=== PATIENT | female | born 1930 | race African-American/Black ===

== ENCOUNTER 2017-04-23 08:13 | Inpatient (IN) | payer MEDICARE ==
--- NOTE | 2017-04-23 08:31 | PDOC ---
*Physical Exam - Vital Signs Last Vital Signs Temp Pulse Resp BP Pulse Ox 97.8 F 65 17 164/77 98 04/23/17 08:15 04/23/17 08:15 04/23/17 08:15 04/23/17 08:15 04/23/17 08:15 - Physical Exam Comments: 04/23/17 08:31 Pt seen by the Advanced Practice Provider under my direct supervision Pt interviewed and examined Ancillary studies reviewed I agree with plan as outlined by the Advanced Practice Provider ED Treatment Course - LABORATORY CBC & Chemistry Diagram: 04/24/17 07:20 04/24/17 07:20 *DC/Admit/Observation/Transfer Diagnosis at time of Disposition: Diverticulitis - Discharge Dispostion Condition at time of disposition: Fair
--- NOTE | 2017-04-23 09:51 | PDOC ---
History of Present Illness - General Chief Complaint: Pain Stated Complaint: ABD/LEFT FLANK PAIN Time Seen by Provider: 04/23/17 08:24 History Source: Patient - History of Present Illness Timing/Duration: reports: constant Quality: reports: mild Past History - Past Medical History Allergies/Adverse Reactions: Allergies Allergy/AdvReac Type Severity Reaction Status Date / Time No Known Allergies Allergy Verified 04/23/17 08:18 Home Medications: Ambulatory Orders Aspirin [ASA -] 81 mg PO DAILY #0 tab.chew 02/22/15 Polyethylene Glycol 3350 [Miralax 119 gm Btl -] 17 gm PO BID #0 bottle 02/22/15 Docusate Sodium [Colace] 100 mg PO BID PRN 04/09/15 Metformin HCl [Glucophage] 1,000 mg PO BID 04/09/15 Omeprazole [Prilosec] 20 mg PO Q2D 04/09/15 Prednisone [Deltasone -] 1 mg PO DAILY 04/09/15 Atenolol [Tenormin -] 25 mg PO DAILY 04/23/17 Hydralazine HCl [Apresoline -] 10 mg PO DAILY 04/23/17 Diabetes: Yes HTN: Yes Liver Disease: Yes Suicide Attempt (Hx): No - Surgical History Cholecystectomy: Yes - Psycho/Social/Smoking Cessation Hx Anxiety: No Suicidal Ideation: No Smoking Status: No Smoking History: Never smoked Number of Cigarettes Smoked Daily: 0 Hx Alcohol Use: No Drug/Substance Use Hx: No Substance Use Type: None Hx Substance Use Treatment: No Review of Systems - Review of Systems Constitutional: No: Chills, Fever Respiratory: No: Shortness of Breath Cardiac (ROS): No: Chest Pain ABD/GI: No: Nausea, Vomiting : No: Dysuria *Physical Exam - Vital Signs Last Vital Signs Temp Pulse Resp BP Pulse Ox 97.8 F 65 17 164/77 98 04/23/17 08:15 04/23/17 08:15 04/23/17 08:15 04/23/17 08:15 04/23/17 08:15 - Physical Exam General Appearance: Yes: Appropriately Dressed. No: Apparent Distress HEENT: positive: Normal Voice Neck: positive: Supple Respiratory/Chest: positive: Lungs Clear, Normal Breath Sounds. negative: Respiratory Distress Cardiovascular: positive: Regular Rate, S1, S2 Gastrointestinal/Abdominal: positive: Tender (mild ttp to deep palpation to L lower abd, adjacent to LLQ, no CVAT) ED Treatment Course - LABORATORY CBC & Chemistry Diagram: 04/23/17 09:41 04/23/17 09:41 - RADIOLOGY Radiology Studies Ordered: Category Date Time Status ABDOMEN & PELVIS CT WITH CONTR [CT] Stat CT Scan 04/23/17 09:33 Ordered Medical Decision Making - Medical Decision Making 04/23/17 10:38 87 yo F, HTN, DM, TIA, s/p buddy, BIB son for abd pain. Pt reports L sided abd pain x 3 days that only hurts with palpation. No n/v/f/c, change in BM or dysuria. No h/o simialr pain see exam R/o diverticulitis -labs -CT 04/23/17 12:28 CT read as acute diverticulitis to mid and distal sigmoid with microperforation , no abscess. Labs unremarkable. Patient remains stable and well appearing at this time w/ no abd distention or other peritoneal signs on repeat abd exam. Abx in progress. Spoke to surgery, wants pt NPO. Will go to hospitalist service *DC/Admit/Observation/Transfer Diagnosis at time of Disposition: Diverticulitis Qualifiers: Diverticulitis site: large intestine Diverticulitis bleeding: without bleeding Diverticulitis complication: with perforation Qualified Code(s): K57.20 - Diverticulitis of large intestine with perforation and abscess without bleeding - Discharge Dispostion Condition at time of disposition: Fair Admit: Yes - Referrals Referrals: Ignacio Coronel [Primary Care Provider] -
[2017-04-23 10:05] LABS: BASOPHIL 0.7 % (0-2.0); MCH 29.6 pg (25.7-33.7); MCHC 32.5 g/dl (32.0-36.0); MEAN CELL VOLUME 91.1 fl (80-96); MEAN PLT VOLUME 9.7 fl (7.5-11.1); NEUTROPHILS 78.5 % (42.8-82.8); PLATELET COUNT 164 K/MM3 (134-434); RDW 14.5 % (11.6-15.6); WHITE BLOOD COUNT 9.6 K/mm3 (4.0-10.0)
[2017-04-23 10:36] LABS: ALBUMIN 3.3 g/dl (3.4-5.0); ANION GAP 11 (8-16); CO2 28 mmol/L (21-32); CREATININE 0.9 mg/dL (0.55-1.02); GLUCOSE,RANDOM 223 mg/dL (74-106); SGOT/AST 10 U/L (15-37); SGPT/ALT 15 U/L (12-78)
[2017-04-23 10:38] LABS: BILIRUBIN,TOTAL 0.5 mg/dL (0.2-1.0); TOT PROT 6.4 g/dl (6.4-8.2)
[2017-04-23 10:39] LABS: ALK PHOS 67 U/L (45-117)
[2017-04-23] MEDS ORDERED: METRONIDAZOLE 500 MG PREMIXED 100 ML IVPB ONE ×2 (12:06→12:23)
[2017-04-23] MEDS ORDERED: CIPROFLOXACIN 400 MG/D5W 200 ML IVPB ONE (12:06)
[2017-04-23 12:24] LABS: URINE APPEARANCE CLEAR; URINE BILIRUBIN NEGATIVE (NEGATIVE); URINE BLOOD NEGATIVE (NEGATIVE); URINE COLOR STRAW; URINE GLUCOSE (UA) NEGATIVE (NEGATIVE); URINE KETONE NEGATIVE (NEGATIVE); URINE LEUK ESTERASE NEGATIVE (NEGATIVE); URINE NITRITE NEGATIVE (NEGATIVE); URINE PROTEIN NEGATIVE (NEGATIVE); URINE UROBILINOGEN NEGATIVE E.U./dl (0.2-1.0)
[2017-04-23] MEDS ORDERED: SODIUM CHLORIDE 1,000 ML IV STA (12:28)
[2017-04-23] MEDS ORDERED: SODIUM CHLORIDE 500 ML IV STA (12:35)
[2017-04-23] MEDS ORDERED: ATENOLOL 25 MG TABLET (FP) PO ONE (12:59)
[2017-04-23] MEDS ORDERED: hydrALAZINE HCL 10 MG TABLET PO ONE (12:59)
[2017-04-23] MEDS ORDERED: ATENOLOL 25 MG TABLET (FP) ONE (13:02)
--- NOTE | 2017-04-23 13:53 | PDOC ---
*Physical Exam - Vital Signs Last Vital Signs Temp Pulse Resp BP Pulse Ox 99 F 62 16 177/84 98 04/23/17 13:15 04/23/17 13:15 04/23/17 13:15 04/23/17 13:15 04/23/17 13:15 ED Treatment Course - LABORATORY CBC & Chemistry Diagram: 04/23/17 09:41 04/23/17 09:41 - ADDITIONAL ORDERS Additional order review: Laboratory Results 04/23/17 04/23/17 12:16 09:41 Sodium 144 Potassium 4.2 Chloride 105 Carbon Dioxide 28 Anion Gap 11 BUN 13 Creatinine 0.9 Creat Clearance w eGFR 59.23 Random Glucose 223 H Calcium 9.0 Total Bilirubin 0.5 D AST 10 L D ALT 15 D Alkaline Phosphatase 67 D Total Protein 6.4 Albumin 3.3 L D Urine Color Straw Urine Appearance Clear Urine pH 5.0 Urine Protein Negative Urine Glucose (UA) Negative Urine Ketones Negative Urine Blood Negative Urine Nitrite Negative Urine Bilirubin Negative Urine Urobilinogen Negative Ur Leukocyte Esterase Negative 04/23/17 09:41 RBC 3.65 MCV 91.1 MCHC 32.5 RDW 14.5 MPV 9.7 D Neutrophils % 78.5 Lymphocytes % 12.1 D Monocytes % 6.7 Eosinophils % 2.0 D Basophils % 0.7 D - RADIOLOGY Radiology Studies Ordered: Category Date Time Status ABDOMEN & PELVIS CT WITH CONTR [CT] Stat CT Scan 04/23/17 09:33 Completed - Medications Given in the ED: ED Medications Discontinued Medications Generic Name Dose Route Start Last Admin Trade Name Freq PRN Reason Stop Dose Admin Atenolol 25 mg 04/23/17 12:59 04/23/17 13:15 Tenormin - PO 04/23/17 13:00 25 mg ONCE ONE Administration Ciprofloxacin/Dextrose 200 mls @ 200 mls/hr 04/23/17 12:06 04/23/17 13:23 Cipro 400 Mg Premix Ivpb (Restricted To Id) IVPB 04/23/17 13:05 200 mls/hr ONCE ONE Administration Metronidazole 100 mls @ 100 mls/hr 04/23/17 12:06 04/23/17 12:27 Flagyl 500mg Premixed Ivpb - IVPB 04/23/17 13:05 100 mls/hr ONCE ONE Administration Sodium Chloride 1,000 mls @ 1,000 mls/hr 04/23/17 12:28 04/23/17 12:54 Normal Saline - IV 04/23/17 13:27 Not Given ASDIR STA Sodium Chloride 500 mls @ 1,000 mls/hr 04/23/17 12:35 04/23/17 13:15 Normal Saline - IV 04/23/17 12:57 1,000 mls/hr ASDIR STA Administration *DC/Admit/Observation/Transfer Diagnosis at time of Disposition: Diverticulitis Qualifiers: Diverticulitis site: large intestine Diverticulitis bleeding: without bleeding Diverticulitis complication: with perforation Qualified Code(s): K57.20 - Diverticulitis of large intestine with perforation and abscess without bleeding - Discharge Dispostion Condition at time of disposition: Fair Admit: Yes
[2017-04-23] MEDS ORDERED: morphine CARPU-JECT 4 MG/1 ML DISP.SYRIN IVPUSH ONE (14:59)
[2017-04-23] MEDS ORDERED: morphine CARPU-JECT 2 MG/1 ML DISP.SYRIN ONE (15:48)
--- NOTE | 2017-04-23 16:17 | CONSULT ---
Consult Consult Specialty:: Surgery Reason for Consultation:: Abdominal pain , acute diverticulitis with microperforation. - History of Present Illness Chief Complaint: Abdominal pain for 2 days - History Source History Provided By: Patient - Past Medical History Cardio/Vascular: Yes: HTN, Hyperlipdemia Endocrine: Yes: Diabetes Mellitus - Past Surgical History Past Surgical History: Yes: Cholecystectomy, , Hysterectomy - Alcohol/Substance Use Hx Alcohol Use: No - Smoking History Smoking history: Never smoked Aproximately how many cigarettes per day: 0 Home Medications - Allergies Allergies/Adverse Reactions: Allergies Allergy/AdvReac Type Severity Reaction Status Date / Time No Known Allergies Allergy Verified 04/23/17 08:18 - Home Medications Home Medications: Ambulatory Orders Aspirin [ASA -] 81 mg PO DAILY #0 tab.chew 02/22/15 Polyethylene Glycol 3350 [Miralax 119 gm Btl -] 17 gm PO BID #0 bottle 02/22/15 Docusate Sodium [Colace] 100 mg PO BID PRN 04/09/15 Metformin HCl [Glucophage] 1,000 mg PO BID 04/09/15 Omeprazole [Prilosec] 20 mg PO Q2D 04/09/15 Prednisone [Deltasone -] 1 mg PO DAILY 04/09/15 Atenolol [Tenormin -] 25 mg PO DAILY 04/23/17 Hydralazine HCl [Apresoline -] 10 mg PO DAILY 04/23/17 Family Disease History - Family Disease History Family Disease History: CA: Mother (lung) Physical Exam Vital Signs: Vital Signs Temperature 98.8 F 04/23/17 15:38 Pulse Rate 63 04/23/17 15:38 Respiratory Rate 16 04/23/17 15:38 Blood Pressure 177/90 04/23/17 15:38 O2 Sat by Pulse Oximetry (%) 98 04/23/17 15:38 Gastrointestinal: Yes: Tenderness (Tender in left lower quadrant) Imaging - Results Cat Scan: Report Reviewed, Image Reviewed Problem List - Problems (1) Acute diverticulitis Code(s): K57.92 - DVTRCLI OF INTEST, PART UNSP, W/O PERF OR ABSCESS W/O BLEED (2) Perforation bowel Code(s): K63.1 - PERFORATION OF INTESTINE (NONTRAUMATIC) (3) Diabetes Code(s): E11.9 - TYPE 2 DIABETES MELLITUS WITHOUT COMPLICATIONS (4) Hypertension Code(s): I10 - ESSENTIAL (PRIMARY) HYPERTENSION (5) Intractable back pain Code(s): M54.9 - DORSALGIA, UNSPECIFIED Assessment/Plan Acute diverticulitis with perforation , no abscess. Continue antibiotics, Follow up abdominal X-ray. Surgery of not improved.
[2017-04-23 17:11] VITALS: BMI 29.1
[2017-04-23] MEDS ORDERED: KETOROLAC TROMETHAMINE 15 MG/ML VIAL IVPUSH PRN (22:38)
[2017-04-23] MEDS: LEVOFLOXACIN 500 MG IVPB 100 ML IVPB SCH (23:04)
[2017-04-23] MEDS: METRONIDAZOLE 500 MG PREMIXED 100 ML IVPB SCH (23:04)
[2017-04-23] MEDS: SODIUM CHLORIDE 0.45% 1,000 ML IV SCH (23:05)
[2017-04-24] MEDS: METRONIDAZOLE 500 MG PREMIXED 100 ML IVPB SCH ×3 (02:36→17:38)
[2017-04-24] MEDS: INSULIN SLIDING SCALE (NOVOLOG) 1 VIAL SQ SCH ×4 (06:32→22:41)
[2017-04-24 08:28] LABS: BASOPHIL 0.8 % (0-2.0); MCH 29.8 pg (25.7-33.7); MCHC 33.1 g/dl (32.0-36.0); MEAN CELL VOLUME 89.9 fl (80-96); MEAN PLT VOLUME 8.9 fl (7.5-11.1); NEUTROPHILS 67.8 % (42.8-82.8); PLATELET COUNT 160 K/MM3 (134-434); RDW 14.6 % (11.6-15.6); WHITE BLOOD COUNT 6.5 K/mm3 (4.0-10.0)
[2017-04-24 09:02] LABS: ALBUMIN 2.9 g/dl (3.4-5.0); ANION GAP 8 (8-16); CALCIUM 8.6 mg/dL (8.5-10.1); CO2 27 mmol/L (21-32); GLUCOSE,RANDOM 163 mg/dL (74-106)
[2017-04-24 09:06] LABS: ALK PHOS 59 U/L (45-117); BILIRUBIN,TOTAL 0.8 mg/dL (0.2-1.0); CREATININE 0.8 mg/dL (0.55-1.02); SGOT/AST 10 U/L (15-37); SGPT/ALT 13 U/L (12-78); TOT PROT 5.7 g/dl (6.4-8.2)
[2017-04-24] MEDS: HEPARIN NA (PORCINE) 5,000 UNITS/ML 1ML VIAL SQ SCH ×2 (10:58→22:35)
--- NOTE | 2017-04-24 12:07 | HP ---
Admitting History and Physical - Admission History of Present Illness: Pt is a 87 y/o female w/ PMH significant for HTN, diabetes and TIA. Pt presented to the ER w/ a 3 day h/o abdominal pain wc was mostly localized to the LLQ. Pt denied any fever/chills and no nausea/vomiting. In the ER pt had ct scan abd/pelvis wc showed acute diverticulitis w/ microperforation but no abscess. - Past Medical History [employer]: Yes: TIA Cardiovascular: Yes: HTN, Hyperlipdemia ...: No Endocrine: Yes: Diabetes Mellitus - Past Surgical History Past Surgical History: Yes: Cholecystectomy, , Hysterectomy - Smoking History Smoking history: Never smoked Aproximately how many cigarettes per day: 0 - Alcohol/Substance Use Hx Alcohol Use: No Home Medications - Allergies Allergies/Adverse Reactions: Allergies Allergy/AdvReac Type Severity Reaction Status Date / Time No Known Allergies Allergy Verified 04/23/17 08:18 - Home Medications Home Medications: Ambulatory Orders Aspirin [ASA -] 81 mg PO DAILY #0 tab.chew 02/22/15 Polyethylene Glycol 3350 [Miralax 119 gm Btl -] 17 gm PO BID #0 bottle 02/22/15 Docusate Sodium [Colace] 100 mg PO BID PRN 04/09/15 Metformin HCl [Glucophage] 1,000 mg PO BID 04/09/15 Omeprazole [Prilosec] 20 mg PO Q2D 04/09/15 Prednisone [Deltasone -] 1 mg PO DAILY 04/09/15 Atenolol [Tenormin -] 25 mg PO DAILY 04/23/17 Hydralazine HCl [Apresoline -] 10 mg PO DAILY 04/23/17 Family Disease History - Family Disease History Family History: Unremarkable Family Disease History: CA: Mother (lung) Review of Systems - Review of Systems Constitutional: reports: Loss of Appetite, Weakness Eyes: reports: No Symptoms HENT: reports: No Symptoms Neck: reports: No Symptoms Cardiovascular: reports: No Symptoms Respiratory: reports: No Symptoms Gastrointestinal: reports: Abdominal Pain Physical Examination Vital Signs: Vital Signs Temperature 98.4 F 04/24/17 06:00 Pulse Rate 60 04/24/17 06:00 Respiratory Rate 18 04/24/17 09:00 Blood Pressure 155/60 04/24/17 06:00 O2 Sat by Pulse Oximetry (%) 94 L 04/24/17 09:00 Constitutional: Yes: No Distress Eyes: Yes: WNL HENT: Yes: WNL Neck: Yes: WNL, Supple Cardiovascular: Yes: WNL, Regular Rate and Rhythm Respiratory: Yes: WNL, Regular, CTA Bilaterally Gastrointestinal: Yes: Normal Bowel Sounds, Other (minimal LLQ abdominal pain) Musculoskeletal: Yes: WNL Extremities: Yes: WNL Edema: No Neurological: Yes: WNL, Alert, Oriented ...Motor Strength: WNL Labs: CBC, BMP 04/24/17 07:20 04/24/17 07:20 Problem List - Problems (1) Acute diverticulitis Assessment/Plan: Acute diverticulitis w/ microperforation Cont IV antibxs WBC is normal Cont IVF/NPO As per surgery Code(s): K57.92 - DVTRCLI OF INTEST, PART UNSP, W/O PERF OR ABSCESS W/O BLEED (2) Diabetes Assessment/Plan: Cont sliding scale w/ novolog Code(s): E11.9 - TYPE 2 DIABETES MELLITUS WITHOUT COMPLICATIONS (3) Hypertension Assessment/Plan: Will hold antihypertensives due to fact pt is NPO Monitor BP Code(s): I10 - ESSENTIAL (PRIMARY) HYPERTENSION
--- NOTE | 2017-04-24 17:25 | EKG ---
Test Reason : Blood Pressure : / mmHG Vent. Rate : 061 BPM Atrial Rate : 061 BPM P-R Int : 174 ms QRS Dur : 090 ms QT Int : 426 ms P-R-T Axes : 060 -05 146 degrees QTc Int : 428 ms NORMAL SINUS RHYTHM POSSIBLE ANTERIOR INFARCT , AGE UNDETERMINED T WAVE ABNORMALITY, CONSIDER LATERAL ISCHEMIA ABNORMAL ECG Confirmed by MD ANGELIA, SHARI ([id number]) on 04/24/2017 5:24:46 PM Referred By: Confirmed By:SHARI GALAN MD
[2017-04-24] MEDS ORDERED: PT OWN MED DRAWER 7, Y5N ONE (18:44)
--- NOTE | 2017-04-24 18:56 | PN ---
Progress Note, Physician - Current Medication List Current Medications: Active Medications Heparin Sodium (Porcine) (Heparin -) 5,000 unit SQ BID [facility] Last Admin: 04/24/17 10:58 Dose: 5,000 unit Metronidazole (Flagyl 500mg Premixed Ivpb -) 100 mls @ 100 mls/hr IVPB Q8H-IV [facility] Last Admin: 04/24/17 17:38 Dose: 100 mls/hr Levofloxacin (Levaquin 500 Mg Premixed Ivpb -) 100 mls @ 100 mls/hr IVPB DAILY@ 2200 [facility] Last Admin: 04/23/17 23:04 Dose: 100 mls/hr Sodium Chloride (1/2 Normal Saline) 1,000 mls @ 75 mls/hr IV ASDIR [facility] Last Admin: 04/23/17 23:05 Dose: 75 mls/hr Insulin Aspart (Novolog Vial Sliding Scale -) 1 vial SQ ACHS [facility] PRN Reason: Protocol Last Admin: 04/24/17 17:38 Dose: Not Given Ketorolac Tromethamine (Toradol Injection -) 15 mg IVPUSH Q6H PRN PRN Reason: PAIN Stop: 04/28/17 22:37 - Objective Vital Signs: Vital Signs Temperature 98.6 F 04/24/17 15:45 Pulse Rate 66 04/24/17 15:45 Respiratory Rate 18 04/24/17 15:45 Blood Pressure 142/66 04/24/17 15:45 O2 Sat by Pulse Oximetry (%) 94 L 04/24/17 09:00 Labs: CBC, BMP 04/24/17 07:20 04/24/17 07:20 Problem List - Problems (1) Acute diverticulitis Code(s): K57.92 - DVTRCLI OF INTEST, PART UNSP, W/O PERF OR ABSCESS W/O BLEED (2) Perforation bowel Code(s): K63.1 - PERFORATION OF INTESTINE (NONTRAUMATIC) (3) Diabetes Code(s): E11.9 - TYPE 2 DIABETES MELLITUS WITHOUT COMPLICATIONS (4) Hypertension Code(s): I10 - ESSENTIAL (PRIMARY) HYPERTENSION (5) Intractable back pain Code(s): M54.9 - DORSALGIA, UNSPECIFIED Assessment/Plan Surgery:' Patient is afebrile. Abdomen is soft, minimally tender. No guarding. Abdominal X-ray is not done WBC is normal. Continue antibiotics. Keep NPO.
[2017-04-24] MEDS: SODIUM CHLORIDE 0.45% 1,000 ML IV SCH ×2 (22:16→22:34)
[2017-04-24] MEDS: LEVOFLOXACIN 500 MG IVPB 100 ML IVPB SCH (22:35)
[2017-04-25] MEDS: METRONIDAZOLE 500 MG PREMIXED 100 ML IVPB SCH ×2 (01:49→09:24)
[2017-04-25] MEDS: INSULIN SLIDING SCALE (NOVOLOG) 1 VIAL SQ SCH ×4 (06:17→22:33)
[2017-04-25] MEDS: HEPARIN NA (PORCINE) 5,000 UNITS/ML 1ML VIAL SQ SCH ×2 (09:24→22:33)
--- NOTE | 2017-04-25 11:22 | PN ---
Progress Note, Physician - Current Medication List Current Medications: Active Medications Heparin Sodium (Porcine) (Heparin -) 5,000 unit SQ BID [facility] Last Admin: 04/25/17 09:24 Dose: 5,000 unit Metronidazole (Flagyl 500mg Premixed Ivpb -) 100 mls @ 100 mls/hr IVPB Q8H-IV [facility] Last Admin: 04/25/17 09:24 Dose: 100 mls/hr Levofloxacin (Levaquin 500 Mg Premixed Ivpb -) 100 mls @ 100 mls/hr IVPB DAILY@ 2200 [facility] Last Admin: 04/24/17 22:35 Dose: 100 mls/hr Sodium Chloride (1/2 Normal Saline) 1,000 mls @ 75 mls/hr IV ASDIR [facility] Last Admin: 04/24/17 22:34 Dose: 75 mls/hr Insulin Aspart (Novolog Vial Sliding Scale -) 1 vial SQ ACHS [facility] PRN Reason: Protocol Last Admin: 04/25/17 06:17 Dose: Not Given Ketorolac Tromethamine (Toradol Injection -) 15 mg IVPUSH Q6H PRN PRN Reason: PAIN Stop: 04/28/17 22:37 - Objective Vital Signs: Vital Signs Temperature 98.3 F 04/25/17 06:00 Pulse Rate 60 04/25/17 09:29 Respiratory Rate 18 04/25/17 09:29 Blood Pressure 142/84 04/25/17 09:29 O2 Sat by Pulse Oximetry (%) 96 04/24/17 20:36 Labs: CBC, BMP 04/24/17 07:20 04/24/17 07:20 Problem List - Problems (1) Acute diverticulitis Code(s): K57.92 - DVTRCLI OF INTEST, PART UNSP, W/O PERF OR ABSCESS W/O BLEED (2) Perforation bowel Code(s): K63.1 - PERFORATION OF INTESTINE (NONTRAUMATIC) (3) Diabetes Code(s): E11.9 - TYPE 2 DIABETES MELLITUS WITHOUT COMPLICATIONS (4) Hypertension Code(s): I10 - ESSENTIAL (PRIMARY) HYPERTENSION (5) Intractable back pain Code(s): M54.9 - DORSALGIA, UNSPECIFIED Assessment/Plan Surgery: Patient is afebrile. WBC is normal. No abdominal pain. Mild abdominal tenderness. Xray of the abdomen shows no free air in the abdomen. Continue antibiotics. Repeat abdominal CT scan in 2-3 days, if no abscess or perforation noted, will resume oral feeding.
[2017-04-25] MEDS: SODIUM CHLORIDE 0.45% 1,000 ML IV SCH (12:56)
--- NOTE | 2017-04-25 17:28 | CONSULT ---
Consult Consult Specialty:: infectious diseases Reason for Consultation:: diverticulitis - History of Present Illness Chief Complaint: abd pain History of Present Illness: 87 yo F, HTN, DM, TIA, s/p buddy, BIB son for abd pain. Pt reports L sided abd pain x 3 days patient states that the pain occurs with palpation patient was given abx on admission currently patient feels better but still has mild abd pain otherwise she says she has no issues - History Source History Provided By: Patient Limitations to Obtaining History: No Limitations - Past Medical History Cardio/Vascular: Yes: HTN, Hyperlipdemia ...: No Endocrine: Yes: Diabetes Mellitus - Past Surgical History Past Surgical History: Yes: Cholecystectomy, , Hysterectomy - Alcohol/Substance Use Hx Alcohol Use: No - Smoking History Smoking history: Never smoked Aproximately how many cigarettes per day: 0 Home Medications - Allergies Allergies/Adverse Reactions: Allergies Allergy/AdvReac Type Severity Reaction Status Date / Time No Known Allergies Allergy Verified 04/23/17 08:18 - Home Medications Home Medications: Ambulatory Orders Aspirin [ASA -] 81 mg PO DAILY #0 tab.chew 02/22/15 Polyethylene Glycol 3350 [Miralax 119 gm Btl -] 17 gm PO BID #0 bottle 02/22/15 Docusate Sodium [Colace] 100 mg PO BID PRN 04/09/15 Metformin HCl [Glucophage] 1,000 mg PO BID 04/09/15 Omeprazole [Prilosec] 20 mg PO Q2D 04/09/15 Prednisone [Deltasone -] 1 mg PO DAILY 04/09/15 Atenolol [Tenormin -] 25 mg PO DAILY 04/23/17 Hydralazine HCl [Apresoline -] 10 mg PO DAILY 04/23/17 Family Disease History - Family Disease History Family Disease History: CA: Mother (lung) Review of Systems - Review of Systems Constitutional: reports: No Symptoms Eyes: reports: No Symptoms HENT: reports: No Symptoms Neck: reports: No Symptoms Cardiovascular: reports: No Symptoms Respiratory: reports: No Symptoms Gastrointestinal: reports: Abdominal Pain (llq) Genitourinary: reports: No Symptoms Neurological: reports: No Symptoms Endocrine: reports: No Symptoms Hematology/Lymphatic: reports: No Symptoms Psychiatric: reports: No Symptoms Physical Exam Vital Signs: Vital Signs Temperature 98.0 F 04/25/17 16:15 Pulse Rate 66 04/25/17 16:15 Respiratory Rate 18 04/25/17 16:15 Blood Pressure 159/80 04/25/17 16:15 O2 Sat by Pulse Oximetry (%) 97 04/25/17 09:00 Constitutional: Yes: Well Nourished, Calm, Mild Distress Eyes: Yes: Conjunctiva Clear Cardiovascular: Yes: Regular Rate and Rhythm Respiratory: Yes: Regular, CTA Bilaterally Gastrointestinal: Yes: Soft, Tenderness (llq) Musculoskeletal: Yes: WNL Extremities: Yes: WNL Neurological: Yes: Alert, Oriented Psychiatric: Yes: Alert, Oriented Labs: CBC, BMP 04/24/17 07:20 04/24/17 07:20 Imaging - Results X-ray: Report Reviewed, Image Reviewed Cat Scan: Report Reviewed, Image Reviewed Assessment/Plan Problem List - Problems (1) Acute diverticulitis Code(s): K57.92 - DVTRCLI OF INTEST, PART UNSP, W/O PERF OR ABSCESS W/O BLEED (2) Perforation bowel Code(s): K63.1 - PERFORATION OF INTESTINE (NONTRAUMATIC) (3) Diabetes Code(s): E11.9 - TYPE 2 DIABETES MELLITUS WITHOUT COMPLICATIONS (4) Hypertension Code(s): I10 - ESSENTIAL (PRIMARY) HYPERTENSION (5) Intractable back pain Code(s): M54.9 - DORSALGIA, UNSPECIFIED patients ct scan shows micro perf plan as per surgery will start on abx hydration rest as per primary
[2017-04-25] MEDS: PIPERACILLIN/TAZOB 3.375 GM 50 ML IVPB SCH (18:14)
--- NOTE | 2017-04-25 19:46 | PN ---
Progress Note, Physician History of Present Illness: No new complaints - Current Medication List Current Medications: Active Medications Heparin Sodium (Porcine) (Heparin -) 5,000 unit SQ BID [facility] Last Admin: 04/25/17 09:24 Dose: 5,000 unit Levofloxacin (Levaquin 500 Mg Premixed Ivpb -) 100 mls @ 100 mls/hr IVPB DAILY@ 2200 [facility] Last Admin: 04/24/17 22:35 Dose: 100 mls/hr Sodium Chloride (1/2 Normal Saline) 1,000 mls @ 75 mls/hr IV ASDIR [facility] Last Admin: 04/25/17 12:56 Dose: 75 mls/hr Piperacillin Sod/Tazobactam Sod (Zosyn 3.375gm Ivpb (Pre-Docked)) 50 mls @ 100 mls/hr IVPB Q8H-IV [facility] PRN Reason: Protocol Last Admin: 04/25/17 18:14 Dose: 100 mls/hr Insulin Aspart (Novolog Vial Sliding Scale -) 1 vial SQ ACHS [facility] PRN Reason: Protocol Last Admin: 04/25/17 18:16 Dose: Not Given Ketorolac Tromethamine (Toradol Injection -) 15 mg IVPUSH Q6H PRN PRN Reason: PAIN Stop: 04/28/17 22:37 - Objective Vital Signs: Vital Signs Temperature 98.8 F 04/25/17 18:12 Pulse Rate 71 04/25/17 18:12 Respiratory Rate 19 04/25/17 18:12 Blood Pressure 155/84 04/25/17 18:12 O2 Sat by Pulse Oximetry (%) 97 04/25/17 09:00 Constitutional: Yes: No Distress HENT: Yes: WNL Neck: Yes: WNL, Supple Cardiovascular: Yes: WNL, Regular Rate and Rhythm Respiratory: Yes: WNL, Regular, CTA Bilaterally Gastrointestinal: Yes: Normal Bowel Sounds, Soft Labs: CBC, BMP 04/24/17 07:20 04/24/17 07:20 Problem List - Problems (1) Acute diverticulitis Assessment/Plan: Acute diverticulitis w/ microperforation Cont IV antibxs WBC is normal Cont IVF/NPO As per surgery ID consult Code(s): K57.92 - DVTRCLI OF INTEST, PART UNSP, W/O PERF OR ABSCESS W/O BLEED (2) Diabetes Assessment/Plan: Cont sliding scale w/ novolog Code(s): E11.9 - TYPE 2 DIABETES MELLITUS WITHOUT COMPLICATIONS (3) Hypertension Assessment/Plan: Will hold antihypertensives due to fact pt is NPO Monitor BP Code(s): I10 - ESSENTIAL (PRIMARY) HYPERTENSION
[2017-04-25] MEDS: LEVOFLOXACIN 500 MG IVPB 100 ML IVPB SCH (22:28)
[2017-04-26] MEDS: PIPERACILLIN/TAZOB 3.375 GM 50 ML IVPB SCH ×3 (01:57→16:59)
[2017-04-26] MEDS: SODIUM CHLORIDE 0.45% 1,000 ML IV SCH ×2 (02:02→16:59)
[2017-04-26] MEDS: INSULIN SLIDING SCALE (NOVOLOG) 1 VIAL SQ SCH ×4 (06:37→23:41)
[2017-04-26] MEDS: HEPARIN NA (PORCINE) 5,000 UNITS/ML 1ML VIAL SQ SCH ×2 (09:48→21:21)
--- NOTE | 2017-04-26 12:53 | PN ---
Progress Note, Physician - Current Medication List Current Medications: Active Medications Heparin Sodium (Porcine) (Heparin -) 5,[address] [facility] Last Admin: 04/26/17 09:48 Dose: 5,000 unit Levofloxacin (Levaquin 500 Mg Premixed Ivpb -) 100 mls @ 100 mls/hr IVPB DAILY@ 2200 [facility] Last Admin: 04/25/17 22:28 Dose: 100 mls/hr Sodium Chloride (1/2 Normal Saline) 1,000 mls @ 75 mls/hr IV ASDIR [facility] Last Admin: 04/26/17 02:02 Dose: 75 mls/hr Piperacillin Sod/Tazobactam Sod (Zosyn 3.375gm Ivpb (Pre-Docked)) 50 mls @ 100 mls/hr IVPB Q8H-IV [facility] PRN Reason: Protocol Last Admin: 04/26/17 09:48 Dose: 100 mls/hr Insulin Aspart (Novolog Vial Sliding Scale -) 1 vial SQ ACHS [facility] PRN Reason: Protocol Last Admin: 04/26/17 11:21 Dose: Not Given Ketorolac Tromethamine (Toradol Injection -) 15 mg IVPUSH Q6H PRN PRN Reason: PAIN Stop: 04/28/17 22:37 - Objective Vital Signs: Vital Signs Temperature 98.2 F 04/26/17 06:00 Pulse Rate 57 L 04/26/17 06:00 Respiratory Rate 18 04/26/17 06:00 Blood Pressure 143/58 04/26/17 06:00 O2 Sat by Pulse Oximetry (%) 98 04/25/17 22:00 Labs: CBC, BMP 04/24/17 07:20 04/24/17 07:20 Problem List - Problems (1) Acute diverticulitis Code(s): K57.92 - DVTRCLI OF INTEST, PART UNSP, W/O PERF OR ABSCESS W/O BLEED (2) Perforation bowel Code(s): K63.1 - PERFORATION OF INTESTINE (NONTRAUMATIC) (3) Diabetes Code(s): E11.9 - TYPE 2 DIABETES MELLITUS WITHOUT COMPLICATIONS (4) Hypertension Code(s): I10 - ESSENTIAL (PRIMARY) HYPERTENSION (5) Intractable back pain Code(s): M54.9 - DORSALGIA, UNSPECIFIED Assessment/Plan Surgery: Patient is comfortable, no abdominal pain. WBC is normal, Chemistry is normal. follow up abdominal CT scan tomorrow, if normal will resume oral feeding.
[2017-04-26 12:59] LABS: BASOPHIL 0.7 % (0-2.0); EOSINOPHIL 0.8 % (0-4.5); MCH 29.9 pg (25.7-33.7); MCHC 33.2 g/dl (32.0-36.0); MEAN CELL VOLUME 89.9 fl (80-96); MEAN PLT VOLUME 8.2 fl (7.5-11.1); NEUTROPHILS 66.4 % (42.8-82.8); PLATELET COUNT 210 K/MM3 (134-434); RDW 14.6 % (11.6-15.6); WHITE BLOOD COUNT 5.2 K/mm3 (4.0-10.0)
[2017-04-26 13:25] LABS: ALBUMIN 3.2 g/dl (3.4-5.0); ANION GAP 12 (8-16); CALCIUM 8.9 mg/dL (8.5-10.1); CO2 25 mmol/L (21-32); CREATININE 0.9 mg/dL (0.55-1.02); GLUCOSE,RANDOM 109 mg/dL (74-106); SGPT/ALT 15 U/L (12-78)
[2017-04-26 13:30] LABS: ALK PHOS 64 U/L (45-117); BILIRUBIN,TOTAL 0.6 mg/dL (0.2-1.0); SGOT/AST 21 U/L (15-37); TOT PROT 6.1 g/dl (6.4-8.2)
--- NOTE | 2017-04-26 16:50 | PN ---
Progress Note, Physician History of Present Illness: patient doing well today no abd pain according to the patient - Current Medication List Current Medications: Active Medications Heparin Sodium (Porcine) (Heparin -) 5,000 unit SQ BID [facility] Last Admin: 04/26/17 09:48 Dose: 5,000 unit Levofloxacin (Levaquin 500 Mg Premixed Ivpb -) 100 mls @ 100 mls/hr IVPB DAILY@ 2200 [facility] Last Admin: 04/25/17 22:28 Dose: 100 mls/hr Sodium Chloride (1/2 Normal Saline) 1,000 mls @ 75 mls/hr IV ASDIR [facility] Last Admin: 04/26/17 02:02 Dose: 75 mls/hr Piperacillin Sod/Tazobactam Sod (Zosyn 3.375gm Ivpb (Pre-Docked)) 50 mls @ 100 mls/hr IVPB Q8H-IV [facility]ICE PRN Reason: Protocol Last Admin: 04/26/17 09:48 Dose: 100 mls/hr Insulin Aspart (Novolog Vial Sliding Scale -) 1 vial SQ ACHS [facility] PRN Reason: Protocol Last Admin: 04/26/17 11:21 Dose: Not Given Ketorolac Tromethamine (Toradol Injection -) 15 mg IVPUSH Q6H PRN PRN Reason: PAIN Stop: 04/28/17 22:37 - Objective Vital Signs: Vital Signs Temperature 97.9 F 04/26/17 15:54 Pulse Rate 63 04/26/17 15:54 Respiratory Rate 18 04/26/17 15:54 Blood Pressure 160/81 04/26/17 15:54 O2 Sat by Pulse Oximetry (%) 96 04/26/17 09:00 Constitutional: Yes: No Distress, Calm Cardiovascular: Yes: Regular Rate and Rhythm Respiratory: Yes: Regular, CTA Bilaterally Gastrointestinal: Yes: Soft, Hypoactive Bowel Sounds, Other Musculoskeletal: Yes: WNL Extremities: Yes: WNL Neurological: Yes: Alert, Oriented Psychiatric: Yes: Alert, Oriented Labs: CBC, BMP 04/26/17 12:40 04/26/17 12:40 Assessment/Plan Problem List - Problems (1) Acute diverticulitis Code(s): K57.92 - DVTRCLI OF INTEST, PART UNSP, W/O PERF OR ABSCESS W/O BLEED (2) Perforation bowel Code(s): K63.1 - PERFORATION OF INTESTINE (NONTRAUMATIC) (3) Diabetes Code(s): E11.9 - TYPE 2 DIABETES MELLITUS WITHOUT COMPLICATIONS (4) Hypertension Code(s): I10 - ESSENTIAL (PRIMARY) HYPERTENSION (5) Intractable back pain Code(s): M54.9 - DORSALGIA, UNSPECIFIED patients ct scan shows micro perf plan repeat ct scan tomorrow continue abx rest as per primary
--- NOTE | 2017-04-26 21:02 | PN ---
Progress Note, Physician History of Present Illness: No new complaints - Current Medication List Current Medications: Active Medications Heparin Sodium (Porcine) (Heparin -) 5,000 unit SQ BID [facility] Last Admin: 04/26/17 09:48 Dose: 5,000 unit Levofloxacin (Levaquin 500 Mg Premixed Ivpb -) 100 mls @ 100 mls/hr IVPB DAILY@ 2200 [facility] Last Admin: 04/25/17 22:28 Dose: 100 mls/hr Sodium Chloride (1/2 Normal Saline) 1,000 mls @ 75 mls/hr IV ASDIR [facility] Last Admin: 04/26/17 16:59 Dose: 75 mls/hr Piperacillin Sod/Tazobactam Sod (Zosyn 3.375gm Ivpb (Pre-Docked)) 50 mls @ 100 mls/hr IVPB Q8H-IV [facility] PRN Reason: Protocol Last Admin: 04/26/17 16:59 Dose: 100 mls/hr Insulin Aspart (Novolog Vial Sliding Scale -) 1 vial SQ ACHS [facility] PRN Reason: Protocol Last Admin: 04/26/17 16:58 Dose: Not Given Ketorolac Tromethamine (Toradol Injection -) 15 mg IVPUSH Q6H PRN PRN Reason: PAIN Stop: 04/28/17 22:37 - Objective Vital Signs: Vital Signs Temperature 98.8 F 04/26/17 20:01 Pulse Rate 59 L 04/26/17 20:01 Respiratory Rate 14 04/26/17 20:01 Blood Pressure 148/66 04/26/17 20:01 O2 Sat by Pulse Oximetry (%) 96 04/26/17 09:00 Constitutional: Yes: No Distress Eyes: Yes: WNL HENT: Yes: WNL Neck: Yes: WNL, Supple Cardiovascular: Yes: WNL, Regular Rate and Rhythm Respiratory: Yes: WNL, Regular, CTA Bilaterally Gastrointestinal: Yes: WNL, Soft Labs: CBC, BMP 04/26/17 12:40 04/26/17 12:40 Problem List - Problems (1) Acute diverticulitis Assessment/Plan: Acute diverticulitis w/ microperforation Cont IV zosyn WBC is normal XRAY did not show any free air Cont IVF/NPO As per surgery Repeat ct scan abd/pelvis before advancing diet Code(s): K57.92 - DVTRCLI OF INTEST, PART UNSP, W/O PERF OR ABSCESS W/O BLEED (2) Diabetes Assessment/Plan: Cont sliding scale w/ novolog Code(s): E11.9 - TYPE 2 DIABETES MELLITUS WITHOUT COMPLICATIONS
[2017-04-26] MEDS: LEVOFLOXACIN 500 MG IVPB 100 ML IVPB SCH (21:22)
[2017-04-27] MEDS: SODIUM CHLORIDE 0.45% 1,000 ML IV SCH ×2 (03:04→05:57)
[2017-04-27] MEDS: PIPERACILLIN/TAZOB 3.375 GM 50 ML IVPB SCH ×3 (03:04→17:27)
[2017-04-27] MEDS: INSULIN SLIDING SCALE (NOVOLOG) 1 VIAL SQ SCH ×4 (06:01→22:23)
[2017-04-27] MEDS: HEPARIN NA (PORCINE) 5,000 UNITS/ML 1ML VIAL SQ SCH ×2 (09:42→22:14)
[2017-04-27] MEDS: amLODIPine BESYLATE 5 MG TABLET (FP) PO SCH (14:54)
--- NOTE | 2017-04-27 14:54 | PN ---
Progress Note, Physician History of Present Illness: patient stable no new issues feels a lot better - Current Medication List Current Medications: Active Medications Amlodipine Besylate (Norvasc -) 5 mg PO DAILY [facility] Heparin Sodium (Porcine) (Heparin -) 5,000 unit SQ BID [facility] Last Admin: 04/27/17 09:42 Dose: 5,000 unit Levofloxacin (Levaquin 500 Mg Premixed Ivpb -) 100 mls @ 100 mls/hr IVPB DAILY@ 2200 [facility] Last Admin: 04/26/17 21:22 Dose: 100 mls/hr Sodium Chloride (1/2 Normal Saline) 1,000 mls @ 75 mls/hr IV ASDIR [facility] Last Admin: 04/27/17 05:57 Dose: 75 mls/hr Piperacillin Sod/Tazobactam Sod (Zosyn 3.375gm Ivpb (Pre-Docked)) 50 mls @ 100 mls/hr IVPB Q8H-IV [facility] PRN Reason: Protocol Last Admin: 04/27/17 09:42 Dose: 100 mls/hr Insulin Aspart (Novolog Vial Sliding Scale -) 1 vial SQ ACHS [facility] PRN Reason: Protocol Last Admin: 04/27/17 11:13 Dose: Not Given Ketorolac Tromethamine (Toradol Injection -) 15 mg IVPUSH Q6H PRN PRN Reason: PAIN Stop: 04/28/17 22:37 - Objective Vital Signs: Vital Signs Temperature 98.5 F 04/27/17 06:00 Pulse Rate 74 04/27/17 06:00 Respiratory Rate 16 04/27/17 06:00 Blood Pressure 134/77 04/27/17 06:00 O2 Sat by Pulse Oximetry (%) 100 04/27/17 09:00 Constitutional: Yes: No Distress, Calm Cardiovascular: Yes: Regular Rate and Rhythm Respiratory: Yes: Regular, CTA Bilaterally Gastrointestinal: Yes: Soft Musculoskeletal: Yes: WNL Extremities: Yes: WNL Neurological: Yes: Alert, Oriented Psychiatric: Yes: Alert, Oriented Labs: CBC, BMP 04/26/17 12:40 04/26/17 12:40 Assessment/Plan Problem List - Problems (1) Acute diverticulitis Code(s): K57.92 - DVTRCLI OF INTEST, PART UNSP, W/O PERF OR ABSCESS W/O BLEED (2) Perforation bowel Code(s): K63.1 - PERFORATION OF INTESTINE (NONTRAUMATIC) (3) Diabetes Code(s): E11.9 - TYPE 2 DIABETES MELLITUS WITHOUT COMPLICATIONS (4) Hypertension Code(s): I10 - ESSENTIAL (PRIMARY) HYPERTENSION (5) Intractable back pain Code(s): M54.9 - DORSALGIA, UNSPECIFIED patients ct scan shows micro perf plan await ct scan report rest continue as per primary continue abx
--- NOTE | 2017-04-27 17:15 | PN ---
Progress Note, Physician - Current Medication List Current Medications: Active Medications Amlodipine Besylate (Norvasc -) 5 mg PO DAILY [facility] Last Admin: 04/27/17 14:54 Dose: 5 mg Heparin Sodium (Porcine) (Heparin -) 5,000 unit SQ BID [facility] Last Admin: 04/27/17 09:42 Dose: 5,000 unit Levofloxacin (Levaquin 500 Mg Premixed Ivpb -) 100 mls @ 100 mls/hr IVPB DAILY@ 2200 [facility] Last Admin: 04/26/17 21:22 Dose: 100 mls/hr Sodium Chloride (1/2 Normal Saline) 1,000 mls @ 75 mls/hr IV ASDIR [facility] Last Admin: 04/27/17 05:57 Dose: 75 mls/hr Piperacillin Sod/Tazobactam Sod (Zosyn 3.375gm Ivpb (Pre-Docked)) 50 mls @ 100 mls/hr IVPB Q8H-IV [facility] PRN Reason: Protocol Last Admin: 04/27/17 09:42 Dose: 100 mls/hr Insulin Aspart (Novolog Vial Sliding Scale -) 1 vial SQ ACHS [facility] PRN Reason: Protocol Last Admin: 04/27/17 16:17 Dose: Not Given Ketorolac Tromethamine (Toradol Injection -) 15 mg IVPUSH Q6H PRN PRN Reason: PAIN Stop: 04/28/17 22:37 - Objective Vital Signs: Vital Signs Temperature 97.5 F L 04/27/17 15:36 Pulse Rate 63 04/27/17 15:36 Respiratory Rate 20 04/27/17 15:36 Blood Pressure 200/89 04/27/17 15:36 O2 Sat by Pulse Oximetry (%) 100 04/27/17 09:00 Labs: CBC, BMP 04/26/17 12:40 04/26/17 12:40 Problem List - Problems (1) Acute diverticulitis Code(s): K57.92 - DVTRCLI OF INTEST, PART UNSP, W/O PERF OR ABSCESS W/O BLEED (2) Perforation bowel Code(s): K63.1 - PERFORATION OF INTESTINE (NONTRAUMATIC) (3) Diabetes Code(s): E11.9 - TYPE 2 DIABETES MELLITUS WITHOUT COMPLICATIONS (4) Hypertension Code(s): I10 - ESSENTIAL (PRIMARY) HYPERTENSION (5) Intractable back pain Code(s): M54.9 - DORSALGIA, UNSPECIFIED Assessment/Plan Patient is afebrile, Abdomen is soft , not tender. CT scan shows improving sigmoid diverticulitis, no free air. No abscess. resume clear liquids. Improving: sigmoid diverticulitis, Continue antibiotics.
--- NOTE | 2017-04-27 19:36 | PN ---
Progress Note, Physician History of Present Illness: No new complaints BP elevated - Current Medication List Current Medications: Active Medications Amlodipine Besylate (Norvasc -) 5 mg PO DAILY [facility] Last Admin: 04/27/17 14:54 Dose: 5 mg Heparin Sodium (Porcine) (Heparin -) 5,000 unit SQ BID [facility] Last Admin: 04/27/17 09:42 Dose: 5,000 unit Levofloxacin (Levaquin 500 Mg Premixed Ivpb -) 100 mls @ 100 mls/hr IVPB DAILY@ 2200 [facility] Last Admin: 04/26/17 21:22 Dose: 100 mls/hr Sodium Chloride (1/2 Normal Saline) 1,000 mls @ 75 mls/hr IV ASDIR [facility] Last Admin: 04/27/17 05:57 Dose: 75 mls/hr Piperacillin Sod/Tazobactam Sod (Zosyn 3.375gm Ivpb (Pre-Docked)) 50 mls @ 100 mls/hr IVPB Q8H-IV [facility] PRN Reason: Protocol Last Admin: 04/27/17 17:27 Dose: 100 mls/hr Insulin Aspart (Novolog Vial Sliding Scale -) 1 vial SQ ACHS [facility] PRN Reason: Protocol Last Admin: 04/27/17 16:17 Dose: Not Given Ketorolac Tromethamine (Toradol Injection -) 15 mg IVPUSH Q6H PRN PRN Reason: PAIN Stop: 04/28/17 22:37 - Objective Vital Signs: Vital Signs Temperature 98.8 F 04/27/17 19:00 Pulse Rate 70 04/27/17 19:00 Respiratory Rate 20 04/27/17 19:00 Blood Pressure 156/79 04/27/17 19:00 O2 Sat by Pulse Oximetry (%) 100 04/27/17 09:00 Constitutional: Yes: No Distress HENT: Yes: WNL Neck: Yes: WNL, Supple Cardiovascular: Yes: WNL, Regular Rate and Rhythm Respiratory: Yes: WNL, Regular, CTA Bilaterally Gastrointestinal: Yes: WNL, Normal Bowel Sounds, Soft Labs: CBC, BMP 04/26/17 12:40 04/26/17 12:40 Problem List - Problems (1) Acute diverticulitis Assessment/Plan: Acute diverticulitis w/ microperforation Cont IV antibxs WBC is normal Repeat ct scan showed improvement of diverticulitis As per surgery advance diet to clear liquids Code(s): K57.92 - DVTRCLI OF INTEST, PART UNSP, W/O PERF OR ABSCESS W/O BLEED (2) Diabetes Assessment/Plan: Cont sliding scale w/ novolog Code(s): E11.9 - TYPE 2 DIABETES MELLITUS WITHOUT COMPLICATIONS (3) Hypertension Assessment/Plan: Restart norvasc Monitor BP Code(s): I10 - ESSENTIAL (PRIMARY) HYPERTENSION
[2017-04-27] MEDS: LEVOFLOXACIN 500 MG IVPB 100 ML IVPB SCH (22:14)
[2017-04-28] MEDS: SODIUM CHLORIDE 0.45% 1,000 ML IV SCH ×3 (01:56→22:45)
[2017-04-28] MEDS: PIPERACILLIN/TAZOB 3.375 GM 50 ML IVPB SCH ×3 (01:56→17:26)
[2017-04-28] MEDS: INSULIN SLIDING SCALE (NOVOLOG) 1 VIAL SQ SCH ×4 (06:05→21:46)
[2017-04-28] MEDS: amLODIPine BESYLATE 5 MG TABLET (FP) PO SCH (09:37)
[2017-04-28] MEDS: HEPARIN NA (PORCINE) 5,000 UNITS/ML 1ML VIAL SQ SCH ×2 (09:37→21:44)
--- NOTE | 2017-04-28 12:07 | PN ---
Progress Note, Physician History of Present Illness: doing well no issues tolerating diet repast ct scan noted - Current Medication List Current Medications: Active Medications Amlodipine Besylate (Norvasc -) 5 mg PO DAILY [facility] Last Admin: 04/28/17 09:37 Dose: 5 mg Heparin Sodium (Porcine) (Heparin -) 5,000 unit SQ BID [facility] Last Admin: 04/28/17 09:37 Dose: 5,000 unit Levofloxacin (Levaquin 500 Mg Premixed Ivpb -) 100 mls @ 100 mls/hr IVPB DAILY@ 2200 [facility] Last Admin: 04/27/17 22:14 Dose: 100 mls/hr Sodium Chloride (1/2 Normal Saline) 1,000 mls @ 75 mls/hr IV ASDIR [facility] Last Admin: 04/28/17 01:56 Dose: 75 mls/hr Piperacillin Sod/Tazobactam Sod (Zosyn 3.375gm Ivpb (Pre-Docked)) 50 mls @ 100 mls/hr IVPB Q8H-IV [facility] PRN Reason: Protocol Last Admin: 04/28/17 09:37 Dose: 100 mls/hr Insulin Aspart (Novolog Vial Sliding Scale -) 1 vial SQ ACHS [facility] PRN Reason: Protocol Last Admin: 04/28/17 11:54 Dose: 4 units Ketorolac Tromethamine (Toradol Injection -) 15 mg IVPUSH Q6H PRN PRN Reason: PAIN Stop: 04/28/17 22:37 - Objective Vital Signs: Vital Signs Temperature 97.9 F 04/28/17 09:00 Pulse Rate 72 04/28/17 09:00 Respiratory Rate 18 04/28/17 09:00 Blood Pressure 157/80 04/28/17 09:00 O2 Sat by Pulse Oximetry (%) 97 04/28/17 10:00 Constitutional: Yes: No Distress, Calm Cardiovascular: Yes: Regular Rate and Rhythm Respiratory: Yes: Regular, CTA Bilaterally Gastrointestinal: Yes: Normal Bowel Sounds, Soft Musculoskeletal: Yes: WNL Extremities: Yes: WNL Neurological: Yes: Alert, Oriented Psychiatric: Yes: Alert Labs: CBC, BMP 04/26/17 12:40 04/26/17 12:40 Assessment/Plan Problem List - Problems (1) Acute diverticulitis Code(s): K57.92 - DVTRCLI OF INTEST, PART UNSP, W/O PERF OR ABSCESS W/O BLEED (2) Perforation bowel Code(s): K63.1 - PERFORATION OF INTESTINE (NONTRAUMATIC) (3) Diabetes Code(s): E11.9 - TYPE 2 DIABETES MELLITUS WITHOUT COMPLICATIONS (4) Hypertension Code(s): I10 - ESSENTIAL (PRIMARY) HYPERTENSION (5) Intractable back pain Code(s): M54.9 - DORSALGIA, UNSPECIFIED patients ct scan shows micro perf plan ct scan result noted can stop abx once patient is eating diet
--- NOTE | 2017-04-28 12:24 | PN ---
Progress Note, Physician - Current Medication List Current Medications: Active Medications Amlodipine Besylate (Norvasc -) 5 mg PO DAILY [facility] Last Admin: 04/28/17 09:37 Dose: 5 mg Heparin Sodium (Porcine) (Heparin -) 5,000 unit SQ BID [facility] Last Admin: 04/28/17 09:37 Dose: 5,000 unit Levofloxacin (Levaquin 500 Mg Premixed Ivpb -) 100 mls @ 100 mls/hr IVPB DAILY@ 2200 [facility] Last Admin: 04/27/17 22:14 Dose: 100 mls/hr Sodium Chloride (1/2 Normal Saline) 1,000 mls @ 75 mls/hr IV ASDIR [facility] Last Admin: 04/28/17 01:56 Dose: 75 mls/hr Piperacillin Sod/Tazobactam Sod (Zosyn 3.375gm Ivpb (Pre-Docked)) 50 mls @ 100 mls/hr IVPB Q8H-IV [facility] PRN Reason: Protocol Last Admin: 04/28/17 09:37 Dose: 100 mls/hr Insulin Aspart (Novolog Vial Sliding Scale -) 1 vial SQ ACHS [facility] PRN Reason: Protocol Last Admin: 04/28/17 11:54 Dose: 4 units Ketorolac Tromethamine (Toradol Injection -) 15 mg IVPUSH Q6H PRN PRN Reason: PAIN Stop: 04/28/17 22:37 Latanoprost (Xalatan 0.005% Eye Drops -) 1 drop OU HS [facility] Timolol Maleate (Timoptic 0.5%) 1 drop OU BID [facility] - Objective Vital Signs: Vital Signs Temperature 97.9 F 04/28/17 09:00 Pulse Rate 72 04/28/17 09:00 Respiratory Rate 18 04/28/17 09:00 Blood Pressure 157/80 04/28/17 09:00 O2 Sat by Pulse Oximetry (%) 97 04/28/17 10:00 Labs: CBC, BMP 04/26/17 12:40 04/26/17 12:40 Problem List - Problems (1) Acute diverticulitis Code(s): K57.92 - DVTRCLI OF INTEST, PART UNSP, W/O PERF OR ABSCESS W/O BLEED (2) Perforation bowel Code(s): K63.1 - PERFORATION OF INTESTINE (NONTRAUMATIC) (3) Diabetes Code(s): E11.9 - TYPE 2 DIABETES MELLITUS WITHOUT COMPLICATIONS (4) Hypertension Code(s): I10 - ESSENTIAL (PRIMARY) HYPERTENSION (5) Intractable back pain Code(s): M54.9 - DORSALGIA, UNSPECIFIED Assessment/Plan Surgery: Patient has had bowel movement, No abdominal pain, has tolerated liquids. Progress diet, discharge planning with antibiotics, when regular diet is tolerated.
[2017-04-28] MEDS ORDERED: INSULIN (NOVOLOG) ASPART 100 UNITS/ML 10ML VIAL ONE (16:58)
[2017-04-28] MEDS ORDERED: PT OWN MED DRAWER 7, Y5N ONE (21:09)
[2017-04-28] MEDS: TIMOLOL 0.5% OPHTHALMIC SOL 5 ML BOTTLE OU SCH (21:44)
[2017-04-28] MEDS: LEVOFLOXACIN 500 MG IVPB 100 ML IVPB SCH (21:46)
[2017-04-28] MEDS ORDERED: LATANOPROST 0.005% OPHTH SOLN 2.5ML BOTTLE OU SCH (22:00)
--- NOTE | 2017-04-28 23:52 | PN ---
Progress Note, Physician - Current Medication List Current Medications: Active Medications Amlodipine Besylate (Norvasc -) 5 mg PO DAILY [facility] Last Admin: 04/28/17 09:37 Dose: 5 mg Heparin Sodium (Porcine) (Heparin -) 5,000 unit SQ BID [facility] Last Admin: 04/28/17 21:44 Dose: 5,000 unit Levofloxacin (Levaquin 500 Mg Premixed Ivpb -) 100 mls @ 100 mls/hr IVPB DAILY@ 2200 [facility] Last Admin: 04/28/17 21:46 Dose: 100 mls/hr Sodium Chloride (1/2 Normal Saline) 1,000 mls @ 75 mls/hr IV ASDIR [facility] Last Admin: 04/28/17 19:35 Dose: 75 mls/hr Piperacillin Sod/Tazobactam Sod (Zosyn 3.375gm Ivpb (Pre-Docked)) 50 mls @ 100 mls/hr IVPB Q8H-IV [facility] PRN Reason: Protocol Last Admin: 04/28/17 17:26 Dose: 100 mls/hr Insulin Aspart (Novolog Vial Sliding Scale -) 1 vial SQ ACHS [facility] PRN Reason: Protocol Last Admin: 04/28/17 21:46 Dose: Not Given Latanoprost (Xalatan 0.005% Eye Drops -) 1 drop OU HS [facility] Last Admin: 04/28/17 21:45 Dose: 1 units Timolol Maleate (Timoptic 0.5%) 1 drop OU BID [facility] Last Admin: 04/28/17 21:44 Dose: 1 units - Objective Vital Signs: Vital Signs Temperature 98 F 04/28/17 18:30 Pulse Rate 67 04/28/17 18:30 Respiratory Rate 18 04/28/17 18:30 Blood Pressure 151/77 04/28/17 18:30 O2 Sat by Pulse Oximetry (%) 97 04/28/17 10:00 Labs: CBC, BMP 04/26/17 12:40 04/26/17 12:40 Problem List - Problems (1) Acute diverticulitis Code(s): K57.92 - DVTRCLI OF INTEST, PART UNSP, W/O PERF OR ABSCESS W/O BLEED (2) Diabetes Code(s): E11.9 - TYPE 2 DIABETES MELLITUS WITHOUT COMPLICATIONS (3) Hypertension Code(s): I10 - ESSENTIAL (PRIMARY) HYPERTENSION
[2017-04-29] MEDS: PIPERACILLIN/TAZOB 3.375 GM 50 ML IVPB SCH ×2 (02:05→10:22)
[2017-04-29] MEDS ORDERED: INSULIN (NOVOLOG) ASPART 100 UNITS/ML 10ML VIAL ONE (06:38)
[2017-04-29] MEDS: INSULIN SLIDING SCALE (NOVOLOG) 1 VIAL SQ SCH ×2 (06:39→12:00)
[2017-04-29 09:26] VITALS: BP 150/75; PULSE 75; TEMP 98
[2017-04-29] MEDS ORDERED: PT OWN MED DRAWER 7, Y5N ONE (10:18)
[2017-04-29] MEDS: amLODIPine BESYLATE 5 MG TABLET (FP) PO SCH (10:22)
[2017-04-29] MEDS: HEPARIN NA (PORCINE) 5,000 UNITS/ML 1ML VIAL SQ SCH (10:22)
[2017-04-29] MEDS: TIMOLOL 0.5% OPHTHALMIC SOL 5 ML BOTTLE OU SCH (10:22)
== END 2017-04-29 14:53 | disposition home or self-care (01) | DRG 392 ==
LOC: JER 08:13 → JERBED 12:34 → J5S 16:19
PROVIDERS: ADMIT Internal Medicine; ATTEND Internal Medicine
DX: K57.20 Diverticulitis of large intestine with perforation and abscess without bleeding (principal); E11.9 Type 2 diabetes mellitus without complications; I10 Essential (primary) hypertension; M54.9 Dorsalgia, unspecified
CPT/HCPCS: 36415; 74020-TC; 74177-TC; 80053; 81003; 85025; 93005; 93010; 99284-25; J1644; Q9967

== ENCOUNTER 2017-05-02 18:22 | Inpatient (IN) | payer MEDICARE ==
[2017-05-02 19:22] VITALS: BMI 28.3
--- NOTE | 2017-05-02 19:47 | PDOC ---
History of Present Illness - General History Source: Patient Exam Limitations: No Limitations - History of Present Illness Initial Comments: 05/02/17 20:08 The patient is a 87 year old female, accompanied by family member with a significant past medical history of diabetes mellitus, hypertension, diverticulitis, and TIA, who presents to the emergency department s/p syncopal episode earlier this evening. As per patients , the patient was sitting at the kitchen table and was fully alert. After he left and returned he noted the patient was slumped over on the table and difficult to arouse. reports the patient passed out for 15 minutes. Patient only recalls that she felt sleepy. She denies any head trauma or falling on the floor. Family member reports calling EMS, and when EMS arrived on scene the patient was given a glucose tablet, and patient perked up. Family member reports a similar episode 6 months ago and 1 year ago, however, this was the longest her syncopal episode has been. Per records patient was recently discharged on 04/29/17 for diverticulitis, with no surgical interventions. Patient denies any nausea, vomiting, diarrhea, or constipation. She denies any dysuria, hematuria, frequency, or urgency. She denies any chest pain, shortness of breath, diaphoresis, or palpitations. She denies any changes in vision, fever, chills, cough, headache, or dizziness. She denies any recent travel or sick contacts. Allergies: None reported Past Surgical History: Cholecystectomy Social History: Non smoker. No ETOH or drug use. PCP: Dr. Coronel <Stephon Leos - Last Filed: 05/02/17 22:51> <Filippo Leblanc - Last Filed: 05/02/17 23:00> - General Chief Complaint: Blood Sugar Problem Stated Complaint: DIABETIC EMERGENCY Time Seen by Provider: 05/02/17 18:54 Past History <Stephon Leos - Last Filed: 05/02/17 22:51> - Past Medical History Anemia: No Asthma: No Cancer: No Cardiac Disorders: No CVA: No COPD: No CHF: No Dementia: No Diabetes: Yes GI Disorders: No Disorders: No HTN: Yes Hypercholesterolemia: No Liver Disease: Yes Suicide Attempt (Hx): No Seizures: No Thyroid Disease: No - Surgical History Cholecystectomy: Yes - Psycho/Social/Smoking Cessation Hx Anxiety: No Suicidal Ideation: No Smoking Status: No Smoking History: Never smoked Number of Cigarettes Smoked Daily: 0 Information on smoking cessation initiated: No Hx Alcohol Use: No Drug/Substance Use Hx: No Substance Use Type: None Hx Substance Use Treatment: No <Fiilppo Leblanc - Last Filed: 05/02/17 23:00> - Past Medical History Allergies/Adverse Reactions: Allergies Allergy/AdvReac Type Severity Reaction Status Date / Time No Known Allergies Allergy Verified 05/02/17 18:40 Home Medications: Ambulatory Orders Aspirin [ASA -] 81 mg PO DAILY #0 tab.chew 02/22/15 Polyethylene Glycol 3350 [Miralax 119 gm Btl -] 17 gm PO BID #0 bottle 02/22/15 Docusate Sodium [Colace] 100 mg PO BID PRN 04/09/15 Metformin HCl [Glucophage] 1,000 mg PO BID 04/09/15 Omeprazole [Prilosec] 20 mg PO Q2D 04/09/15 Prednisone [Deltasone -] 1 mg PO DAILY 04/09/15 Atenolol [Tenormin -] 25 mg PO DAILY 04/23/17 Hydralazine HCl [Apresoline -] 10 mg PO DAILY 04/23/17 Latanoprost 0.005% Eye Drops [Xalatan 0.005% Eye Drops -] 1 drop OU HS 04/28/17 Timolol 0.5% [Timoptic 0.5%] 1 drop OU BID 04/28/17 Levofloxacin [Levaquin] 500 mg PO DAILY #7 tablet 04/29/17 Metronidazole [Flagyl -] 500 mg PO TID #21 tablet 04/29/17 Review of Systems - Review of Systems Able to Perform ROS?: Yes Comments:: 05/02/17 20:09 CONSTITUTIONAL: Yes: +sleepy. No fever, no chills, no fatigue EYES: No visual changes ENT: No ear pain, no sore throat CARDIOVASCULAR: No chest pain, no palpitations RESPIRATORY: No cough, no SOB GI: No abdominal pain, no nausea, no vomiting, no constipation, no diarrhea GENITOURINARY: No dysuria, no frequency, no hematuria MUSKULOSKELETAL: No back pain, no joint pain, no myalgias SKIN: No rash NEURO: Yes: +syncope. No headache <Leos,Giomilsy - Last Filed: 05/02/17 22:51> *Physical Exam - Vital Signs Last Vital Signs Temp Pulse Resp BP Pulse Ox 98.1 F 60 20 180/61 100 05/02/17 18:31 05/02/17 18:31 05/02/17 18:31 05/02/17 18:31 05/02/17 19:18 - Physical Exam Comments: 05/02/17 20:09 CONSTITUTIONAL: Well-appearing; well-nourished; in no apparent distress HEAD: Normocephalic; atraumatic EYES: PERRL; EOM intact ENMT: External appears normal; normal oropharynx NECK: Supple; non-tender; no cervical lymphadenopathy CARD: Normal S1, S2; no murmurs, rubs, or gallops RESP: Normal chest excursion with respiration; breath sounds clear and equal bilaterally; no wheezes, rhonchi, or rales ABD: +Mild left lower quadrant tenderness. Soft, non-distended; no palpable organomegaly, no palpable hernias EXT: 1+ pitting edema in the lower extremities bilaterally. Normal ROM in all four extremities; non-tender to palpation; distal pulses intact SKIN: Warm, dry, no rash NEURO: No focal neurological deficiencies. <Stephon Leos - Last Filed: 05/02/17 22:51> - Vital Signs Last Vital Signs Temp Pulse Resp BP Pulse Ox 98.1 F 60 20 180/61 100 05/02/17 18:31 05/02/17 18:31 05/02/17 18:31 05/02/17 18:31 05/02/17 19:18 <Filippo Leblanc - Last Filed: 05/02/17 23:00> ED Treatment Course - LABORATORY CBC & Chemistry Diagram: 05/02/17 20:19 05/02/17 20:19 - RADIOLOGY Radiograph Interpretation: 05/02/17 20:07 Vent. Rate: 60 bpm IMPRESSION: Normal sinus rhythm. Nonspecific T wave abnormality. <Stephon Leos - Last Filed: 05/02/17 22:51> - LABORATORY CBC & Chemistry Diagram: 05/02/17 20:19 05/02/17 20:19 <Filippo Leblanc - Last Filed: 05/02/17 23:00> Medical Decision Making - Medical Decision Making 05/02/17 22:29 First call placed to Dr. Lemus at 22:30. Awaiting call back. <Stephon Leos - Last Filed: 05/02/17 22:51> - Medical Decision Making 05/02/17 22:57 Patient is an 87-year-old female with history of hypertension and diabetes who is currently being treated for an, located diverticulitis presents to the ER after a witnessed syncopal episode lasting approximately 15 minutes, without preceding symptoms, without associated seizure-like activity or prolonged postictal period. In the ER, patient is awake and alert, nonfocal neurologically , mildly hypertensive; EKG shows no evidence of acute ischemia, flat T waves in noted in the inferior lead which appear unchanged from previous. CT of head shows evidence of chronic ischemic white matter disease but no acute intracranial pathology is noted. CBC is unchanged. CMP reveals moderate hypomagnesemia. Patient's currently receiving 2 g of magnesium sulfate. Chest x- ray reveals cardiomegaly without evidence of pulmonary edema only admit he is tied mediastinum. I do not suspect ACS or PE at this time. I discussed the case with Dr. Lemus of cardiology covering for Dr. King. Patient will be placed on telemetry for arrhythmia monitoring. <Filippo Leblanc - Last Filed: 05/02/17 23:00> *DC/Admit/Observation/Transfer - Attestations Scribe Attestion: 05/02/17 20:08 Documentation prepared by Stephon Leos, acting as medical billing service for Filippo Leblanc MD. <Stephon Leos - Last Filed: 05/02/17 22:51> - Discharge Dispostion Admit: Yes - Attestations Physician Attestion: 05/02/17 22:57 The documentation was prepared by the scribe under my direct supervision. I have reviewed the documentation which correctly represents the findings, medical decision-making and critical action taken by me. <Filippo Leblanc - Last Filed: 05/02/17 23:00> Diagnosis at time of Disposition: Syncope Qualifiers: Syncope type: unspecified Qualified Code(s): R55 - Syncope and collapse - Discharge Dispostion Condition at time of disposition: Fair - Referrals Referrals: Ignacio Coronel [Non Staff, Medical] -
[2017-05-02 20:27] LABS: BASOPHIL 0.6 % (0-2.0); EOSINOPHIL 1.9 % (0-4.5); MCH 29.3 pg (25.7-33.7); MCHC 32.4 g/dl (32.0-36.0); MEAN CELL VOLUME 90.7 fl (80-96); MEAN PLT VOLUME 9.2 fl (7.5-11.1); NEUTROPHILS 61.7 % (42.8-82.8); PLATELET COUNT 216 K/MM3 (134-434); RDW 14.9 % (11.6-15.6); WHITE BLOOD COUNT 6.1 K/mm3 (4.0-10.0)
[2017-05-02 20:39] LABS: INR 1.03 (0.82-1.09); PROTHROMBIN TIME (PATIENT) 11.3 SEC (9.98-11.88)
[2017-05-02 20:49] LABS: ALBUMIN 3.2 g/dl (3.4-5.0); ANION GAP 7 (8-16); BILIRUBIN,TOTAL 0.3 mg/dL (0.2-1.0); CALCIUM 9.9 mg/dL (8.5-10.1); CO2 31 mmol/L (21-32); CREATININE 1.2 mg/dL (0.55-1.02); GLUCOSE,RANDOM 133 mg/dL (74-106); MAGNESIUM 1.6 mg/dL (1.8-2.4); SGOT/AST 16 U/L (15-37); SGPT/ALT 19 U/L (12-78)
[2017-05-02 20:51] LABS: ALK PHOS 58 U/L (45-117); TOT PROT 6.1 g/dl (6.4-8.2)
[2017-05-02] MEDS ORDERED: MAGNESIUM SULF 50% (8.12 MEQ/2 ML-1 GM VIAL) IVPB ONE (21:59)
[2017-05-02] MEDS ORDERED: SODIUM CHLORIDE 500 ML IV STA (22:00)
[2017-05-02] MEDS ORDERED: MAGNESIUM SULF 50% (8.12 MEQ/2 ML-1 GM VIAL) ONE (22:03)
[2017-05-02 23:19] LABS: TROPONIN I < 0.02 ng/ml (0.00-0.05)
--- NOTE | 2017-05-03 | HP ---
CHIEF COMPLAINT: " i passed out" PCP: Dr. Coronel HISTORY OF PRESENT ILLNESS: This is an 87 yo F with PMH of DM, HTN, diverticulitis, and TIA, who presents s/ p witnessed syncopal episode earlier this evening. As per , the patient was sitting on a chair for 30 min, fully alert, when he returned to room he saw her slujmped over on chair and was unable to wake her up for 15 min until ems came and gave her 2 sublingual glucose pills, at which time she gradually returned to baseline mental status; BG was not measured but on arrival to ed its 160. There was no fall or trauma. Patient remembers feeling sleepy hot and sweaty before she syncopized and denies n/v, chest pain, sob, palpitations, cough, h/a, weakness, numbness. She reports 2 prior similar incidents one 2 mo ago and one 1 yr ago. She does not use insulin. Patient was recently discharged on 04/29/17 after treatment for diverticulitis, w/o surgical intervention. Patient denies diarrhea, constipation, dysuria, hematuria, frequency, urgency, f /c. Case discussed with Dr Lemus in ED ER course was notable for: (1)labs,ekg ( no acs, nonspecific lateral t inversion, no change from pior) (2)head ct w/o contrast, cxr cardiomegaly, increased pulm markings but may be duet o difference in image quality (3) 500 cc NS, mag Recent Travel: denies PAST MEDICAL HISTORY: as above PAST SURGICAL HISTORY: Cholecystectomy Social History: Smoking: denies Alcohol:denies Drugs: denies Family History: noncontributory Allergies No Known Allergies Allergy (Verified 05/02/17 18:40) HOME MEDICATIONS: Home Medications Medication Instructions Recorded Aspirin [ASA -] 81 mg PO DAILY #0 tab.chew 02/22/15 Polyethylene Glycol 3350 [Miralax 17 gm PO BID #0 bottle 02/22/15 119 gm Btl -] Docusate Sodium [Colace] 100 mg PO BID PRN 04/09/15 Metformin HCl [Glucophage] 1,000 mg PO BID 04/09/15 Omeprazole [Prilosec] 20 mg PO Q2D 04/09/15 Prednisone [Deltasone -] 1 mg PO DAILY 04/09/15 Atenolol [Tenormin -] 25 mg PO DAILY 04/23/17 Hydralazine HCl [Apresoline -] 10 mg PO DAILY 04/23/17 Latanoprost 0.005% Eye Drops 1 drop OU HS 04/28/17 [Xalatan 0.005% Eye Drops -] Timolol 0.5% [Timoptic 0.5%] 1 drop OU BID 04/28/17 Levofloxacin [Levaquin] 500 mg PO DAILY #7 tablet 04/29/17 Metronidazole [Flagyl -] 500 mg PO TID #21 tablet 04/29/17 REVIEW OF SYSTEMS CONSTITUTIONAL: Absent: fever, chills, weight change HEENT: Absent: rhinorrhea, nasal congestion, throat pain, difficulty swallowing CARDIOVASCULAR: Absent: chest pain, syncope, palpitations, irregular heart rate, lightheadedness , peripheral edema RESPIRATORY: Absent: cough, shortness of breath, hemoptysis GASTROINTESTINAL: Absent: abdominal pain, abdominal distension, nausea, vomiting, diarrhea, constipation, melena, hematochezia GENITOURINARY: Absent: dysuria, frequency, urgency, flank pain MUSCULOSKELETAL: Absent: back pain, neck pain SKIN: Absent: rash, itching, pallor HEMATOLOGIC/IMMUNOLOGIC: Absent: easy bleeding, easy bruising ENDOCRINE: Absent: unexplained weight gain, unexplained weight loss NEUROLOGIC: Absent: headache, focal weakness or paresthesias, dizziness, bladder or bowel incontinence PSYCHIATRIC: Absent: anxiety, depression PHYSICAL EXAMINATION Vital Signs - 24 hr 05/02/17 05/02/17 05/02/17 18:31 19:18 23:40 Temperature 98.1 F 98 F Pulse Rate 60 Pulse Rate [ 64 Left] Respiratory 20 18 Rate Blood Pressure 180/61 Blood Pressure 170/64 [Left Arm] O2 Sat by Pulse 100 100 100 Oximetry (%) GENERAL: Awake, alert, and fully oriented, in no acute distress. HEAD: Normal with no signs of trauma. EYES: Pupils equal, round and reactive to light, extraocular movements intact, sclera anicteric, conjunctiva clear. No lid lag. EARS, NOSE, THROAT: Moist mucous membranes. NECK: supple without JVD, no hepatojugular reflex LUNGS: Breath sounds equal, clear to auscultation bilaterally. HEART: Regular rate and rhythm, normal S1 and S2 grade 3 systolic ej murmur best heard in aortic area ABDOMEN: Soft, slightly tender llq, luq, not distended, normoactive bowel sounds , no guarding, no rebound, no masses. No hepatomegaly or splenomegaly. MUSCULOSKELETAL: No CVA tenderness. UPPER EXTREMITIES: 2+ pulses, warm, well-perfused. No cyanosis. No clubbing. No peripheral edema. LOWER EXTREMITIES: warm, well-perfused. No calf tenderness. No peripheral edema. NEUROLOGICAL: Cranial nerves II-XII intact. Normal speech. Normal gait., strenght 4+/5 in all extremities, sensation intact PSYCHIATRIC: Cooperative. Good eye contact. Appropriate mood and affect. SKIN: Warm, dry Laboratory Tests 04/26/17 05/02/17 05/02/17 12:40 20:10 20:19 Sodium 144 Potassium 4.2 Chloride 106 Carbon Dioxide 31 D Anion Gap 7 L BUN 10 16 D Creatinine 0.9 1.2 H D Random Glucose 133 H D Magnesium 1.6 L Troponin I < 0.02 Laboratory Results - last 24 hr 05/02/17 05/02/17 05/02/17 20:10 20:19 20:19 WBC 6.1 RBC 3.58 L Hgb 10.5 L Hct 32.4 MCV 90.7 MCH 29.3 MCHC 32.4 RDW 14.9 Plt Count 216 MPV 9.2 D Neutrophils % 61.7 Lymphocytes % 24.7 Monocytes % 11.1 H Eosinophils % 1.9 D Basophils % 0.6 INR 1.03 Sodium Potassium Chloride Carbon Dioxide Anion Gap BUN Creatinine Creat Clearance w eGFR Random Glucose Calcium Magnesium Total Bilirubin AST ALT Alkaline Phosphatase Creatine Kinase 110 Troponin I < 0.02 Total Protein Albumin 05/02/17 20:19 WBC RBC Hgb Hct MCV MCH MCHC RDW Plt Count MPV Neutrophils % Lymphocytes % Monocytes % Eosinophils % Basophils % INR Sodium 144 Potassium 4.2 Chloride 106 Carbon Dioxide 31 D Anion Gap 7 L BUN 16 D Creatinine 1.2 H D Creat Clearance w eGFR 42.50 Random Glucose 133 H D Calcium 9.9 Magnesium 1.6 L Total Bilirubin 0.3 D AST 16 D ALT 19 D Alkaline Phosphatase 58 Creatine Kinase Troponin I Total Protein 6.1 L Albumin 3.2 L ASSESSMENT/PLAN: This is an 87 yo F with PMH of DM, HTN, diverticulitis, and TIA, who presents s/ p witnessed syncopal episode earlier this evening. witnessed Syncopal episode in setting of prior TIA -ekg unremarkable for acs -cxr cardiomegaly -CT head negative for acute pathology; no focal neuro deficits -most likley orthostatic, r/o arrythmia vs associated with possibe AV stenisis ( systolic ej murmur in R upper sternal boarder). low suspicion for hypoglycemia on metformin -trop negative x1, will repeat -s/p NS 500cc -labs show YARI and hypomagnesemia -tele monitoring -cardio consult -orthostatic vital signs -TTE YARI -bun/creat 16/1.2, creat baseline 0.9 -may be due to abx or colitis -trend creat DM -hold metformin, start gentle sliding scale ACHS, -BGM ACHS HTN -resume hydralazine, atenolol in the AM if no neuro deficits are seen recent colitis -continue flagyl, levaqin FEN NS @50 replete mag diabetic na restricted diet ppi, scd Dispo: obs tele Problem List - Problem (1) Syncope Code(s): R55 - SYNCOPE AND COLLAPSE Qualifiers: Syncope type: unspecified Qualified Code(s): R55 - Syncope and collapse (2) Diabetes Code(s): E11.9 - TYPE 2 DIABETES MELLITUS WITHOUT COMPLICATIONS (3) Hypertension Code(s): I10 - ESSENTIAL (PRIMARY) HYPERTENSION Visit type - Emergency Visit Emergency Visit: Yes ED Registration Date: 05/03/17 Care time: The patient presented to the Emergency Department on the above date and was hospitalized for further evaluation of their emergent condition. - New Patient This patient is new to me today: Yes Date on this admission: 05/03/17 - Critical Care Critical Care patient: No
[2017-05-03] MEDS ORDERED: SODIUM CHLORIDE 1,000 ML IV SCH (01:00)
[2017-05-03 02:59] LABS: URINE APPEARANCE CLEAR; URINE BILIRUBIN NEGATIVE (NEGATIVE); URINE BLOOD NEGATIVE (NEGATIVE); URINE COLOR STRAW; URINE GLUCOSE (UA) NEGATIVE (NEGATIVE); URINE KETONE NEGATIVE (NEGATIVE); URINE LEUK ESTERASE NEGATIVE (NEGATIVE); URINE NITRITE NEGATIVE (NEGATIVE); URINE PROTEIN NEGATIVE (NEGATIVE); URINE UROBILINOGEN NEGATIVE E.U./dl (0.2-1.0)
[2017-05-03 03:44] LABS: TROPONIN I < 0.02 ng/ml (0.00-0.05)
--- NOTE | 2017-05-03 05:16 | PN ---
Teaching Attending Note Name of Resident: Fadia Salcedo ATTENDING PHYSICIAN STATEMENT I saw and evaluated the patient. I reviewed chart, available date, and imaging I reviewed the resident's note and discussed the case with the resident. I agree with the resident's findings and plan as documented. SUBJECTIVE: 87 yo F with PMH of DM, HTN, diverticulitis, and TIA s/p witnessed syncopal episode with associated sensation of feeling "hot and sweaty" 05/02 in the late afternoon which lasted uncertain period of time, not associated with seizing. There was no chest pain or palpitations. EMS called, gave 2 glucose tabs, patient slowly regained consciousness. No glucose reading taken at home, however normal in the ER. Patient only takes metformin for her diabetes. Recently discharged on 04/29/17 after treatment for diverticulitis. Patient denied any focal dizziness , weakness, or new problems with walking. ROS- negative except for above OBJECTIVE: Last Vital Signs Temp Pulse Resp BP Pulse Ox 98.4 F 63 18 180/86 100 05/03/17 05:19 05/03/17 05:19 05/03/17 05:19 05/03/17 05:05/03/17 00:59 General- pleasant, NAD, no shortness of breath HEENT - atraumatic Neck supple CV- s1+s2+ RRR Chest - CTA b/l Abdomen RUQ scar, NT , no masses Ext no swelling or clubbing Neuro- no focal weakness Laboratory Results - last 24 hr 05/02/17 05/02/17 05/02/17 18:31 20:10 20:19 WBC 6.1 RBC 3.58 L Hgb 10.5 L Hct 32.4 MCV 90.7 MCH 29.3 MCHC 32.4 RDW 14.9 Plt Count 216 MPV 9.2 D Neutrophils % 61.7 Lymphocytes % 24.7 Monocytes % 11.1 H Eosinophils % 1.9 D Basophils % 0.6 INR Sodium Potassium Chloride Carbon Dioxide Anion Gap BUN Creatinine Creat Clearance w eGFR POC Glucometer [id number] Random Glucose Calcium Magnesium Total Bilirubin AST ALT Alkaline Phosphatase Creatine Kinase 110 Troponin I < 0.02 Total Protein Albumin Urine Color Urine Appearance Urine pH Urine Protein Urine Glucose (UA) Urine Ketones Urine Blood Urine Nitrite Urine Bilirubin Urine Urobilinogen Ur Leukocyte Esterase 05/02/17 05/02/17 05/03/17 20:19 20:19 02:15 WBC RBC Hgb Hct MCV MCH MCHC RDW Plt Count MPV Neutrophils % Lymphocytes % Monocytes % Eosinophils % Basophils % INR 1.03 Sodium 144 Potassium 4.2 Chloride 106 Carbon Dioxide 31 D Anion Gap 7 L BUN 16 D Creatinine 1.2 H D Creat Clearance w eGFR 42.50 POC Glucometer Random Glucose 133 H D Calcium 9.9 Magnesium 1.6 L Total Bilirubin 0.3 D AST 16 D ALT 19 D Alkaline Phosphatase 58 Creatine Kinase 94 Troponin I < 0.02 Total Protein 6.1 L Albumin 3.2 L Urine Color Urine Appearance Urine pH Urine Protein Urine Glucose (UA) Urine Ketones Urine Blood Urine Nitrite Urine Bilirubin Urine Urobilinogen Ur Leukocyte Esterase 05/03/17 05/03/17 02:25 06:23 WBC RBC Hgb Hct MCV MCH MCHC RDW Plt Count MPV Neutrophils % Lymphocytes % Monocytes % Eosinophils % Basophils % INR Sodium Potassium Chloride Carbon Dioxide Anion Gap BUN Creatinine Creat Clearance w eGFR POC Glucometer 150 Random Glucose Calcium Magnesium Total Bilirubin AST ALT Alkaline Phosphatase Creatine Kinase Troponin I Total Protein Albumin Urine Color Straw Urine Appearance Clear Urine pH 6.0 Urine Protein Negative Urine Glucose (UA) Negative Urine Ketones Negative Urine Blood Negative Urine Nitrite Negative Urine Bilirubin Negative Urine Urobilinogen Negative Ur Leukocyte Esterase Negative EKG- normal sinus rhythm, normal rate, left axis deviation, no acute ST-T changes, old t wave inversions in lateral leads CXR- cardiomegally Head CT- no acute bleed or infarct ASSESSMENT AND PLAN: #Witnessed syncope episode likely vasovagal vs orthostatic hypotension given history of feeling lightheaded and warm. No EKG changes, and lack of palpitations goes against cardiac cause. Unlikely from hypoglycemia as patient only takes metformin which does not cause hypoglycemia. FS wnl in ER. No trauma to head and head CT neg for acute findings. Troponin neg. Should r/o aortic stenosis -admit to observation/tele -repeat EKG -transthoracic echo -check for orthostatic hypotension -fall precautions -q4 H fingerstick monitoring #YARI -stage 1 -UA -urine lytes -renal U/S -avoid nephrotoxic medications -gentle IV fluid hydration #hypomagnesemia -replace magnesium #Diverticulitis -resolving -continue levofloxacin and metronidazole -continue home medications for chronic medical problems #DVT ppx - low risk -SCDs Diet- low Na, diabetic diet
[2017-05-03] MEDS ORDERED: LEVOFLOXACIN 500 MG TABLET (FP) PO ONE (06:00)
[2017-05-03] MEDS: INSULIN SLIDING SCALE (NOVOLOG) 1 VIAL SQ SCH ×4 (06:25→22:24)
[2017-05-03] MEDS: metroNIDAZOLE 500 MG TABLET PO SCH ×3 (06:41→22:04)
[2017-05-03] MEDS ORDERED: hydrALAZINE HCL 10 MG TABLET PO SCH ×2 (06:45→10:00)
[2017-05-03] MEDS ORDERED: ATENOLOL 25 MG TABLET (FP) PO SCH ×2 (06:45→10:00)
[2017-05-03] MEDS: ATENOLOL 25 MG TABLET (FP) PO SCH (06:49)
--- NOTE | 2017-05-03 07:58 | CON.CARD ---
Consult Consult Specialty:: Cardiology for Rinku/Jerry Referred by:: ER Reason for Consultation:: Syncope - History of Present Illness Chief Complaint: Syncope History of Present Illness: 87 year old woman with a history of HTN, DMII, TIA, recently tx for diverticulitis admitted with a possible syncopal episode. As per report and as per pt she was in the kitchen doing dishes and other activities then felt very tired. she sat down and put her head down on the table to rest and the next thing she knew she woke up with her family there. As per report from family she was very difficult to arouse and it took approximately 15minutes to wake her up. EMS arrived and gave her glucose tablet after which she was alert. On arrival to the ER she was awake and alert. She denies any symptoms prior to the event other than feeling tired and remembers putting her head down on the table to rest. Denies any palpitations, lightheadedness, dizziness, sob, or chest pain prior to the event. She does admit to occasional mild substernal chest discomfort that lasts a minute, the last episode was approximately 1 week ago. She has had other similar episodes to this approx 6 months ago and approx 1 year ago. She was recently discharged 04/29 after being treated for diverticulitis. She was seen and examined this am in [facility]. Denies any current complaints or any symptoms since coming in to the hospital. 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 Cardio/Vascular: Yes: HTN, Hyperlipdemia Endocrine: Yes: Diabetes Mellitus - Past Surgical History Past Surgical History: Yes: Cholecystectomy, , Hysterectomy - Alcohol/Substance Use Hx Alcohol Use: No - Smoking History Smoking history: Never smoked Have you smoked in the past 12 months: No Aproximately how many cigarettes per day: 0 - Social History Usual Living Arrangement: With Child ADL: Independent History of Recent Travel: No Home Medications - Allergies Allergies/Adverse Reactions: Allergies Allergy/AdvReac Type Severity Reaction Status Date / Time No Known Allergies Allergy Verified 05/02/17 18:40 - Home Medications Home Medications: Ambulatory Orders Aspirin [ASA -] 81 mg PO DAILY #0 tab.chew 02/22/15 Polyethylene Glycol 3350 [Miralax 119 gm Btl -] 17 gm PO BID #0 bottle 02/22/15 Docusate Sodium [Colace] 100 mg PO BID PRN 04/09/15 Metformin HCl [Glucophage] 1,000 mg PO BID 04/09/15 Omeprazole [Prilosec] 20 mg PO Q2D 04/09/15 Prednisone [Deltasone -] 1 mg PO DAILY 04/09/15 Atenolol [Tenormin -] 25 mg PO DAILY 04/23/17 Hydralazine HCl [Apresoline -] 10 mg PO DAILY 04/23/17 Latanoprost 0.005% Eye Drops [Xalatan 0.005% Eye Drops -] 1 drop OU HS 04/28/17 Timolol 0.5% [Timoptic 0.5%] 1 drop OU BID 04/28/17 Levofloxacin [Levaquin] 500 mg PO DAILY #7 tablet 04/29/17 Metronidazole [Flagyl -] 500 mg PO TID #21 tablet 04/29/17 Family Disease History - Family Disease History Family Disease History: CA: Mother (lung) Review of Systems - Review of Systems Constitutional: denies: No Symptoms, Chills, Diaphoresis, Fever, Lethargy, Loss of Appetite, Malaise, Night Sweats, Unintentional Wgt. Loss, Weakness, Other Eyes: denies: No Symptoms, Blind Spots, Blurred Vision, Double Vision, Eye Pain , Floaters, Photophobia, Recent Change in Vision, Other HENT: denies: No Symptoms, Difficult Swallowing, Ear Discharge, Ear Pain, Epistaxis, Gingival Bleeding, Hearing Loss, Mouth Swelling, Nasal Congestion, Ocular Prosthesis, Throat Pain, Toothache, Ringing in Ears, Other Neck: denies: No Symptoms, Decreased ROM, Lumps, Pain on Movement, Stiffness, Swollen Glands, Tenderness, Other Cardiovascular: denies: No Symptoms, Chest Pain, Edema, Palpitations, Shortness of Breath, Other Respiratory: denies: No Symptoms, Cough, Exercise Intolerance, Hemoptysis, Orthopnea, PND, Snoring, SOB, SOB on Exertion, Wheezing, Other Gastrointestinal: denies: No Symptoms, Abdominal Pain, Bloating, Constipation, Diarrhea, Dysphagia, Indigestion, Melena, Nausea, Rectal Bleeding, Vomiting, Vomiting Blood, Other Genitourinary: denies: No Symptoms, Burning, Discharge, Dysuria, Flank Pain, Frequency, Hematuria, Incontinence, Lesions, Menses, Pain, Testicular Mass, Testicular Pain, Testicular Swelling, Urgency, Vaginal Bleeding, Other Breasts: denies: No Symptoms Reported, See HPI, Breast Implants, Discharge from Nipple, Lumps, Pain, Skin Changes, Other Musculoskeletal: denies: No Symptoms, Back Pain, Crepitus, Decreased ROM, Extremity Pain, Joint Pain, Joint Swelling, Muscle Pain, Muscle Cramps, Muscle Weakness, Other Integumentary: denies: No Symptoms, Blister, Bruising, Change in Color, Eczema, Erythema, Incision, Lesions, Lump, Pallor, Pruritis, Rash, Wound, Other Neurological: reports: Syncope. denies: No Symptoms, Change in LOC, Change in Speech, Confusion, Dizziness, Headache, Incoordination, Numbness, Parasthesia, Pre-Existing Deficit, Seizure, Tremors, Unsteady Gait, Weakness, Other Endocrine: denies: No Symptoms, Excessive Sweating, Flushing, Increased Hunger, Increased Thirst, Intolerance to Cold, Intolerance to Heat, Unexplained Weight Gain, Unexplained Weight Loss, Other Hematology/Lymphatic: denies: No Symptoms, Easily Bruised, Excessive Bleeding, Swollen Glands, Other Psychiatric: denies: No Symptoms, Altered Sleep Pattern, Anxiety, Depression, Hallucinations, Panic, Paranoia, Suicidal, Other - Risk Factors Known Risk Factors: Yes: Age, Diabetes Mellitus, Hypercholesterolemia, Hypertension Vital Signs: Vital Signs Temperature 98.4 F 05/03/17 05:19 Pulse Rate 63 05/03/17 05:19 Respiratory Rate 18 05/03/17 05:19 Blood Pressure 180/86 05/03/17 05:19 O2 Sat by Pulse Oximetry (%) 100 05/03/17 00:59 Constitutional: Yes: Well Nourished, No Distress, Calm Eyes: Yes: WNL, Conjunctiva Clear, EOM Intact, PERRL HENT: Yes: WNL, Atraumatic, Normocephalic Neck: Yes: WNL, Supple, Trachea Midline Respiratory: Yes: WNL, Regular, CTA Bilaterally. No: Rales, Rhonchi, SOB, Wheezes Gastrointestinal: Yes: WNL, Normal Bowel Sounds, Soft. No: Distention, Tenderness Renal/: Yes: WNL Cardiovascular: Yes: Regular Rate and Rhythm. No: Bradycardia, Tachycardia, Pulse Irregular, Gallop, Rub, Varicosities JVD: No Carotid Bruit: No PMI: Non-Displaced Heart Sounds: Yes: S1, S2. No: Split S2, S3, S4, Clicks, Gallop, Rub, Bruit Murmur: Yes: Systolic Murmur, Grade 2 Musculoskeletal: Yes: WNL Extremities: Yes: WNL Edema: No Peripheral Pulses WNL: Yes Peripheral Pulses: 2+ Left Doralis Pedis, 2+ Right Dorsalis Pedis Integumentary: Yes: WNL Neurological: Yes: Alert, Oriented Psychiatric: Yes: Alert, Oriented - Other Data Labs, Other Data: INR, PTT INR 1.03 (0.82-1.09) 05/02/17 20:19 Troponin, BNP 05/03/17 02:15 Troponin I < 0.02 Troponin, BNP 05/03/17 02:15 Troponin I < 0.02 ekg-nsr 61bpm, T inversions V4, V5, V6, III, Poor R progression, nonspecific ST abnl Echo: Pending, Report Reviewed Imaging - Results Chest X-ray: Report Reviewed, Image Reviewed EKG: Report Reviewed, Image Reviewed Other: Report Reviewed, Image Reviewed (tele-nsr, no events recorded) Assessment/Plan 87 year old woman with a history of HTN, DMII, TIA, recently tx for diverticulitis admitted with a possible syncopal episode. Syncope-unclear etiology, pt describes the episode as feeling tired and putting her head down to sleep -does not appear cardiac in origin -very mild murmur on exam does not suggest significant , and echo from 2014 showed a normal AV, echo ordered to evaluate for this and other structural heart disease -if VT/VF was responsible for this event, it should have been apparent on EMS arrival, and pt would not likely have recovered so quickly -unlikely ACS as there were no preceding symptoms, ekg does not appear ischemic , cardiac enzymes wnl -no arrhythmias recorded on telemetry -check carotid doppler to evaluate for stenosis -consider Neuro evaluation and possible MRI brain given h/o TIA and CT head findings -check orthostatic BP if not done already (not recorded in EMR) Chest pain-reports occasional mild episodes, last 1 week ago -unlikely ACS -f/up echo -consider ischemic work up after syncope work up, either inpatient or outpatient -cardiac enzymes wnl -no ischemia on ekg, no sig change from past ekgs HTN-variable, uncontrolled at times -check orthostatic BP -cont home medical regimen and re-evaluate
[2017-05-03] MEDS ORDERED: PT OWN MED DRAWER 7, Y5N ONE ×3 (08:54→21:59)
[2017-05-03] MEDS: POLYETHYLENE GLYCOL 3350 119 GM BTL PO SCH ×2 (09:23→22:04)
[2017-05-03] MEDS: PANTOPRAZOLE 20 MG TABLET (FP) PO SCH (09:27)
[2017-05-03] MEDS: ASPIRIN 81 MG CHEWABLE TABLETS PO SCH (09:29)
[2017-05-03] MEDS ORDERED: predniSONE 20 MG TABLET (UD) PO SCH (10:00)
[2017-05-03] MEDS: TIMOLOL 0.5% OPHTHALMIC SOL 5 ML BOTTLE OU SCH ×2 (10:34→22:04)
[2017-05-03] MEDS: predniSONE 1 MG TABLET (FP) PO SCH (11:58)
--- NOTE | 2017-05-03 12:47 | PN ---
Physical Exam: SUBJECTIVE: Patient seen and examined. She has no complaints. OBJECTIVE: Vital Signs Period Temp Pulse Resp BP Sys/Chowdhury Pulse Ox Last 24 Hr 97.5 F-98.4 F 56-64 18-18 144-180/74-86 100 GENERAL: The patient is awake, alert, and fully oriented, in no acute distress. LUNGS: Breath sounds equal, clear to auscultation bilaterally, no wheezes, no crackles, no accessory muscle use. HEART: Regular rate and rhythm, S1, S2, 2/6 systolic murmur. ABDOMEN: Soft, nontender, nondistended, normoactive bowel sounds, no guarding, no rebound, no hepatosplenomegaly, no masses. EXTREMITIES: 2+ pulses, warm, well-perfused, no edema. NEUROLOGICAL: Cranial nerves II through XII grossly intact. Normal speech. Strength 4+/5 in all extremities. Gait not observed. Laboratory Results - last 24 hr 05/03/17 05/03/17 05/03/17 02:15 02:25 03:00 PTT (Actin FS) Cancelled POC Glucometer Creatine Kinase 94 Troponin I < 0.02 Urine Color Straw Urine Appearance Clear Urine pH 6.0 Ur Specific [place] 1.020 Urine Protein Negative Urine Glucose (UA) Negative Urine Ketones Negative Urine Blood Negative Urine Nitrite Negative Urine Bilirubin Negative Urine Urobilinogen Negative Ur Leukocyte Esterase Negative 05/03/17 05/03/17 06:23 11:44 PTT (Actin FS) POC Glucometer 150 215 Creatine Kinase Troponin I Urine Color Urine Appearance Urine pH Ur Specific [place] Urine Protein Urine Glucose (UA) Urine Ketones Urine Blood Urine Nitrite Urine Bilirubin Urine Urobilinogen Ur Leukocyte Esterase Active Medications Generic Name Dose Route Start Last Admin Trade Name Freq PRN Reason Stop Dose Admin Aspirin 81 mg 05/03/17 10:00 05/03/17 09:29 Asa - PO 81 mg DAILY JANICE Administration Atenolol 25 mg 05/03/17 06:45 05/03/17 06:49 Tenormin - PO 25 mg DAILY JANICE Administration Hydralazine HCl 10 mg 05/03/17 06:45 05/03/17 06:49 Apresoline - PO 10 mg DAILY JANICE Administration Sodium Chloride 1,000 mls @ 50 mls/hr 05/03/17 01:00 05/03/17 06:41 Normal Saline - IV 05/04/17 00:59 50 mls/hr ASDIR JANICE Administration Insulin Aspart 1 vial 05/03/17 07:00 05/03/17 11:58 Novolog Vial Sliding Scale - SQ 2 units ACHS JANICE Administration Protocol Latanoprost 1 drop 05/03/17 22:00 Xalatan 0.005% Eye Drops - OU HS JANICE Levofloxacin 500 mg 05/04/17 06:00 Levaquin - PO DAILY@0600 JANICE Metronidazole 500 mg 05/03/17 06:00 05/03/17 06:41 Flagyl - PO 500 mg TID JANICE Administration Pantoprazole Sodium 20 mg 05/03/17 10:00 05/03/17 09:27 Protonix - PO 20 mg DAILY JANICE Administration Polyethylene Glycol 17 gm 05/03/17 10:00 05/03/17 09:23 Miralax (For Daily Use) - PO Not Given BID JANICE Prednisone 1 mg 05/03/17 10:00 05/03/17 11:58 Deltasone - PO 1 mg DAILY JANICE Administration Timolol Maleate 1 drop 05/03/17 10:00 05/03/17 10:34 Timoptic 0.5% OU 1 drop BID JANICE Administration ASSESSMENT/PLAN: This is an 87-year-old woman with a history of type 2 DM, HTN, diverticulitis, TIA, who presented to the ER after passing out. 1. Syncope - Likely secondary to dehydration with possible orthostatic hypotension - No arrhythmias on telemetry - Troponin negative x 2 - Head CT shows small area of hypoattenuation with suggestion of loss of white matter differentiation in the posterior aspect of the right parietal lobe ; severe chronic microvascular ischemic changes - MRI of brain - Echocardiogram - Carotid dopplers 2. Acute kidney injury secondary to dehydration - Continue IV fluid - Monitor creatinine 3. Type 2 DM - Metformin held - Continue Novolog sliding scale 4. HTN - Continue Atenolol, Hydralazine 5. Recent colitis - Complete course of Levaquin, Flagyl 6. History of TIA - Continue aspirin Visit type - Emergency Visit Emergency Visit: Yes ED Registration Date: 05/03/17 Care time: The patient presented to the Emergency Department on the above date and was hospitalized for further evaluation of their emergent condition. - New Patient This patient is new to me today: Yes Date on this admission: 05/03/17 - Critical Care Critical Care patient: No - Discharge Referral Referred to [facility] No
[2017-05-03] MEDS: hydrALAZINE HCL 10 MG TABLET PO SCH ×2 (17:43→22:04)
[2017-05-03] MEDS: LATANOPROST 0.005% OPHTH SOLN 2.5ML BOTTLE OU SCH (22:05)
[2017-05-04] MEDS ORDERED: PT OWN MED DRAWER 7, Y5N ONE ×3 (05:48→20:54)
[2017-05-04] MEDS: LEVOFLOXACIN 500 MG TABLET (FP) PO SCH (05:50)
[2017-05-04] MEDS: hydrALAZINE HCL 10 MG TABLET PO SCH ×3 (05:50→21:00)
[2017-05-04] MEDS: metroNIDAZOLE 500 MG TABLET PO SCH ×3 (05:50→21:01)
[2017-05-04] MEDS ORDERED: LEVOFLOXACIN 250 MG TABLET (FP) PO SCH (06:00)
[2017-05-04] MEDS: INSULIN SLIDING SCALE (NOVOLOG) 1 VIAL SQ SCH ×4 (06:06→22:16)
[2017-05-04 07:42] LABS: MCH 29.8 pg (25.7-33.7); MEAN CELL VOLUME 90.6 fl (80-96); WHITE BLOOD COUNT 6.4 K/mm3 (4.0-10.0)
[2017-05-04 07:43] LABS: MCHC 32.9 g/dl (32.0-36.0); MEAN PLT VOLUME 8.8 fl (7.5-11.1); PLATELET COUNT 203 K/MM3 (134-434); RDW 14.6 % (11.6-15.6)
[2017-05-04 08:12] LABS: ANION GAP 9 (8-16); CALCIUM 8.7 mg/dL (8.5-10.1); CO2 30 mmol/L (21-32); CREATININE 0.8 mg/dL (0.55-1.02); GLUCOSE,RANDOM 190 mg/dL (74-106); MAGNESIUM 1.7 mg/dL (1.8-2.4); PHOSPHOROUS 2.7 mg/dL (2.5-4.9)
[2017-05-04] MEDS: PANTOPRAZOLE 20 MG TABLET (FP) PO SCH (08:59)
[2017-05-04] MEDS: ASPIRIN 81 MG CHEWABLE TABLETS PO SCH (09:00)
[2017-05-04] MEDS: ATENOLOL 25 MG TABLET (FP) PO SCH (09:00)
[2017-05-04] MEDS: TIMOLOL 0.5% OPHTHALMIC SOL 5 ML BOTTLE OU SCH ×2 (09:01→21:00)
[2017-05-04] MEDS: predniSONE 1 MG TABLET (FP) PO SCH (09:01)
[2017-05-04] MEDS: POLYETHYLENE GLYCOL 3350 119 GM BTL PO SCH ×2 (09:07→21:04)
--- NOTE | 2017-05-04 11:13 | PN ---
Physical Exam: SUBJECTIVE: Patient seen and examined No acute events overnight. No complaints this morning. Patient eating comfortably in bed OBJECTIVE: Vital Signs Period Temp Pulse Resp BP Sys/Chowdhury Pulse Ox Last 24 Hr 97.5 F-98.8 F 56-69 14-18 144-185/76-102 96-100 GENERAL: The patient is awake, alert, and fully oriented, in no acute distress. HEAD: Normal with no signs of trauma. EYES: extraocular movements intact, sclera anicteric, conjunctiva clear. ENT: oropharynx clear without exudates, moist mucous membranes. NECK: Trachea midline, full range of motion LUNGS: Breath sounds equal, clear to auscultation bilaterally, no wheezes, no crackles, no accessory muscle use. HEART: Regular rate and rhythm, S1, S2 ABDOMEN: Soft, nontender, nondistended, normoactive bowel sounds, no guarding, no rebound, no hepatosplenomegaly, no masses. EXTREMITIES: 2+ pulses, warm, well-perfused, no edema. NEUROLOGICAL: Normal speech, gait not observed. PSYCH: Normal mood, normal affect. SKIN: Warm, dry, normal turgor, no rashes or lesions noted Laboratory Results - last 24 hr 05/03/17 05/03/17 05/03/17 11:44 17:21 22:12 WBC RBC Hgb Hct MCV MCH MCHC RDW Plt Count MPV Sodium Potassium Chloride Carbon Dioxide Anion Gap BUN Creatinine POC Glucometer 215 181 166 Random Glucose Calcium Phosphorus Magnesium 05/04/17 05/04/17 05/04/17 05:26 05:35 05:35 WBC 6.4 RBC 3.57 L Hgb 10.6 L Hct 32.3 L MCV 90.6 MCH 29.8 MCHC 32.9 RDW 14.6 Plt Count 203 MPV 8.8 Sodium 143 Potassium 3.9 Chloride 104 Carbon Dioxide 30 Anion Gap 9 BUN 14 Creatinine 0.8 D POC Glucometer 183 Random Glucose 190 H D Calcium 8.7 Phosphorus 2.7 Magnesium 1.7 L Active Medications Generic Name Dose Route Start Last Admin Trade Name Freq PRN Reason Stop Dose Admin Aspirin 81 mg 05/03/17 10:00 05/04/17 09:00 Asa - PO 81 mg DAILY JANICE Administration Atenolol 25 mg 05/03/17 06:45 05/04/17 09:00 Tenormin - PO 25 mg DAILY JANICE Administration Hydralazine HCl 10 mg 05/03/17 17:16 05/04/17 05:50 Apresoline - PO 10 mg TID JANICE Administration Insulin Aspart 1 vial 05/03/17 07:00 05/04/17 06:06 Novolog Vial Sliding Scale - SQ Not Given ACHS [facility] Protocol Latanoprost 1 drop 05/03/17 22:00 05/03/17 22:05 Xalatan 0.005% Eye Drops - OU 1 drop HS JANICE Administration Levofloxacin 500 mg 05/04/17 06:00 05/04/17 05:50 Levaquin - PO 500 mg DAILY@0600 JANICE Administration Metronidazole 500 mg 05/03/17 06:00 05/04/17 05:50 Flagyl - PO 500 mg TID JANICE Administration Pantoprazole Sodium 20 mg 05/03/17 10:00 05/04/17 08:59 Protonix - PO 20 mg DAILY JANICE Administration Polyethylene Glycol 17 gm 05/03/17 10:00 05/04/17 09:07 Miralax (For Daily Use) - PO Not Given BID JANICE Prednisone 1 mg 05/03/17 10:00 05/04/17 09:01 Deltasone - PO 1 mg DAILY JANICE Administration Timolol Maleate 1 drop 05/03/17 10:00 05/04/17 09:01 Timoptic 0.5% OU 1 drop BID JANICE Administration ASSESSMENT/PLAN: 87-year-old woman with a history of type 2 DM, HTN, diverticulitis, TIA, who presented to the ER after a syncopal episode. 1. Syncope-- possibly dehydration vs orthostatic hypotension -Unlikely cardiac-- no arrhythmias noted, cardiac workup negative -Carotid dopplers- mild atherosclerotic disease with no evidence of significant stenosis -MRI and Echocardiogram pending -Head CT showed small area of hypoattenuation with suggestion of loss of white matter differentiation in the posterior aspect of the right parietal lobe and severe chronic microvascular ischemic changes 2. YARI secondary to dehydration - Creatinine 0.8 today - IVF stopped yesterday 3. DM - Continue Novolog sliding scale 4. HTN - Continue Atenolol 25 mg PO daily, Hydralazine 10 mg PO TID 5. Recent colitis - Continue Levaquin 500 mg PO daily and Flagyl 500 mg PO TID 6. History of TIA - Continue aspirin 81 mg Visit type - Emergency Visit Emergency Visit: No - New Patient This patient is new to me today: Yes Date on this admission: 05/04/17 - Critical Care Critical Care patient: No
--- NOTE | 2017-05-04 11:22 | PN ---
Progress Note, Physician History of Present Illness: 87 year old woman with a history of HTN, DMII, TIA, recently tx for diverticulitis admitted with a possible syncopal episode. As per report and as per pt she was in the kitchen doing dishes and other activities then felt very tired. she sat down and put her head down on the table to rest and the next thing she knew she woke up with her family there. As per report from family she was very difficult to arouse and it took approximately 15minutes to wake her up. EMS arrived and gave her glucose tablet after which she was alert. On arrival to the ER she was awake and alert. She denies any symptoms prior to the event other than feeling tired and remembers putting her head down on the table to rest. Denies any palpitations, lightheadedness, dizziness, sob, or chest pain prior to the event. She does admit to occasional mild substernal chest discomfort that lasts a minute, the last episode was approximately 1 week ago. She has had other similar episodes to this approx 6 months ago and approx 1 year ago. She was recently discharged 04/29 after being treated for diverticulitis. She was seen and examined this am in [facility]. Denies any current complaints or any symptoms since coming in to the hospital. - Current Medication List Current Medications: Active Medications Aspirin (Asa -) 81 mg PO DAILY [facility] Last Admin: 05/04/17 09:00 Dose: 81 mg Atenolol (Tenormin -) 25 mg PO DAILY [facility] Last Admin: 05/04/17 09:00 Dose: 25 mg Hydralazine HCl (Apresoline -) 10 mg PO TID [facility] Last Admin: 05/04/17 05:50 Dose: 10 mg Insulin Aspart (Novolog Vial Sliding Scale -) 1 vial SQ [facility], [facility] PRN Reason: Protocol Last Admin: 05/04/17 06:06 Dose: Not Given Latanoprost (Xalatan 0.005% Eye Drops -) 1 drop OU HS [facility] Last Admin: 05/03/17 22:05 Dose: 1 drop Levofloxacin (Levaquin -) 500 mg PO DAILY@0600 [facility] Last Admin: 05/04/17 05:50 Dose: 500 mg Metronidazole (Flagyl -) 500 mg PO TID [facility] Last Admin: 05/04/17 05:50 Dose: 500 mg Pantoprazole Sodium (Protonix -) 20 mg PO DAILY [facility] Last Admin: 05/04/17 08:59 Dose: 20 mg Polyethylene Glycol (Miralax (For Daily Use) -) 17 gm PO BID [facility] Last Admin: 05/04/17 09:07 Dose: Not Given Prednisone (Deltasone -) 1 mg PO DAILY [facility] Last Admin: 05/04/17 09:01 Dose: 1 mg Timolol Maleate (Timoptic 0.5%) 1 drop OU BID [facility] Last Admin: 05/04/17 09:01 Dose: 1 drop - Objective Vital Signs: Vital Signs Temperature 98.2 F 05/04/17 08:00 Pulse Rate 62 05/04/17 08:00 Respiratory Rate 14 05/04/17 08:00 Blood Pressure 144/76 05/04/17 08:00 O2 Sat by Pulse Oximetry (%) 96 05/04/17 10:01 Eyes: Yes: WNL, Conjunctiva Clear, EOM Intact HENT: Yes: WNL, Atraumatic, Normocephalic Neck: Yes: WNL, Supple, Trachea Midline Cardiovascular: Yes: WNL, Regular Rate and Rhythm Respiratory: Yes: WNL, Regular, CTA Bilaterally Gastrointestinal: Yes: WNL, Normal Bowel Sounds Genitourinary: Yes: WNL Musculoskeletal: Yes: WNL Extremities: Yes: WNL Edema: No Integumentary: Yes: WNL Neurological: Yes: WNL, Alert, Oriented ...Motor Strength: WNL Psychiatric: Yes: WNL Labs: CBC, BMP 05/04/17 05:35 05/04/17 05:35 INR, PTT INR 1.03 (0.82-1.09) 05/02/17 20:19 Assessment/Plan 87 year old woman with a history of HTN, DMII, TIA, recently tx for diverticulitis admitted with a possible syncopal episode. Syncope-unclear etiology, pt describes the episode as feeling tired and putting her head down to sleep -does not appear cardiac in origin -very mild murmur on exam does not suggest significant , and echo from 2014 showed a normal AV, echo ordered to evaluate for this and other structural heart disease -unlikely ACS as there were no preceding symptoms, ekg does not appear ischemic , cardiac enzymes wnl -no arrhythmias recorded on telemetry -check carotid doppler to evaluate for stenosis -consider Neuro evaluation and possible MRI brain given h/o TIA and CT head findings -check orthostatic BP if not done already (not recorded in EMR) Chest pain-reports occasional mild episodes, last 1 week ago -unlikely ACS -f/up echo -consider ischemic work up after syncope work up, either inpatient or outpatient -cardiac enzymes wnl -no ischemia on ekg, no sig change from past ekgs HTN-variable, uncontrolled at times -check orthostatic BP -cont home medical regimen and re-evaluate
[2017-05-04] MEDS ORDERED: MAGNESIUM OXIDE 400 MG TABLET (FP) PO ONE (12:04)
[2017-05-04] MEDS ORDERED: METOPROLOL SUCCINATE 50 MG TAB.SR.24H (FP) ONE (15:02)
--- NOTE | 2017-05-04 16:29 | PN ---
Teaching Attending Note Name of Resident: Montana Erazo ATTENDING PHYSICIAN STATEMENT I saw and evaluated the patient. I reviewed the resident's note and discussed the case with the resident. I agree with the resident's findings and plan as documented. SUBJECTIVE: Patient complains of difficulty swallowing and weakness in her right leg when walking. She attributes this to an injury sustained in a fall several weeks ago. OBJECTIVE: Vital Signs Period Temp Pulse Resp BP Sys/Chowdhury Pulse Ox Last 24 Hr 98 F-98.8 F 56-69 14-18 130-185/66-102 96-100 GENERAL: The patient is awake, alert, and fully oriented, in no acute distress. LUNGS: Breath sounds equal, clear to auscultation bilaterally, no wheezes, no crackles, no accessory muscle use. HEART: Regular rate and rhythm, S1, S2, 2/6 systolic murmur. ABDOMEN: Soft, nontender, nondistended, normoactive bowel sounds, no guarding, no rebound, no hepatosplenomegaly, no masses. EXTREMITIES: 2+ pulses, warm, well-perfused, no edema. NEUROLOGICAL: Cranial nerves II through XII grossly intact. Normal speech. Strength 4+/5 in all extremities. Gait not observed. ASSESSMENT AND PLAN: 1. Syncope - Likely secondary to dehydration with possible orthostatic hypotension - No arrhythmias on telemetry - Troponin negative x 2 - Carotid doppler shows no hemodynamically significant stenosis - Echocardiogram shows normal LV, normal RV, trace MR, mild TR, trace MT, impaired LV relaxation 2. Acute right frontal ischemic CVA - MRI of brain shows acute infarct in cortex of right precentral gyrus of right frontal lobe - Neurology, physical therapy, swallow evaluations - Continue aspirin and start Lipitor 2. Acute kidney injury secondary to dehydration - Improved 3. Type 2 DM - Metformin held - Continue Novolog sliding scale 4. HTN - Continue Atenolol, Hydralazine 5. Recent colitis - Complete course of Levaquin, Flagyl 6. History of TIA - Continue aspirin
--- NOTE | 2017-05-04 17:42 | CON.NEURO ---
Consult - History of Present Illness History of Present Illness: episode of passing out and a nonhemorrhagic ischemic stroke on mri of brain 87 year old female history of DM, HTN TIA . She presented to hospital for slumped over the table and unconscious . There was no seizures activity. no prior history of seizure. Patient is back to her baseline. She had carotid ultrasound it was normal. as per patient she takes aspirin and statin at home. Patient has echo done and report is pending. She denies any headache, dysphagia dysarthria or diplopia. She is sitting at chair , eating dinner and very comfortable. - Past Medical History FULL TIME: Yes: TIA Cardio/Vascular: Yes: HTN, Hyperlipdemia Endocrine: Yes: Diabetes Mellitus - Past Surgical History Past Surgical History: Yes: Cholecystectomy, , Hysterectomy - Alcohol/Substance Use Hx Alcohol Use: No - Smoking History Smoking history: Never smoked Have you smoked in the past 12 months: No Aproximately how many cigarettes per day: 0 - Social History Usual Living Arrangement: With Child ADL: Independent History of Recent Travel: No Home Medications - Allergies Allergies/Adverse Reactions: Allergies Allergy/AdvReac Type Severity Reaction Status Date / Time No Known Allergies Allergy Verified 05/02/17 18:40 - Home Medications Home Medications: Ambulatory Orders Aspirin [ASA -] 81 mg PO DAILY #0 tab.chew 02/22/15 Polyethylene Glycol 3350 [Miralax 119 gm Btl -] 17 gm PO BID #0 bottle 02/22/15 Docusate Sodium [Colace] 100 mg PO BID PRN 04/09/15 Metformin HCl [Glucophage] 1,000 mg PO BID 04/09/15 Omeprazole [Prilosec] 20 mg PO Q2D 04/09/15 Prednisone [Deltasone -] 1 mg PO DAILY 04/09/15 Atenolol [Tenormin -] 25 mg PO DAILY 04/23/17 Hydralazine HCl [Apresoline -] 10 mg PO DAILY 04/23/17 Latanoprost 0.005% Eye Drops [Xalatan 0.005% Eye Drops -] 1 drop OU HS 04/28/17 Timolol 0.5% [Timoptic 0.5%] 1 drop OU BID 04/28/17 Levofloxacin [Levaquin] 500 mg PO DAILY #7 tablet 04/29/17 Metronidazole [Flagyl -] 500 mg PO TID #21 tablet 04/29/17 Family Disease History - Family Disease History Family Disease History: CA: Mother (lung) Physical Exam-Neuro Vital Signs: Vital Signs Temperature 98.1 F 05/04/17 14:18 Pulse Rate 57 L 05/04/17 14:18 Respiratory Rate 16 05/04/17 14:18 Blood Pressure 130/66 05/04/17 14:18 O2 Sat by Pulse Oximetry (%) 96 05/04/17 10:01 Labs: INR, PTT INR 1.03 (0.82-1.09) 05/02/17 20:19 NIH Stroke Scale - Total Score NIH Stroke Scale Score: 0 Imaging - Results Cat Scan: Image Reviewed Ultrasound: Image Reviewed MRI: Image Reviewed Assessment/Plan cc episode of passing out and a nonhemorrhagic ischemic stroke on mri of brain 87 year old female history of DM, HTN TIA . She presented to hospital for slumped over the table and unconscious . There was no seizures activity. no prior history of seizure. Patient is back to her baseline. She had carotid ultrasound it was normal. as per patient she takes aspirin and statin at home. Patient has echo done and report is pending. She denies any headache, dysphagia dysarthria or diplopia. She is sitting at chair , eating dinner and very comfortable. Past Medical History - DM HTN Hyperlipidemia, diverticulitis, tia Medication - reviewed in chart Surgery in past - cholecystectomy , c section and hysterectomy Medication at home Aspirin [ASA -] 81 mg PO DAILY #0 tab.chew 02/22/15 Polyethylene Glycol 3350 [Miralax 119 gm Btl -] 17 gm PO BID #0 bottle 02/22/15 Docusate Sodium [Colace] 100 mg PO BID PRN 04/09/15 Metformin HCl [Glucophage] 1,000 mg PO BID 04/09/15 Omeprazole [Prilosec] 20 mg PO Q2D 04/09/15 Prednisone [Deltasone -] 1 mg PO DAILY 04/09/15 Atenolol [Tenormin -] 25 mg PO DAILY 04/23/17 Hydralazine HCl [Apresoline -] 10 mg PO DAILY 04/23/17 Latanoprost 0.005% Eye Drops [Xalatan 0.005% Eye Drops -] 1 drop OU HS 07/04/17 Timolol 0.5% [Timoptic 0.5%] 1 drop OU BID 04/28/17 Levofloxacin [Levaquin] 500 mg PO DAILY #7 tablet 04/29/17 Metronidazole [Flagyl -] 500 mg PO TID #21 tablet 04/29/17 Neurological Examination Alert oriented x 2, follow command Moving all extremities sensation is normal MRI of brain reviewed Assessment - small lacuar asymptomatic ischemic lesion, Unlikely to be cause of syncope Plan-- suggest to to continue aspirin and lipitor can be started at 40 mg once a day - given her age and mri lesion is asymptomatic , I think aspirin would be reasonable as plavix would have more side effect - continue life style modifications - may follow up outpatient with me thanking you so much Isaiah Rice MD
[2017-05-04] MEDS: LATANOPROST 0.005% OPHTH SOLN 2.5ML BOTTLE OU SCH (21:00)
[2017-05-05] MEDS: LEVOFLOXACIN 500 MG TABLET (FP) PO SCH (05:26)
[2017-05-05] MEDS: hydrALAZINE HCL 10 MG TABLET PO SCH ×3 (05:27→22:21)
[2017-05-05] MEDS ORDERED: metroNIDAZOLE 250 MG TABLET PO SCH (06:00)
[2017-05-05] MEDS: INSULIN SLIDING SCALE (NOVOLOG) 1 VIAL SQ SCH ×4 (06:41→22:24)
[2017-05-05 07:54] LABS: BASOPHIL 0.7 % (0-2.0); EOSINOPHIL 1.7 % (0-4.5); MCH 29.5 pg (25.7-33.7); MCHC 32.7 g/dl (32.0-36.0); MEAN CELL VOLUME 90.1 fl (80-96); NEUTROPHILS 56.9 % (42.8-82.8); PLATELET COUNT 207 K/MM3 (134-434); RDW 14.9 % (11.6-15.6); WHITE BLOOD COUNT 5.3 K/mm3 (4.0-10.0)
[2017-05-05 08:03] LABS: MAGNESIUM 1.8 mg/dL (1.8-2.4)
[2017-05-05 08:05] LABS: PHOSPHOROUS 2.9 mg/dL (2.5-4.9)
[2017-05-05] MEDS ORDERED: PT OWN MED DRAWER 7, Y5N ONE ×2 (08:18→22:09)
[2017-05-05] MEDS: ASPIRIN 81 MG CHEWABLE TABLETS PO SCH (10:12)
[2017-05-05] MEDS: PANTOPRAZOLE 20 MG TABLET (FP) PO SCH (10:12)
[2017-05-05] MEDS: ATENOLOL 25 MG TABLET (FP) PO SCH (10:12)
[2017-05-05] MEDS: predniSONE 1 MG TABLET (FP) PO SCH (10:13)
[2017-05-05] MEDS: TIMOLOL 0.5% OPHTHALMIC SOL 5 ML BOTTLE OU SCH ×2 (10:14→22:24)
[2017-05-05] MEDS: POLYETHYLENE GLYCOL 3350 119 GM BTL PO SCH ×2 (10:25→22:28)
--- NOTE | 2017-05-05 11:52 | PN ---
Progress Note, Physician Chief Complaint: Pt OOB in chair, eating lunch; no chest pain or dyspnea; was able to walk to bathroom. History of Present Illness: The patient is an 87 year old black female, accompanied by family member with a significant past medical history of diabetes mellitus, hypertension, diverticulitis, and TIA, who presents to the emergency department s/p syncopal episode earlier this evening. As per patients , the patient was sitting at the kitchen table and was fully alert. After he left and returned he noted the patient was slumped over on the table and difficult to arouse. reports the patient passed out for 15 minutes. Patient only recalls that she felt sleepy. She denies any head trauma or falling on the floor. Family member reports calling EMS, and when EMS arrived on scene the patient was given a glucose tablet, and patient perked up. Family member reports a similar episode 6 months ago and 1 year ago, however, this was the longest her syncopal episode has been. Per records patient was recently discharged on 04/29/17 for diverticulitis, with no surgical interventions. Patient denies any nausea, vomiting, diarrhea, or constipation. She denies any dysuria, hematuria, frequency, or urgency. She denies any chest pain, shortness of breath, diaphoresis, or palpitations. She denies any changes in vision, fever, chills, cough, headache, or dizziness. She denies any recent travel or sick contacts. Allergies: None reported Past Surgical History: Cholecystectomy Social History: Non smoker. No ETOH or drug use. PCP: Dr. Coronel - Current Medication List Current Medications: Active Medications Aspirin (Asa -) 81 mg PO DAILY [facility] Last Admin: 05/05/17 10:12 Dose: 81 mg Atenolol (Tenormin -) 25 mg PO DAILY [facility] Last Admin: 05/05/17 10:12 Dose: 25 mg Hydralazine HCl (Apresoline -) 10 mg PO TID [facility] Last Admin: 05/05/17 05:27 Dose: 10 mg Insulin Aspart (Novolog Vial Sliding Scale -) 1 vial SQ ACHS [facility] PRN Reason: Protocol Last Admin: 05/05/17 11:45 Dose: Not Given Latanoprost (Xalatan 0.005% Eye Drops -) 1 drop OU HS [facility] Last Admin: 05/04/17 21:00 Dose: 1 drop Levofloxacin (Levaquin -) 500 mg PO DAILY@0600 [facility] Last Admin: 05/05/17 05:26 Dose: 500 mg Metronidazole (Flagyl -) 500 mg PO TID [facility] Pantoprazole Sodium (Protonix -) 20 mg PO DAILY [facility] Last Admin: 05/05/17 10:12 Dose: 20 mg Polyethylene Glycol (Miralax (For Daily Use) -) 17 gm PO BID [facility] Last Admin: 05/05/17 10:25 Dose: 17 gm Prednisone (Deltasone -) 1 mg PO DAILY [facility] Last Admin: 05/05/17 10:13 Dose: 1 mg Timolol Maleate (Timoptic 0.5%) 1 drop OU BID [facility] Last Admin: 05/05/17 10:14 Dose: 1 drop - Objective Vital Signs: Vital Signs Temperature 98.0 F 05/05/17 09:00 Pulse Rate 59 L 05/05/17 09:00 Respiratory Rate 18 05/05/17 09:00 Blood Pressure 149/76 05/05/17 09:00 O2 Sat by Pulse Oximetry (%) 96 05/04/17 22:25 Constitutional: Yes: Calm Eyes: Yes: WNL HENT: Yes: WNL Neck: Yes: WNL Cardiovascular: Yes: Regular Rate and Rhythm Respiratory: Yes: WNL Gastrointestinal: Yes: Soft ...Rectal Exam: Yes: Deferred Genitourinary: No: Anuria Breast(s): Yes: WNL Musculoskeletal: Yes: Muscle Weakness Edema: No Peripheral Pulses WNL: Yes Neurological: Yes: Weakness Psychiatric: Yes: Alert, Oriented Labs: CBC, BMP 05/05/17 05:35 INR, PTT INR 1.03 (0.82-1.09) 05/02/17 20:19 Abnormal Lab Results 05/05/17 05:35 Hgb 10.6 L - ....Imaging Ultrasound: Report Reviewed (ECHO: normal LVEF; LVH; abnormal diastolic compliance) Problem List - Problems (1) Syncope Code(s): R55 - SYNCOPE AND COLLAPSE Qualifiers: Syncope type: unspecified Qualified Code(s): R55 - Syncope and collapse (2) Arthralgia Code(s): M25.50 - PAIN IN UNSPECIFIED JOINT (3) Diabetes Code(s): E11.9 - TYPE 2 DIABETES MELLITUS WITHOUT COMPLICATIONS (4) Diverticulitis Code(s): K57.92 - DVTRCLI OF INTEST, PART UNSP, W/O PERF OR ABSCESS W/O BLEED Qualifiers: Diverticulitis site: large intestine Diverticulitis bleeding: without bleeding Diverticulitis complication: with perforation Qualified Code (s): K57.20 - Diverticulitis of large intestine with perforation and abscess without bleeding (5) Frozen shoulder Code(s): M75.00 - ADHESIVE CAPSULITIS OF UNSPECIFIED SHOULDER (6) Hypertension Assessment/Plan: On atenolol and hydralazine. Recommend adding ACEI or ARB (HTN; DM). Code(s): I10 - ESSENTIAL (PRIMARY) HYPERTENSION Qualifiers: Hypertension type: essential hypertension Qualified Code(s): I10 - Essential (primary) hypertension (7) Inability to ambulate due to hip Code(s): R26.2 - DIFFICULTY IN WALKING, NOT ELSEWHERE CLASSIFIED (8) CVA (cerebral vascular accident) Assessment/Plan: On ASA per neurologist. On atenolol and hydralazine; f/u BP and HR. aggressive control of cholesterol. Physical rehabilitation. Code(s): I63.9 - CEREBRAL INFARCTION, UNSPECIFIED (9) Hyperlipidemia Assessment/Plan: f/u lipid panel; start statin, even if lipid values are "normal" (HTN; DM; CVA). Code(s): E78.5 - HYPERLIPIDEMIA, UNSPECIFIED (10) Hypomagnesemia Assessment/Plan: f/u electrolytes; replete as necessary. Code(s): E83.42 - HYPOMAGNESEMIA
--- NOTE | 2017-05-05 11:54 | CONSULT ---
Admitting History and Physical - Primary Care Physician PCP: Sascha Leary - Admission History of Present Illness: 87 year old female with PMH of DM, HTN TIA, admitted after found slumped over the table and unconscious . Patient is reported to be back to her baseline Selected Entries 05/03/17 05/03/17 05/03/17 00:59 05:19 09:29 Temperature 98 F 98.4 F 97.5 F L 05/03/17 05/03/17 05/03/17 13:51 17:00 21:00 Temperature 97.5 F L 98.8 F 98 F 05/04/17 05/04/17 05/04/17 03:11 08:00 14:18 Temperature 98.4 F 98.2 F 98.1 F 05/04/17 05/04/17 05/05/17 18:00 22:00 02:00 Temperature 98.1 F 98.5 F 97.8 F 05/05/17 05/05/17 06:00 09:00 Temperature 98.4 F 98.0 F Laboratory Tests 05/04/17 05/05/17 05:35 05:35 WBC 6.4 5.3 Pt is verbal, appropriate. History Source: Patient, Medical Record Limitations to Obtaining History: No Limitations - Past Medical History [employer]: Yes: TIA Cardiovascular: Yes: HTN, Hyperlipdemia Endocrine: Yes: Diabetes Mellitus - Past Surgical History Past Surgical History: Yes: Cholecystectomy, , Hysterectomy - Smoking History Smoking history: Never smoked Have you smoked in the past 12 months: No Aproximately how many cigarettes per day: 0 - Alcohol/Substance Use Hx Alcohol Use: No - Social History ADL: Independent History of Recent Travel: No History - Admission Reason For Visit: SYNCOPE - Diagnostics X-ray: Report Reviewed MRI: Report Reviewed (5.0 mm x 2.2 mm acute nonhemorrhagic infarct in the cortex of the right precentral gyrus of the right frontal lobe with restrictive changes seen on diffusion-weighted images.") - General Mental Status: Alert and Oriented, Awake and Alert, Able to Follow Commands Attention: Intact Ability to Follow Directions: Excellent Head/Neck Control: WFL - Hearing Hearing: Normal Hearing Aide: No With Patient: No Speech Evaluation - Communication Primary Language: MALAY Communication: Yes: Within Normal Limits Oral Expression Ability: Yes: No Impairment - Speech Production Able to Make Needs Known: Yes: WNL Intelligibility: Yes: WNL - Speech Characteristics Voice Loudness: Normal Voice Pitch: Yes: Normal Voice Phonatory-based Quality: Yes: Normal Speech Pattern: Normal Speech Clarity: < 100% Nasal Resonance: Normal Articulation: Yes: Precise Rate of Speech: Intact - Language/Auditory Comprehension Follows: Yes: 2 Stage Simple Commands - Language/Verbal Expression Able to Respond to Simple Queries: Yes: WNL Able to Communicate Wants and Needs: Yes: WNL Functional Communication Status: Yes: WNL - 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 Nursing provided toothpaste for mouth/tongue care. Monitor), Symmetric Lingual Speed of Movement: Normal Lingual Movement Strgth Against Opposition: Normal Lingual Movement Characteristics: Normal Velopharyngeal Movement: Normal Laryngeal Elevation: WFL Laryngeal Movement: Able to Palpate Rate of Intake: WFL Bolus Size: WFL Labial Seal: WFL Chewing: WFL Oral Prep Time: WFL A-P Transit: WFL Pocketing: None Timing of Swallow: WFL Coughing/Throat Clear: No Change in Voice: No Recommendations - Speech Evaluation, Impression/Plan Impression: Speech/Language/Cognition intact.Pt reports coughing boccasionally while eating. She denies need of Heimlich or congestion/PNA. She reports symptoms of hearburn most nights, and takes Tums. She has not been seen by GI in the past.She drinks OJ, soda, coffe etc. Dinner at 6, bedtime is 9. r/o GERD. Recommendations: GI Consult (out pt), Other (consider medical mgmt for heartburn Educated pt on reducing caffeine,carbonation, citrus, upright for 2-3 hours after meals, and to avoid PO intake within 3 hours of bedtime.GI consult if heartburn persists.Written directions provided and placed in paper chart.) - Recommendations Diet Consistency: Regular Medication Administration: Whole with water Liquids: Thin Liquids
[2017-05-05 13:01] LABS: THYROID STIMULATING HORMONE 1.9 uIU/ml (0.358-3.74)
[2017-05-05] MEDS: metroNIDAZOLE 500 MG TABLET PO SCH ×2 (14:14→22:23)
--- NOTE | 2017-05-05 14:24 | PN ---
Teaching Attending Note Name of Resident: Deya Miramontes ATTENDING PHYSICIAN STATEMENT I saw and evaluated the patient. I reviewed the resident's note and discussed the case with the resident. I agree with the resident's findings and plan as documented. SUBJECTIVE: denies syncope dizziness or chest pain Vital Signs Temperature 98.0 F 05/05/17 09:00 Pulse Rate 59 L 05/05/17 09:00 Respiratory Rate 18 05/05/17 09:00 Blood Pressure 149/76 05/05/17 09:00 O2 Sat by Pulse Oximetry (%) 97 05/05/17 09:00 GENERAL: The patient is awake, alert, and fully oriented, in no acute distress. LUNGS: Breath sounds equal, clear to auscultation bilaterally, no wheezes, no crackles, no accessory muscle use. HEART: Regular rate and rhythm, S1, S2, 2/6 systolic murmur. ABDOMEN: Soft, nontender, nondistended, normoactive bowel sounds, no guarding, no rebound, no hepatosplenomegaly, no masses. EXTREMITIES: 2+ pulses, warm, well-perfused, no edema. NEUROLOGICAL: Cranial nerves II through XII grossly intact. Normal speech. Strength 4+/5 in all extremities. Gait not observed. Laboratory 05/02/17 05/02/17 05/02/17 18:31 20:10 20:19 WBC 6.1 K/mm3 K/mm3 (4.0-10.0) RBC 3.58 M/mm3 L M/mm3 (3.60-5.2) Hgb 10.5 GM/dL L GM/dL (10.7-15.3) Hct 32.4 % % (32.4-45.2) MCV 90.7 fl fl (80-96) MCH 29.3 pg pg (25.7-33.7) MCHC 32.4 g/dl g/dl (32.0-36.0) RDW 14.9 % % (11.6-15.6) Plt Count 216 K/MM3 K/MM3 (134-434) MPV 9.2 fl D fl (7.5-11.1) Neutrophils % 61.7 % % (42.8-82.8) Lymphocytes % 24.7 % % (8-40) Monocytes % 11.1 % H % (3.8-10.2) Eosinophils % 1.9 % D % (0-4.5) Basophils % 0.6 % % (0-2.0) INR PTT (Actin FS) Sodium Potassium Chloride Carbon Dioxide Anion Gap BUN Creatinine Creat Clearance w eGFR POC Glucometer [phone] UNITS UNITS (()) Random Glucose Calcium Phosphorus Magnesium Total Bilirubin AST ALT Alkaline Phosphatase Creatine Kinase 110 IU/L IU/L (26-192) Troponin I < 0.02 ng/ml ng/ml (0.00-0.05) Total Protein Albumin Triglycerides Cholesterol Total LDL Cholesterol HDL Cholesterol TSH Urine Color Urine Appearance Urine pH Ur Specific Ash Urine Protein Urine Glucose (UA) Urine Ketones Urine Blood Urine Nitrite Urine Bilirubin Urine Urobilinogen Ur Leukocyte Esterase 05/02/17 05/02/17 05/03/17 20:19 20:19 02:15 WBC RBC Hgb Hct MCV MCH MCHC RDW Plt Count MPV Neutrophils % Lymphocytes % Monocytes % Eosinophils % Basophils % INR 1.03 (0.82-1.09) PTT (Actin FS) Sodium 144 mmol/L mmol/L (136-145) Potassium 4.2 mmol/L mmol/L (3.5-5.1) Chloride 106 mmol/L mmol/L (98-107) Carbon Dioxide 31 mmol/L D mmol/L (21-32) Anion Gap 7 L (8-16) BUN 16 mg/dL D mg/dL (7-18) Creatinine 1.2 mg/dL H D mg/dL (0.55-1.02) Creat Clearance w eGFR 42.50 (>60) POC Glucometer Random Glucose 133 mg/dL H D mg/dL (74-106) Calcium 9.9 mg/dL mg/dL (8.5-10.1) Phosphorus Magnesium 1.6 mg/dL L mg/dL (1.8-2.4) Total Bilirubin 0.3 mg/dL D mg/dL (0.2-1.0) AST 16 U/L D U/L (15-37) ALT 19 U/L D U/L (12-78) Alkaline Phosphatase 58 U/L U/L (45-117) Creatine Kinase 94 IU/L IU/L (26-192) Troponin I < 0.02 ng/ml ng/ml (0.00-0.05) Total Protein 6.1 g/dl L g/dl (6.4-8.2) Albumin 3.2 g/dl L g/dl (3.4-5.0) Triglycerides Cholesterol Total LDL Cholesterol HDL Cholesterol TSH Urine Color Urine Appearance Urine pH Ur Specific Ash Urine Protein Urine Glucose (UA) Urine Ketones Urine Blood Urine Nitrite Urine Bilirubin Urine Urobilinogen Ur Leukocyte Esterase 05/03/17 05/03/17 05/03/17 02:25 03:00 06:23 WBC RBC Hgb Hct MCV MCH MCHC RDW Plt Count MPV Neutrophils % Lymphocytes % Monocytes % Eosinophils % Basophils % INR PTT (Actin FS) Cancelled Sodium Potassium Chloride Carbon Dioxide Anion Gap BUN Creatinine Creat Clearance w eGFR POC Glucometer 150 UNITS UNITS (()) Random Glucose Calcium Phosphorus Magnesium Total Bilirubin AST ALT Alkaline Phosphatase Creatine Kinase Troponin I Total Protein Albumin Triglycerides Cholesterol Total LDL Cholesterol HDL Cholesterol TSH Urine Color Straw Urine Appearance Clear Urine pH 6.0 (5.0-8.0) Ur Specific Ash 1.020 (1.005-1.025) Urine Protein Negative (NEGATIVE) Urine Glucose (UA) Negative (NEGATIVE) Urine Ketones Negative (NEGATIVE) Urine Blood Negative (NEGATIVE) Urine Nitrite Negative (NEGATIVE) Urine Bilirubin Negative (NEGATIVE) Urine Urobilinogen Negative E.U./dl E.U./dl (0.2-1.0) Ur Leukocyte Esterase Negative (NEGATIVE) 05/03/17 05/03/17 05/03/17 11:44 17:21 22:12 WBC RBC Hgb Hct MCV MCH MCHC RDW Plt Count MPV Neutrophils % Lymphocytes % Monocytes % Eosinophils % Basophils % INR PTT (Actin FS) Sodium Potassium Chloride Carbon Dioxide Anion Gap BUN Creatinine Creat Clearance w eGFR POC Glucometer 215 UNITS UNITS 181 UNITS UNITS 166 UNITS UNITS (()) (()) (()) Random Glucose Calcium Phosphorus Magnesium Total Bilirubin AST ALT Alkaline Phosphatase Creatine Kinase Troponin I Total Protein Albumin Triglycerides Cholesterol Total LDL Cholesterol HDL Cholesterol TSH Urine Color Urine Appearance Urine pH Ur Specific Ash Urine Protein Urine Glucose (UA) Urine Ketones Urine Blood Urine Nitrite Urine Bilirubin Urine Urobilinogen Ur Leukocyte Esterase 05/04/17 05/04/17 05/04/17 05:26 05:35 05:35 WBC 6.4 K/mm3 K/mm3 (4.0-10.0) RBC 3.57 M/mm3 L M/mm3 (3.60-5.2) Hgb 10.6 GM/dL L GM/dL (10.7-15.3) Hct 32.3 % L % (32.4-45.2) MCV 90.6 fl fl (80-96) MCH 29.8 pg pg (25.7-33.7) MCHC 32.9 g/dl g/dl (32.0-36.0) RDW 14.6 % % (11.6-15.6) Plt Count 203 K/MM3 K/MM3 (134-434) MPV 8.8 fl fl (7.5-11.1) Neutrophils % Lymphocytes % Monocytes % Eosinophils % Basophils % INR PTT (Actin FS) Sodium 143 mmol/L mmol/L (136-145) Potassium 3.9 mmol/L mmol/L (3.5-5.1) Chloride 104 mmol/L mmol/L (98-107) Carbon Dioxide 30 mmol/L mmol/L (21-32) Anion Gap 9 (8-16) BUN 14 mg/dL mg/dL (7-18) Creatinine 0.8 mg/dL D mg/dL (0.55-1.02) Creat Clearance w eGFR POC Glucometer 183 UNITS UNITS (()) Random Glucose 190 mg/dL H D mg/dL (74-106) Calcium 8.7 mg/dL mg/dL (8.5-10.1) Phosphorus 2.7 mg/dL mg/dL (2.5-4.9) Magnesium 1.7 mg/dL L mg/dL (1.8-2.4) Total Bilirubin AST ALT Alkaline Phosphatase Creatine Kinase Troponin I Total Protein Albumin Triglycerides Cholesterol Total LDL Cholesterol HDL Cholesterol TSH Urine Color Urine Appearance Urine pH Ur Specific Ash Urine Protein Urine Glucose (UA) Urine Ketones Urine Blood Urine Nitrite Urine Bilirubin Urine Urobilinogen Ur Leukocyte Esterase 05/04/17 05/04/17 05/04/17 11:35 15:34 22:13 WBC RBC Hgb Hct MCV MCH MCHC RDW Plt Count MPV Neutrophils % Lymphocytes % Monocytes % Eosinophils % Basophils % INR PTT (Actin FS) Sodium Potassium Chloride Carbon Dioxide Anion Gap BUN Creatinine Creat Clearance w eGFR POC Glucometer 251 UNITS UNITS 191 UNITS UNITS 217 UNITS UNITS (()) (()) (()) Random Glucose Calcium Phosphorus Magnesium Total Bilirubin AST ALT Alkaline Phosphatase Creatine Kinase Troponin I Total Protein Albumin Triglycerides Cholesterol Total LDL Cholesterol HDL Cholesterol TSH Urine Color Urine Appearance Urine pH Ur Specific Ash Urine Protein Urine Glucose (UA) Urine Ketones Urine Blood Urine Nitrite Urine Bilirubin Urine Urobilinogen Ur Leukocyte Esterase 05/05/17 05/05/17 05/05/17 05:17 05:35 05:35 WBC 5.3 K/mm3 K/mm3 (4.0-10.0) RBC 3.60 M/mm3 M/mm3 (3.60-5.2) Hgb 10.6 GM/dL L GM/dL (10.7-15.3) Hct 32.5 % % (32.4-45.2) MCV 90.1 fl fl (80-96) MCH 29.5 pg pg (25.7-33.7) MCHC 32.7 g/dl g/dl (32.0-36.0) RDW 14.9 % % (11.6-15.6) Plt Count 207 K/MM3 K/MM3 (134-434) MPV 9.0 fl fl (7.5-11.1) Neutrophils % 56.9 % % (42.8-82.8) Lymphocytes % 31.7 % D % (8-40) Monocytes % 9.0 % % (3.8-10.2) Eosinophils % 1.7 % % (0-4.5) Basophils % 0.7 % % (0-2.0) INR PTT (Actin FS) Sodium Potassium Chloride Carbon Dioxide Anion Gap BUN Creatinine Creat Clearance w eGFR POC Glucometer 139 UNITS UNITS (()) Random Glucose Calcium Phosphorus 2.9 mg/dL mg/dL (2.5-4.9) Magnesium 1.8 mg/dL mg/dL (1.8-2.4) Total Bilirubin AST ALT Alkaline Phosphatase Creatine Kinase Troponin I Total Protein Albumin Triglycerides 149 mg/dL mg/dL (35-160) Cholesterol 153 mg/dL mg/dL (50-200) Total LDL Cholesterol 82 mg/dL mg/dL (5-100) HDL Cholesterol 49 mg/dL mg/dL (40-60) TSH 1.90 uIU/ml uIU/ml (0.358-3.74) Urine Color Urine Appearance Urine pH Ur Specific Ash Urine Protein Urine Glucose (UA) Urine Ketones Urine Blood Urine Nitrite Urine Bilirubin Urine Urobilinogen Ur Leukocyte Esterase 05/05/17 05:35 WBC RBC Hgb Hct MCV MCH MCHC RDW Plt Count MPV Neutrophils % Lymphocytes % Monocytes % Eosinophils % Basophils % INR PTT (Actin FS) Sodium Potassium Chloride Carbon Dioxide Anion Gap BUN Creatinine Creat Clearance w eGFR POC Glucometer Random Glucose Calcium Phosphorus Magnesium Total Bilirubin AST ALT Alkaline Phosphatase Creatine Kinase Troponin I Total Protein Albumin Triglycerides Cancelled Cholesterol Cancelled Total LDL Cholesterol Cancelled HDL Cholesterol Cancelled TSH Cancelled Urine Color Urine Appearance Urine pH Ur Specific Ash Urine Protein Urine Glucose (UA) Urine Ketones Urine Blood Urine Nitrite Urine Bilirubin Urine Urobilinogen Ur Leukocyte Esterase ASSESSMENT AND PLAN: 1. Syncope - Likely secondary to dehydration with possible orthostatic hypotension - No arrhythmias on telemetry - Troponin negative x 2 - Carotid doppler shows no hemodynamically significant stenosis - Echocardiogram shows normal LV, normal RV, trace MR, mild TR, trace MN, impaired LV relaxation 2. Acute right frontal ischemic CVA - MRI of brain shows acute infarct in cortex of right precentral gyrus of right frontal lobe - Neurology, physical therapy, swallow evaluations - Continue aspirin start Lipitor 2. Acute kidney injury secondary to dehydration - Improved 3. Type 2 DM - Metformin held - Continue Novolog sliding scale 4. HTN- uncontrolled - increase hydralazine
--- NOTE | 2017-05-05 16:26 | PN ---
Physical Exam: SUBJECTIVE: Patient seen and examined No acute events overnight. No complaints this morning. Walking with assistance. Patient denies dizziness, headache, weakness, or numbness. OBJECTIVE: Vital Signs Period Temp Pulse Resp BP Sys/Chowdhury Pulse Ox Last 24 Hr 97.8 F-98.5 F 57-62 16-18 132-195/67-89 96-97 GENERAL: The patient is awake, alert, and fully oriented, in no acute distress. HEAD: Normal with no signs of trauma. EYES: extraocular movements intact, sclera anicteric, conjunctiva clear. ENT: oropharynx clear without exudates, moist mucous membranes. NECK: Trachea midline, full range of motion LUNGS: Breath sounds equal, clear to auscultation bilaterally, no wheezes, no crackles, no accessory muscle use. HEART: Regular rate and rhythm, S1, S2 ABDOMEN: Soft, nontender, nondistended, normoactive bowel sounds, no guarding, no rebound, no hepatosplenomegaly, no masses. EXTREMITIES: 2+ pulses, warm, well-perfused, no edema. NEUROLOGICAL: Normal speech, gait not observed. Cranial nerves intact, sensation intact bilaterally, 5/5 strength bilaterally except 4/5 on hip flexion. PSYCH: Normal mood, normal affect. SKIN: Warm, dry, normal turgor, no rashes or lesions noted Laboratory Results - last 24 hr 05/04/17 05/05/17 05/05/17 22:13 05:17 05:35 WBC 5.3 RBC 3.60 Hgb 10.6 L Hct 32.5 MCV 90.1 MCH 29.5 MCHC 32.7 RDW 14.9 Plt Count 207 MPV 9.0 Neutrophils % 56.9 Lymphocytes % 31.7 D Monocytes % 9.0 Eosinophils % 1.7 Basophils % 0.7 POC Glucometer 217 139 Phosphorus Magnesium Triglycerides Cholesterol Total LDL Cholesterol HDL Cholesterol TSH 05/05/17 05/05/17 05/05/17 05:35 05:35 11:32 WBC RBC Hgb Hct MCV MCH MCHC RDW Plt Count MPV Neutrophils % Lymphocytes % Monocytes % Eosinophils % Basophils % POC Glucometer 199 Phosphorus 2.9 Magnesium 1.8 Triglycerides 149 Cancelled Cholesterol 153 Cancelled Total LDL Cholesterol 82 Cancelled HDL Cholesterol 49 Cancelled TSH 1.90 Cancelled 05/05/17 15:38 WBC RBC Hgb Hct MCV MCH MCHC RDW Plt Count MPV Neutrophils % Lymphocytes % Monocytes % Eosinophils % Basophils % POC Glucometer 232 Phosphorus Magnesium Triglycerides Cholesterol Total LDL Cholesterol HDL Cholesterol TSH Active Medications Generic Name Dose Route Start Last Admin Trade Name Sakina PRN Reason Stop Dose Admin Aspirin 81 mg 05/03/17 10:00 05/05/17 10:12 Asa - PO 81 mg DAILY JANICE Administration Atenolol 25 mg 05/03/17 06:45 05/05/17 10:12 Tenormin - PO 25 mg DAILY JANICE Administration Atorvastatin Calcium 40 mg 05/05/17 22:00 Lipitor - PO HS JANICE Hydralazine HCl 20 mg 05/05/17 14:00 05/05/17 14:13 Apresoline - PO 20 mg TID JANICE Administration Insulin Aspart 1 vial 05/03/17 07:00 05/05/17 11:45 Novolog Vial Sliding Scale - SQ Not Given ACHS [facility] Protocol Latanoprost 1 drop 05/03/17 22:00 05/04/17 21:00 Xalatan 0.005% Eye Drops - OU 1 drop HS JANICE Administration Levofloxacin 500 mg 05/04/17 06:00 05/05/17 05:26 Levaquin - PO 500 mg DAILY@0600 JANICE Administration Metronidazole 500 mg 05/05/17 14:00 05/05/17 14:14 Flagyl - PO 500 mg TID JANICE Administration Pantoprazole Sodium 20 mg 05/03/17 10:00 05/05/17 10:12 Protonix - PO 20 mg DAILY JANICE Administration Polyethylene Glycol 17 gm 05/03/17 10:00 05/05/17 10:25 Miralax (For Daily Use) - PO 17 gm BID JANICE Administration Prednisone 1 mg 05/03/17 10:00 05/05/17 10:13 Deltasone - PO 1 mg DAILY JANICE Administration Senna 1 tab 05/05/17 22:00 Senna - PO HS JANICE Timolol Maleate 1 drop 05/03/17 10:00 05/05/17 10:14 Timoptic 0.5% OU 1 drop BID JANICE Administration ASSESSMENT/PLAN: 87-year-old woman with a history of type 2 DM, HTN, diverticulitis, TIA, who presented to the ER after a syncopal episode. 1. Syncope-- possibly dehydration vs orthostatic hypotension -Unlikely cardiac-- no arrhythmias noted, cardiac workup negative -Carotid dopplers- mild atherosclerotic disease with no evidence of significant stenosis 2. Acute nonischemic infarct -MRI shows 5.0 mm x 2.2 mm acute nonhemorrhagic infarct in the cortex of the right precentral gyrus -Neuro evaluated-- "asymptomatic ischemic lesion" Pt will f/u outpatient with Neuro -Currently awaiting PT evaluation for dispo plan -Start Lipitor 40 mg PO hs -Continue taking aspirin 81 mg PO 3. YARI secondary to dehydration - Resolved - IVF stopped 4. DM - Continue Novolog sliding scale 5. HTN - Not controlled - Continue Atenolol 25 mg PO daily, Hydralazine increased to 20 mg PO TID 6. Recent colitis -Patient will complete abx course of Levoquin and flagyl for a total of 14 days (until 05/07/16) 7. History of TIA - Continue aspirin 81 mg Visit type - Emergency Visit Emergency Visit: No - New Patient This patient is new to me today: No - Critical Care Critical Care patient: No
[2017-05-05] MEDS ORDERED: SENNOSIDES 8.6MG TABLET (FP) PO SCH (22:00)
[2017-05-05] MEDS ORDERED: ATORVASTATIN CA 40 MG TABLET (FP) PO SCH (22:00)
[2017-05-05] MEDS: LATANOPROST 0.005% OPHTH SOLN 2.5ML BOTTLE OU SCH (22:23)
[2017-05-06] MEDS: hydrALAZINE HCL 10 MG TABLET PO SCH ×2 (06:48→13:10)
[2017-05-06] MEDS: INSULIN SLIDING SCALE (NOVOLOG) 1 VIAL SQ SCH ×2 (06:48→12:22)
[2017-05-06] MEDS: LEVOFLOXACIN 500 MG TABLET (FP) PO SCH (06:48)
[2017-05-06] MEDS: metroNIDAZOLE 500 MG TABLET PO SCH (06:49)
[2017-05-06 07:33] VITALS: TEMP 98
--- NOTE | 2017-05-06 07:58 | PN ---
Teaching Attending Note Name of Resident: Montana Erazo ATTENDING PHYSICIAN STATEMENT I saw and evaluated the patient. I reviewed the resident's note and discussed the case with the resident. I agree with the resident's findings and plan as documented. SUBJECTIVE:no acute events overnight, ambulating , no dizziness OBJECTIVE: Vital Signs Temperature 98.0 F 05/06/17 07:00 Pulse Rate 60 05/06/17 07:00 Respiratory Rate 20 05/06/17 07:00 Blood Pressure 155/88 05/06/17 07:00 O2 Sat by Pulse Oximetry (%) 96 05/05/17 20:43 GENERAL: The patient is awake, alert, and fully oriented, in no acute distress. LUNGS: Breath sounds equal, clear to auscultation bilaterally, no wheezes, no crackles, no accessory muscle use. HEART: Regular rate and rhythm, S1, S2, 2/6 systolic murmur. ABDOMEN: Soft, nontender, nondistended, normoactive bowel sounds, no guarding, no rebound, no hepatosplenomegaly, no masses. EXTREMITIES: 2+ pulses, warm, well-perfused, no edema. NEUROLOGICAL: Cranial nerves II through XII grossly intact. Normal speech. Strength 4+/5 in all extremities. Gait not observed. CBC, BMP 05/06/17 05:48 05/06/17 05:48 ASSESSMENT AND PLAN: 1. Syncope- no acute events one telemetry , possibly neurogenic and reletaed to #2 2. Acute right frontal ischemic CVA . Carotid doppler shows no hemodynamically significant stenosis. Echocardiogram shows normal LV, normal RV, trace MR, mild TR, trace MO, impaired LV relaxation. MRI of brain shows acute infarct in cortex of right precentral gyrus of right frontal lobe - Continue aspirin start Lipitor - lifestyle and risk factor modifications 2. Acute kidney injury secondary to dehydration - Improved 3. Type 2 DM - Metformin held - Continue Novolog sliding scale 4. HTN- better controlled d/ c home with home PT . Follow up with PCP within 2 weeks to check LFT stroke education
[2017-05-06 08:04] LABS: BASOPHIL 0.9 % (0-2.0); EOSINOPHIL 1.9 % (0-4.5); MCH 29.7 pg (25.7-33.7); MCHC 32.9 g/dl (32.0-36.0); MEAN CELL VOLUME 90.1 fl (80-96); MEAN PLT VOLUME 9.1 fl (7.5-11.1); NEUTROPHILS 58.8 % (42.8-82.8); PLATELET COUNT 206 K/MM3 (134-434); RDW 14.7 % (11.6-15.6); WHITE BLOOD COUNT 5.3 K/mm3 (4.0-10.0)
[2017-05-06 08:07] LABS: SERUM IRON 58 ug/dL (27-139); TOTAL IRON BINDING CAPACITY 222 ug/dL (250-450); UIBC 164 ug/dL (118-369)
[2017-05-06 08:30] LABS: ANION GAP 8 (8-16); CALCIUM 8.7 mg/dL (8.5-10.1); CO2 31 mmol/L (21-32); CREATININE 0.9 mg/dL (0.55-1.02); GLUCOSE,RANDOM 180 mg/dL (74-106); MAGNESIUM 1.9 mg/dL (1.8-2.4)
[2017-05-06] MEDS ORDERED: PT OWN MED DRAWER 7, Y5N ONE (09:13)
[2017-05-06] MEDS: ATENOLOL 25 MG TABLET (FP) PO SCH (09:22)
[2017-05-06] MEDS: PANTOPRAZOLE 20 MG TABLET (FP) PO SCH (09:22)
[2017-05-06] MEDS: ASPIRIN 81 MG CHEWABLE TABLETS PO SCH (09:22)
[2017-05-06] MEDS: TIMOLOL 0.5% OPHTHALMIC SOL 5 ML BOTTLE OU SCH (09:23)
[2017-05-06] MEDS: predniSONE 1 MG TABLET (FP) PO SCH (09:23)
[2017-05-06] MEDS: POLYETHYLENE GLYCOL 3350 119 GM BTL PO SCH (09:27)
--- NOTE | 2017-05-06 10:48 | PN ---
Progress Note, Physician History of Present Illness: 87 year old woman with a history of HTN, DMII, TIA, recently tx for diverticulitis admitted with a possible syncopal episode. As per report and as per pt she was in the kitchen doing dishes and other activities then felt very tired. she sat down and put her head down on the table to rest and the next thing she knew she woke up with her family there. As per report from family she was very difficult to arouse and it took approximately 15minutes to wake her up. EMS arrived and gave her glucose tablet after which she was alert. On arrival to the ER she was awake and alert. She denies any symptoms prior to the event other than feeling tired and remembers putting her head down on the table to rest. Denies any palpitations, lightheadedness, dizziness, sob, or chest pain prior to the event. She does admit to occasional mild substernal chest discomfort that lasts a minute, the last episode was approximately 1 week ago. She has had other similar episodes to this approx 6 months ago and approx 1 year ago. She was recently discharged 04/29 after being treated for diverticulitis. She was seen and examined this am in [facility]. Denies any current complaints or any symptoms since coming in to the hospital. - Current Medication List Current Medications: Active Medications Aspirin (Asa -) 81 mg PO DAILY [facility] Last Admin: 05/06/17 09:22 Dose: 81 mg Atenolol (Tenormin -) 25 mg PO DAILY [facility] Last Admin: 05/06/17 09:22 Dose: 25 mg Atorvastatin Calcium (Lipitor -) 40 mg PO [facility] Last Admin: 05/05/17 22:21 Dose: 40 mg Hydralazine HCl (Apresoline -) 20 mg PO TID [facility] Last Admin: 05/06/17 06:48 Dose: 20 mg Insulin Aspart (Novolog Vial Sliding Scale -) 1 vial SQ ACHS [facility] PRN Reason: Protocol Last Admin: 05/06/17 06:48 Dose: Not Given Latanoprost (Xalatan 0.005% Eye Drops -) 1 drop OU [facility] Last Admin: 05/05/17 22:23 Dose: 1 drop Metronidazole (Flagyl -) 500 mg PO TID [facility] Pantoprazole Sodium (Protonix -) 20 mg PO DAILY [facility] Last Admin: 05/06/17 09:22 Dose: 20 mg Polyethylene Glycol (Miralax (For Daily Use) -) 17 gm PO BID [facility] Last Admin: 05/06/17 09:27 Dose: Not Given Prednisone (Deltasone -) 1 mg PO DAILY [facility] Last Admin: 05/06/17 09:23 Dose: 1 mg Senna (Senna -) 1 tab PO HS [facility] Last Admin: 05/05/17 22:21 Dose: 1 tab Timolol Maleate (Timoptic 0.5%) 1 drop OU BID [facility] Last Admin: 05/06/17 09:23 Dose: 1 drop - Objective Vital Signs: Vital Signs Temperature 98.0 F 05/06/17 07:00 Pulse Rate 60 05/06/17 07:00 Respiratory Rate 20 05/06/17 07:00 Blood Pressure 155/88 05/06/17 07:00 O2 Sat by Pulse Oximetry (%) 96 05/05/17 20:43 Eyes: Yes: WNL, Conjunctiva Clear, EOM Intact HENT: Yes: WNL, Atraumatic, Normocephalic Neck: Yes: WNL, Supple, Trachea Midline Cardiovascular: Yes: WNL, Regular Rate and Rhythm Respiratory: Yes: WNL, Regular, CTA Bilaterally Gastrointestinal: Yes: WNL, Normal Bowel Sounds Genitourinary: Yes: WNL Musculoskeletal: Yes: WNL Extremities: Yes: WNL Edema: No Integumentary: Yes: WNL Neurological: Yes: WNL, Alert, Oriented ...Motor Strength: WNL Psychiatric: Yes: WNL Labs: CBC, BMP 05/06/17 05:48 05/06/17 05:48 INR, PTT INR 1.03 (0.82-1.09) 05/02/17 20:19 Assessment/Plan - Problems (1) Syncope Code(s): R55 - SYNCOPE AND COLLAPSE Qualifiers: Syncope type: unspecified Qualified Code(s): R55 - Syncope and collapse (2) Arthralgia Code(s): M25.50 - PAIN IN UNSPECIFIED JOINT (3) Diabetes Code(s): E11.9 - TYPE 2 DIABETES MELLITUS WITHOUT COMPLICATIONS (4) Diverticulitis Code(s): K57.92 - DVTRCLI OF INTEST, PART UNSP, W/O PERF OR ABSCESS W/O BLEED Qualifiers: Diverticulitis site: large intestine Diverticulitis bleeding: without bleeding Diverticulitis complication: with perforation Qualified Code (s): K57.20 - Diverticulitis of large intestine with perforation and abscess without bleeding (5) Frozen shoulder Code(s): M75.00 - ADHESIVE CAPSULITIS OF UNSPECIFIED SHOULDER (6) Hypertension Assessment/Plan: On atenolol and hydralazine. Recommend adding ACEI or ARB (HTN; DM). Code(s): I10 - ESSENTIAL (PRIMARY) HYPERTENSION Qualifiers: Hypertension type: essential hypertension Qualified Code(s): I10 - Essential (primary) hypertension (7) Inability to ambulate due to hip Code(s): R26.2 - DIFFICULTY IN WALKING, NOT ELSEWHERE CLASSIFIED (8) CVA (cerebral vascular accident) Assessment/Plan: On ASA per neurologist. On atenolol and hydralazine; f/u BP and HR. aggressive control of cholesterol. Physical rehabilitation. Code(s): I63.9 - CEREBRAL INFARCTION, UNSPECIFIED (9) Hyperlipidemia Assessment/Plan: f/u lipid panel; start statin, even if lipid values are "normal" (HTN; DM; CVA). Code(s): E78.5 - HYPERLIPIDEMIA, UNSPECIFIED (10) Hypomagnesemia Assessment/Plan: f/u electrolytes; replete as necessary. Code(s): E83.42 - HYPOMAGNESEMIA
[2017-05-06 10:52] VITALS: BP 146/87; PULSE 70
[2017-05-06] MEDS ORDERED: INSULIN (NOVOLOG) ASPART 100 UNITS/ML 10ML VIAL ONE (12:11)
[2017-05-06] MEDS ORDERED: metroNIDAZOLE 500 MG TABLET PO SCH (14:00)
--- NOTE | 2017-05-06 14:29 | EKG ---
Test Reason : Blood Pressure : / mmHG Vent. Rate : 061 BPM Atrial Rate : 061 BPM P-R Int : 168 ms QRS Dur : 092 ms QT Int : 412 ms P-R-T Axes : 059 -06 009 degrees QTc Int : 414 ms NORMAL SINUS RHYTHM NONSPECIFIC T WAVE ABNORMALITY ABNORMAL ECG WHEN COMPARED WITH ECG OF 23-APR-2017 15:52, NO SIGNIFICANT CHANGE WAS FOUND Confirmed by DHAVAL VELA MD ([id number]) on 05/06/2017 2:29:17 PM Referred By: Confirmed By:DHAVAL VELA MD
--- NOTE | 2017-05-06 16:22 | DS ---
Physical Exam: SUBJECTIVE: Patient seen and examined No acute events overnight. No complaints OBJECTIVE: Vital Signs Period Temp Pulse Resp BP Sys/Chowdhury Pulse Ox Last 24 Hr 97.8 F-98.4 F 57-70 20-20 146-178/72-88 96-96 PHYSICAL EXAM GENERAL: The patient is awake, alert, and fully oriented, in no acute distress. HEAD: Normal with no signs of trauma. EYES: extraocular movements intact, sclera anicteric, conjunctiva clear. ENT: oropharynx clear without exudates, moist mucous membranes. NECK: Trachea midline, full range of motion LUNGS: Breath sounds equal, clear to auscultation bilaterally, no wheezes, no crackles, no accessory muscle use. HEART: Regular rate and rhythm, S1, S2 ABDOMEN: Soft, nontender, nondistended, normoactive bowel sounds, no guarding, no rebound, no hepatosplenomegaly, no masses. EXTREMITIES: 2+ pulses, warm, well-perfused, no edema. NEUROLOGICAL: Normal speech, gait not observed. Cranial nerves intact, sensation intact bilaterally, 5/5 strength bilaterally except 4/5 on hip flexion. PSYCH: Normal mood, normal affect. SKIN: Warm, dry, normal turgor, no rashes or lesions noted LABS Laboratory Results - last 24 hr Vital Signs - 8 hr 05/06/17 05/06/17 08:30 09:00 Temperature 98.0 F Pulse Rate 70 Respiratory 20 Rate Blood Pressure 146/87 O2 Sat by Pulse 96 Oximetry (%) Abnormal Lab Results 05/05/17 05/06/17 05/06/17 05:35 05:48 05:48 Monocytes % 11.3 H Random Glucose 180 H TIBC 222 L Imaging- CXR-Impression: Large heart. Degenerative changes. No acute chest pathology. CT head- Severe chronic microvascular ischemic changes or prominent than 2006. U/s Doppler-Minimal atherosclerotic disease with no evidence of hemodynamically significant stenoses. MRI brain-[facility]. 5.0 mm x 2.2 mm acute nonhemorrhagic infarct is seen in the cortex of the right precentral gyrus of the right frontal lobe with restrictive changes seen on diffusion-weighted images. HOSPITAL COURSE: Date of Admission:05/04/17 Date of Discharge: 05/06/17 87 yo F with PMH of DM, HTN, diverticulitis, and TIA, who presented to the ED s/ p a witnessed syncopal episode and admitted for syncope in the setting of a prior TIA. During hospitalization, patient had an EKG, which was negative for ACS. Troponins were negative x3. CXR was done, which showed cardiomegaly. CT head was negative for any acute pathology. Carotid dopplers were done, which were negative for any stenosis. An echocardiogram showed no significant change from her prior one in 01/2015. Due to her hx of TIA, an MRI was done, which revealed an acute nonhemorrhagic infarct in the precentral gyrus. Neurology evaluated her and didn't believe her syncopal episode was due to this acute infarct. They recommended outpatient followup. Patient's hypertension was uncontrolled during her stay. We increased her hydralazine to 20mg TID. In addition, during this stay she was started on Lipitor 40mg. She is also continuing her course of antibiotics for a recent epidsode of colitis (levoquin and flagyl). She was discharged home with home physical therapy and visiting nurse services. Minutes to complete discharge: 30 Discharge Summary Reason For Visit: SYNCOPE Current Active Problems CVA (cerebral vascular accident) (Acute) Hypomagnesemia (Acute) Syncope (Acute) Hyperlipidemia (Chronic) Hypertension (Chronic) Condition: Stable - Instructions Diet, Activity, Other Instructions: Avoid caffeine, carbonated drinks, citrus, and eating or drinking anything within 3 hours of bedtime. Sit upright for 2-3 hours after meals to help reduce your acid reflux. Consider seeing a Heel Stainer if your heartburn continues. You were admitted to the hospital because you passed out at home. You were found to have a stroke on MRI imaging of your brain. Follow-up with a Neurologist within one week for further evaluation, contact information for Dr. Rice, the neurologist who saw you in the hospital, has been provided to you. Also, follow-up with your primary care doctor in one week. Measure your blood pressure daily and write it down. Show this log to your primary care doctor. The following changes have been made to your home medications: - Start taking Lipitor 40mg by mouth every night. - Hydralazine has been increased to 20mg by mouth three times a day. - To complete your antibiotic course for your colon inflammation. Take 1 more day of Levaquin 500mg one time per day and Flagyl 500mg three times per day ( finish on 05/07). - Continue all other medications that you take at home. If you have chest pain, shortness of breath, or any new symptoms please come back to the hospital. Referrals: Isaiah Rice MD [Staff Physician] - Ignacio Coronel [Non Staff, Medical] - Disposition: HOME - Home Medications Comprehensive Discharge Medication List: Ambulatory Orders Aspirin [ASA -] 81 mg PO DAILY #0 tab.chew 02/22/15 Polyethylene Glycol 3350 [Miralax 119 gm Btl -] 17 gm PO BID #0 bottle 02/22/15 Docusate Sodium [Colace] 100 mg PO BID PRN 04/09/15 Metformin HCl [Glucophage] 1,000 mg PO BID 04/09/15 Omeprazole [Prilosec] 20 mg PO Q2D 04/09/15 Prednisone [Deltasone -] 1 mg PO DAILY 04/09/15 Atenolol [Tenormin -] 25 mg PO DAILY 04/23/17 Latanoprost 0.005% Eye Drops [Xalatan 0.005% Eye Drops -] 1 drop OU HS 04/28/17 Timolol 0.5% [Timoptic 0.5%] 1 drop OU BID 04/28/17 Atorvastatin Ca [Lipitor] 40 mg PO HS #30 tablet 05/06/17 Fenofibrate Nanocrystallized [Fenofibrate] 48 mg PO DAILY 05/06/17 Hydralazine HCl 20 mg PO TID #180 tablet 05/06/17 Levofloxacin [Levaquin -] 500 mg PO DAILY@0600 #1 tablet 05/06/17 Metronidazole [Flagyl -] 500 mg PO TID #4 tablet 05/06/17 This patient is new to me today: No Emergency Visit: No Critical Care patient: No - Discharge Referral Referred to [facility] No
== END 2017-05-06 13:27 | disposition home or self-care (01) | DRG 65 ==
LOC: JER 18:22 → INTOOBSV 23:07 → JERBED 23:07 → UNDOADMOB 23:07 → JERBED 05-03 00:18 → J4W 05-03 01:10 → OBSVTOIN 05-04 13:51
PROVIDERS: ADMIT Internal Medicine; ATTEND Internal Medicine
DX: I63.9 Cerebral infarction, unspecified (principal); N17.9 Acute kidney failure, unspecified; K57.20 Diverticulitis of large intestine with perforation and abscess without bleeding; E11.9 Type 2 diabetes mellitus without complications; Z79.84 Long term (current) use of oral hypoglycemic drugs; E83.42 Hypomagnesemia; I10 Essential (primary) hypertension; R55 Syncope and collapse; E86.0 Dehydration; Z86.73 Personal history of transient ischemic attack (TIA), and cerebral infarction without residual deficits
CPT/HCPCS: 36415; 70450-TC; 70552-TC; 71010-TC; 80048; 80053; 80061; 81003; 82550; 83540; 83550; 83721; 83735; 84100; 84443; 84484; 85025; 85027; 85610; 93005; 93010; 93306-TC; 93880-TC; 97116-GP; 97161-GP; 99285-25; C1887; G0378

== ENCOUNTER 2017-06-02 17:12 | Emergency (ER) | payer MEDICARE, OTHER ==
[2017-06-02 17:47] VITALS: BP 148/77; PULSE 76; TEMP 98.2; BMI 29.9
--- NOTE | 2017-06-02 19:58 | PDOC ---
History of Present Illness - General Chief Complaint: Pain Stated Complaint: ABD PAIN Time Seen by Provider: 06/02/17 17:47 - History of Present Illness Initial Comments: 06/02/17 19:58 CHIEF COMPLAINT: abd pain HISTORY OF PRESENT ILLNESS: 87 yo F with hx of of diabetes mellitus, hypertension, diverticulitis, and TIA presents to ED with lower abdominal pain since yesterday. Patient reports that she was recently seen in this ED and diagnosed with diverticulitis, and this pain is similar. She reports that her last BM was yesterday and was "kind of hard." Daughter is at bedside and she reports that the patient vomited one time today. No recent travel or sick contacts. PAST MEDICAL HISTORY: Denies past medical history FAMILY HISTORY: Denies SOCIAL HISTORY: Denies tobacco, alcohol, illicit drug use. SURGICAL HISTORY: Denies ALLERGIES: No known drug allergies REVIEW OF SYSTEMS General/Constitutional: Denies fever or chills. Denies weakness, weight change. HEENT: Denies change in vision. Denies ear pain or discharge. Denies sore throat. Cardiovascular: Denies chest pain or shortness of breath. Respiratory: Denies cough, wheezing, or hemoptysis. Gastrointestinal: LLQ abd pain. Vomiting x 1 today. Denies diarrhea, rectal bleeding. Genitourinary: Denies dysuria, frequency, or change in urination. Musculoskeletal: Denies joint or muscle swelling or pain. Denies neck or back pain. Skin and breasts: Denies rash or easy bruising. Neurologic: Denies headache, vertigo, loss of consciousness, or loss of sensation. PHYSICAL EXAM General Appearance: Well-appearing, appropriately dressed. No apparent distress. HEENT: EOMI, PERRLA, normal ENT inspection, normal voice, TMs normal, pharynx normal. No conjunctival pallor. No photophobia, scleral icterus. Neck: Supple. Trachea midline. No tenderness, rigidity, carotid bruit, stridor , lymphadenopathy, or thyromegaly. Respiratory/Chest: Lungs CTAB. No shortness of breath, chest tenderness, respiratory distress, accessory muscle use. No crackles, rales, rhonchi, stridor , wheezing, dullness Cardiovascular: RRR. S1, S2. No JVD, murmur, bradycardia, tachycardia. Vascular Pulses: Dorsalis-Pedis (R): 2+, Dorsalis-Pedis (L): 2+ Gastrointestinal/Abdominal: Distended abdomen, tenderness to LLQ on palpation. Normal bowel sounds. No organomegaly, pulsatile mass, guarding, hernia, hepatomegaly, splenomegaly. Lymphatic: No adenopathy, tenderness. Musculoskeletal/Extremities: Normal inspection. FROM of all extremities, normal capillary refill. Pelvis Stable. No CVA tenderness. No tenderness to extremities, pedal edema, swelling, erythema or deformity. Integumentary: Appropriate color, dry, warm. No cyanosis, erythema, jaundice or rash Neurologic: hairspring fabrication supervisor II-XII intact. Fully oriented, alert. Appropriate mood/affect. Motor strength 5/5. No appreciable EOM palsy, facial droop or sensory deficit. 06/02/17 19:59 Past History - Past Medical History Allergies/Adverse Reactions: Allergies Allergy/AdvReac Type Severity Reaction Status Date / Time No Known Allergies Allergy Verified 06/02/17 17:47 Home Medications: Ambulatory Orders Aspirin [ASA -] 81 mg PO DAILY #0 tab.chew 02/22/15 Polyethylene Glycol 3350 [Miralax 119 gm Btl -] 17 gm PO BID #0 bottle 02/22/15 Docusate Sodium [Colace] 100 mg PO BID PRN 04/09/15 Metformin HCl [Glucophage] 1,000 mg PO BID 04/09/15 Omeprazole [Prilosec] 20 mg PO Q2D 04/09/15 Prednisone [Deltasone -] 1 mg PO DAILY 04/09/15 Atenolol [Tenormin -] 25 mg PO DAILY 04/23/17 Latanoprost 0.005% Eye Drops [Xalatan 0.005% Eye Drops -] 1 drop OU HS 04/28/17 Timolol 0.5% [Timoptic 0.5%] 1 drop OU BID 04/28/17 Atorvastatin Ca [Lipitor] 40 mg PO HS #30 tablet 05/06/17 Fenofibrate Nanocrystallized [Fenofibrate] 48 mg PO DAILY 05/06/17 Hydralazine HCl 20 mg PO TID #180 tablet 05/06/17 Levofloxacin [Levaquin -] 500 mg PO DAILY@0600 #1 tablet 05/06/17 Metronidazole [Flagyl -] 500 mg PO TID #4 tablet 05/06/17 Ciprofloxacin [Cipro -] 500 mg PO Q12H #14 tablet 06/02/17 Metronidazole [Flagyl -] 500 mg PO DAILY #21 tablet 06/02/17 Anemia: No Asthma: No Cancer: No Cardiac Disorders: No CVA: (TIA,syncope) COPD: No CHF: No Dementia: No Diabetes: Yes GI Disorders: Yes (diverticulitis) Disorders: No HTN: Yes Hypercholesterolemia: No Liver Disease: Yes Suicide Attempt (Hx): No Seizures: No Thyroid Disease: No - Surgical History Cholecystectomy: Yes - Psycho/Social/Smoking Cessation Hx Anxiety: No Suicidal Ideation: No Smoking Status: No Smoking History: Never smoked Have you smoked in the past 12 months: No Number of Cigarettes Smoked Daily: 0 Information on smoking cessation initiated: No Hx Alcohol Use: No Drug/Substance Use Hx: No Substance Use Type: None Hx Substance Use Treatment: No *Physical Exam - Vital Signs Last Vital Signs Temp Pulse Resp BP Pulse Ox 98.2 F 76 18 148/77 96 06/02/17 17:25 06/02/17 17:25 06/02/17 17:25 06/02/17 17:25 06/02/17 17:25 ED Treatment Course - LABORATORY CBC & Chemistry Diagram: 06/02/17 20:20 06/02/17 20:20 Medical Decision Making - Medical Decision Making 06/02/17 20:03 87 yo F with hx of of diabetes mellitus, hypertension, diverticulitis, and TIA presents to ED with lower abdominal pain since yesterday. -CBC, CMP, PT/INR, card profile, Mg *DC/Admit/Observation/Transfer Diagnosis at time of Disposition: Abdominal pain Qualifiers: Abdominal location: left lower quadrant Qualified Code(s): R10.32 - Left lower quadrant pain - Discharge Dispostion Disposition: HOME Condition at time of disposition: Stable Admit: No - Prescriptions Prescriptions: Ciprofloxacin [Cipro -] 500 mg PO Q12H #14 tablet Metronidazole [Flagyl -] 500 mg PO DAILY #21 tablet - Referrals Referrals: Ignacio Coronel [Primary Care Provider] - Rafita Hernández DO [Staff Physician] - - Patient Instructions Printed Discharge Instructions: DI for Abdominal Pain-Adult Additional Instructions: Please take medications as prescribed. As discussed, you must follow up with Dr. Coronel and the cat operator within the next 3-4 days. You need to get a follow up colonoscopy for further evaluation of your recurrent abdominal pain. If you experience any worsening abdominal pain, persistent vomiting, fever, chills, rectal bleeding, or any new or worsening symptoms, please return to the ER.
--- NOTE | 2017-06-02 20:27 | PDOC ---
*Physical Exam - Vital Signs Last Vital Signs Temp Pulse Resp BP Pulse Ox 98.2 F 76 18 148/77 96 06/02/17 17:25 06/02/17 17:25 06/02/17 17:25 06/02/17 17:25 06/02/17 17:25 ED Treatment Course - LABORATORY CBC & Chemistry Diagram: 06/02/17 20:20 06/02/17 20:20 Medical Decision Making - Medical Decision Making 06/02/17 20:27 agree with care from MANUELA Sinha *DC/Admit/Observation/Transfer Diagnosis at time of Disposition: Abdominal pain - Discharge Dispostion Disposition: HOME Condition at time of disposition: Stable - Prescriptions Prescriptions: Ciprofloxacin [Cipro -] 500 mg PO Q12H #14 tablet Metronidazole [Flagyl -] 500 mg PO DAILY #21 tablet - Referrals Referrals: Rafita Hernández DO [Staff Physician] - Ignacio Coronel [Primary Care Provider] - - Patient Instructions Printed Discharge Instructions: DI for Abdominal Pain-Adult Additional Instructions: Please take medications as prescribed. As discussed, you must follow up with Dr. Coronel and the legal file clerk within the next 3-4 days. You need to get a follow up colonoscopy for further evaluation of your recurrent abdominal pain. If you experience any worsening abdominal pain, persistent vomiting, fever, chills, rectal bleeding, or any new or worsening symptoms, please return to the ER.
[2017-06-02 20:49] LABS: BASOPHIL 0.6 % (0-2.0); EOSINOPHIL 0.6 % (0-4.5); MCH 29.5 pg (25.7-33.7); MCHC 32.5 g/dl (32.0-36.0); MEAN CELL VOLUME 90.6 fl (80-96); MEAN PLT VOLUME 9.9 fl (7.5-11.1); NEUTROPHILS 78.6 % (42.8-82.8); PLATELET COUNT 220 K/MM3 (134-434); RDW 14.6 % (11.6-15.6); WHITE BLOOD COUNT 11.2 K/mm3 (4.0-10.0)
[2017-06-02 20:52] LABS: URINE APPEARANCE CLEAR; URINE BILIRUBIN NEGATIVE (NEGATIVE); URINE BLOOD NEGATIVE (NEGATIVE); URINE COLOR LTYELLOW; URINE GLUCOSE (UA) NEGATIVE (NEGATIVE); URINE KETONE NEGATIVE (NEGATIVE); URINE LEUK ESTERASE NEGATIVE (NEGATIVE); URINE NITRITE NEGATIVE (NEGATIVE); URINE PROTEIN NEGATIVE (NEGATIVE); URINE UROBILINOGEN NEGATIVE mg/dL (0.2-1.0)
[2017-06-02 21:18] LABS: ALBUMIN 3.5 g/dl (3.4-5.0); ALK PHOS 56 U/L (45-117); ANION GAP 7 (8-16); BILIRUBIN,TOTAL 0.5 mg/dL (0.2-1.0); CALCIUM 9.5 mg/dL (8.5-10.1); CO2 26 mmol/L (21-32); CREATININE 0.9 mg/dL (0.55-1.02); GLUCOSE,RANDOM 154 mg/dL (74-106); SGOT/AST 10 U/L (15-37); SGPT/ALT 16 U/L (12-78); TOT PROT 6.7 g/dl (6.4-8.2)
[2017-06-03 09:47] LABS: CPK 78 IU/L (26-192); TROPONIN I < 0.02 ng/ml (0.00-0.05)
--- NOTE | 2017-06-03 14:42 | EKG ---
Test Reason : Blood Pressure : / mmHG Vent. Rate : 075 BPM Atrial Rate : 075 BPM P-R Int : 168 ms QRS Dur : 088 ms QT Int : 378 ms P-R-T Axes : 044 -15 142 degrees QTc Int : 422 ms NORMAL SINUS RHYTHM MINIMAL VOLTAGE CRITERIA FOR LVH, MAY BE NORMAL VARIANT T WAVE ABNORMALITY, CONSIDER LATERAL ISCHEMIA ABNORMAL ECG WHEN COMPARED WITH ECG OF 02-MAY-2017 19:25, T WAVE INVERSION MORE EVIDENT IN LATERAL LEADS Confirmed by DANIE AKERS MD ([id number]) on 06/03/2017 2:41:46 PM Referred By: Confirmed By:DANIE AKERS MD
== END 2017-06-02 22:26 | disposition home or self-care (01) ==
LOC: JER 17:12
DX: R10.32 Left lower quadrant pain (principal); I10 Essential (primary) hypertension; E11.9 Type 2 diabetes mellitus without complications; K57.92 Diverticulitis of intestine, part unspecified, without perforation or abscess without bleeding; Z86.73 Personal history of transient ischemic attack (TIA), and cerebral infarction without residual deficits; Z79.82 Long term (current) use of aspirin; Z79.84 Long term (current) use of oral hypoglycemic drugs
CPT/HCPCS: 36415; 80053; 81003; 83690; 84484; 85025; 93005; 93010; 99282-25

== ENCOUNTER 2018-11-17 08:36 | Emergency (ER) | payer MEDICARE, OTHER ==
[2018-11-17 08:45] VITALS: BP 184/91; PULSE 84; TEMP 98.1; BMI 26.3
[2018-11-17] MEDS ORDERED: KETOROLAC TROMETHAMINE 60 MG/2 ML VIAL IM ONE (09:07)
[2018-11-17] MEDS ORDERED: KETOROLAC TROMETHAMINE 30 MG/1 ML VIAL IM ONE (09:19)
[2018-11-17] MEDS ORDERED: KETOROLAC TROMETHAMINE 30 MG/1 ML VIAL ONE (09:19)
--- NOTE | 2018-11-17 09:19 | PDOC ---
History of Present Illness - General Chief Complaint: Pain, Acute Stated Complaint: LT ARM PAIN Time Seen by Provider: 11/17/18 08:54 History Source: Patient, Family (son) Exam Limitations: Clinical Condition - History of Present Illness Initial Comments: 11/17/18 09:14 Patient with history of insulin-dependent diabetes, hyperlipidemia and hypertension on meds present with complaint of left shoulder pain for 3 days. Patient reported her son thought she was going to diabetic coma while she was sleeping and started pulling her left arm trying to put In might have dislocated her left shoulder. Patient report unable to elevate left upper arm. Patient reports severe pain to left shoulder especially when she tried to elevate left upper arm. Patient denies numbness or tingling sensation to left shift shoulder or hands. 11/17/18 09:19 Timing/Duration: other (3 days) Past History - Past Medical History Allergies/Adverse Reactions: Allergies Allergy/AdvReac Type Severity Reaction Status Date / Time No Known Allergies Allergy Verified 06/02/17 17:47 Home Medications: Ambulatory Orders Aspirin [ASA -] 81 mg PO DAILY #0 tab.chew 02/22/15 Polyethylene Glycol 3350 [Miralax 119 gm Btl -] 17 gm PO BID #0 bottle 02/22/15 Docusate Sodium [Colace] 100 mg PO BID PRN 04/09/15 Metformin HCl [Glucophage] 1,000 mg PO BID 04/09/15 Omeprazole [Prilosec] 20 mg PO Q2D 04/09/15 predniSONE [Deltasone -] 1 mg PO DAILY 04/09/15 Atenolol [Tenormin -] 25 mg PO DAILY 04/23/17 Latanoprost 0.005% Eye Drops [Xalatan 0.005% Eye Drops -] 1 drop OU HS 04/28/17 Timolol 0.5% [Timoptic 0.5%] 1 drop OU BID 04/28/17 Atorvastatin Ca [Lipitor] 40 mg PO HS #30 tablet 05/06/17 Fenofibrate Nanocrystallized [Fenofibrate] 48 mg PO DAILY 05/06/17 Hydralazine HCl 20 mg PO TID #180 tablet 05/06/17 levoFLOXacin [Levaquin -] 500 mg PO DAILY@0600 #1 tablet 05/06/17 metroNIDAZOLE [Flagyl -] 500 mg PO TID #4 tablet 05/06/17 Ciprofloxacin [Cipro -] 500 mg PO Q12H #14 tablet 06/02/17 metroNIDAZOLE [Flagyl -] 500 mg PO DAILY #21 tablet 06/02/17 Naproxen 500 mg PO BID PRN #20 tablet 11/17/18 Anemia: No Asthma: No Cancer: No Cardiac Disorders: No CVA: (TIA,syncope) COPD: No CHF: No Dementia: No Diabetes: Yes GI Disorders: Yes (diverticulitis) Disorders: No HTN: Yes Hypercholesterolemia: No Liver Disease: Yes Seizures: No Thyroid Disease: No - Surgical History Cholecystectomy: Yes - Immunization History Immunization Up to Date: No - Suicide/Smoking/Psychosocial Hx Smoking Status: No Smoking History: Never smoked Have you smoked in the past 12 months: No Number of Cigarettes Smoked Daily: 0 Information on smoking cessation initiated: No Hx Alcohol Use: No Drug/Substance Use Hx: No Substance Use Type: None Hx Substance Use Treatment: No Review of Systems - Review of Systems Able to Perform ROS?: Yes Is the patient limited Kyrgyz proficient: No Constitutional: Yes: Weakness (left shoulder) HEENTM: No: Symptoms Reported Respiratory: No: Symptoms reported Cardiac (ROS): No: Symptoms Reported ABD/GI: No: Symptoms Reported Musculoskeletal: Yes: Symptoms Reported, See HPI, Joint Pain (left shoulder), Muscle Pain (left shoulder), Muscle Weakness (left upper arm) Neurological: No: Numbness, Paresthesia, Tingling All Other Systems: Reviewed and Negative *Physical Exam - Vital Signs Last Vital Signs Temp Pulse Resp BP Pulse Ox 98.1 F 84 16 184/91 H 98 11/17/18 08:41 11/17/18 08:41 11/17/18 08:41 11/17/18 08:41 11/17/18 08:41 - Physical Exam Comments: 11/17/18 09:21 GENERAL: Well developed, well nourished. Awake and alert. moderate acute distress. CARDIOVASCULAR: Regular rate and rhythm. No murmurs, rubs, or gallops. PULMONARY: No evidence of respiratory distress. Lungs clear to auscultation bilaterally. No wheezing, rales or rhonchi. ABDOMINAL: Soft. Non-tender. Non-distended. No rebound or guarding. No organomegaly. Normoactive bowel sounds MUSCULOSKELETAL : moderate tenderness over AC joint and back of left shoulder with low riding left shoulder. decreased passive ROM due to pain. Patient guarding left upper upper and does not want elevation of left upper arm. No bony deformities SKIN: Warm and dry. Normal capillary refill. No rashes. No jaundice. NEUROLOGICAL: Alert, awake, appropriate. normal sensory to left LE PSYCHIATRIC: Cooperative. Good eye contact. Appropriate mood and affect. 11/17/18 09:24 General Appearance: Yes: Nourished, Appropriately Dressed, Moderate Distress Moderate Sedation - Procedure Monitoring Vital Signs: Procedure Monitoring Vital Signs Temperature 98.1 F 11/17/18 08:41 Pulse Rate 84 11/17/18 08:41 Respiratory Rate 16 11/17/18 08:41 Blood Pressure 184/91 H 11/17/18 08:41 O2 Sat by Pulse Oximetry (%) 98 11/17/18 08:41 ED Treatment Course - RADIOLOGY Radiology Studies Ordered: Category Date Time Status HUMERUS-LEFT [RAD] Stat Radiology 11/17/18 09:07 Ordered SHOULDER-W/TRANS-LEFT [RAD] Stat Radiology 11/17/18 09:07 Ordered Medical Decision Making - Medical Decision Making 11/17/18 09:23 Patient with history of insulin-dependent diabetes, hyperlipidemia and hypertension on meds present with complaint of left shoulder pain for 3 days. Patient reported her son thought she was going to diabetic coma while she was sleeping and started pulling her left arm trying to put In might have dislocated her left shoulder. Exam significant for moderate tenderness over AC joint and back of left shoulder with low riding left shoulder. decreased passive ROM due to pain. Patient guarding left upper upper and does not want elevation of left upper arm.. x-rays of left shoulder and humerus ordered. Toradol 30mg IM ordered for pain 11/17/18 10:21 Shoulder x-ray shows no acute dislocation or fracture. Mild arthritic changes to head of humerus. Mild buckling to mid shaft of humerus. Patient placed on sling to help support left shoulder. Naproxen ordered as needed for pain. Patient to follow-up with orthopedics as soon as possible. 11/17/18 10:22 Patient with random fingerstick of 336. Patient report taking her insulin this AM prior to arrival and took her metformin now. Patient advised to do home glucose checks and monitor levels and follow-up with PCP as soon as possible for diabetes follow-up *DC/Admit/Observation/Transfer Diagnosis at time of Disposition: Shoulder sprain or strain Diabetes Qualifiers: Diabetes mellitus type: type 2 Diabetes mellitus [facility] insulin use: with [facility] use Diabetes mellitus complication status: without complication Qualified Code(s): E11.9 - Type 2 diabetes mellitus without complications - Discharge Dispostion Disposition: HOME Condition at time of disposition: Stable Decision to Admit order: No - Prescriptions Prescriptions: Naproxen 500 mg PO BID PRN #20 tablet PRN Reason: shoulder pain - Referrals Referrals: Yunior Bray MD [Staff Physician] - - Patient Instructions Printed Discharge Instructions: How to Use a Sling, Shoulder Sprain Additional Instructions: Use provided sling daily to help support left shoulder. Do not use sling for more than 4 days at a time. Take prescribed medication as needed for pain. Follow-up referred orthopedics as soon as possible - Post Discharge Activity
== END 2018-11-17 10:42 | disposition home or self-care (01) ==
LOC: JER 08:36
PROC: 3E0233Z Introduction of Anti-inflammatory into Muscle, Percutaneous Approach (ICD-10-PCS; principal; 2018-11-17)
DX: S43.402A Unspecified sprain of left shoulder joint, initial encounter (principal); W50.0XXA Accidental hit or strike by another person, initial encounter; Y93.89 Activity, other specified; Y92.009 Unspecified place in unspecified non-institutional (private) residence as the place of occurrence of the external cause; E11.9 Type 2 diabetes mellitus without complications; E78.5 Hyperlipidemia, unspecified; I10 Essential (primary) hypertension; Z79.4 Long term (current) use of insulin
CPT/HCPCS: 73030-TC-LT-FY; 73060-TC-LT-FY; 82962; 96372; 99281-25

== ENCOUNTER 2018-12-15 08:26 | Emergency (ER) | payer OTHER ==
[2018-12-15 08:36] VITALS: TEMP 98.3; BMI 29.1
--- NOTE | 2018-12-15 08:47 | PDOC ---
History of Present Illness - General Chief Complaint: Pain Stated Complaint: BODY PAIN Time Seen by Provider: 12/15/18 08:45 History Source: Patient, Old Records Exam Limitations: No Limitations - History of Present Illness Initial Comments: 12/15/18 08:47 CHIEF COMPLAINT: "Pain all over" HISTORY OF PRESENT ILLNESS: This is an 88-year-old female with insulin- dependent diabetes, hyperlipidemia, and hypertension as well as prior visit here on 11/17 for left shoulder pain brought in by her and son for evaluation of "pain all over." The patient reports that she believes her symptoms started one month ago with her shoulder injury. For the past 3 days, she has been experiencing total body pain which she describes as aching. This is somewhat relieved by Tylenol. She denies fevers/chills, chest pain, shortness of breath, abdominal pain, nausea/vomiting/diarrhea/constipation, or any other symptoms. She denies new injuries. The patient is ordinarily ambulatory and independent at home, but is now having difficulty moving around because of the pain. Vital signs on arrival are notable for pulse of 95 and BP 167/76. REVIEW OF SYSTEMS: GENERAL/CONSTITUTIONAL: No fever or chills. No weakness. No weight change. HEAD, EYES, EARS, NOSE AND THROAT: No change in vision. No ear pain or discharge. No sore throat. CARDIOVASCULAR: No chest pain or palpitations. RESPIRATORY: No cough, wheezing, or shortness of breath. GASTROINTESTINAL: No nausea, vomiting, diarrhea or constipation. GENITOURINARY: No dysuria, frequency, or change in urination. MUSCULOSKELETAL: Left shoulder pain, worse with movement. Total body pain. SKIN: No rash or easy bruising. NEUROLOGIC: No headache, vertigo, loss of consciousness, or loss of sensation. PSYCHIATRIC: No depression or anxiety. ENDOCRINE: No increased thirst. No abnormal weight change. HEMATOLOGIC/LYMPHATIC: No anemia, easy bleeding, or history of blood clots. ALLERGIC/IMMUNOLOGIC: No hives or skin allergy. No latex allergy. PHYSICAL EXAM: GENERAL: The patient is awake, alert, and fully oriented, in no acute distress. HEAD: Normal with no signs of trauma. ENT: Pupils equal, round and reactive to light, extraocular movements intact, sclera anicteric, conjunctiva clear. Neck supple. LUNGS: Clear to auscultation bilaterally. Normal excursion. No respiratory distress or use of accessory muscles. CV: RRR, S1/S2, no MRG. Cap refill < 2 sec. ABDOMEN: Soft, non-distended, non-tender. EXTREMITIES: Limited ROM of left arm, shoulder pain with left arm elevation/ abduction, unable to touch contralaeteral shoulder. No other focal muscular tenderness. NEUROLOGICAL: Normal speech. CN II-XII grossly intact. PSYCH: Normal mood, normal affect. SKIN: Warm, dry, normal turgor, no rashes or lesions noted. Past History - Past Medical History Allergies/Adverse Reactions: Allergies Allergy/AdvReac Type Severity Reaction Status Date / Time No Known Allergies Allergy Verified 12/15/18 08:32 Home Medications: Ambulatory Orders Aspirin [ASA -] 81 mg PO DAILY #0 tab.chew 02/22/15 Polyethylene Glycol 3350 [Miralax 119 gm Btl -] 17 gm PO BID #0 bottle 02/22/15 Docusate Sodium [Colace] 100 mg PO BID PRN 04/09/15 Metformin HCl [Glucophage] 1,000 mg PO BID 04/09/15 Omeprazole [Prilosec] 20 mg PO Q2D 04/09/15 Latanoprost 0.005% Eye Drops [Xalatan 0.005% Eye Drops -] 1 drop OU HS 04/28/17 Timolol 0.5% [Timoptic 0.5%] 1 drop OU BID 04/28/17 Atorvastatin Ca [Lipitor] 40 mg PO HS #30 tablet 05/06/17 Hydralazine HCl 20 mg PO TID #180 tablet 05/06/17 Gabapentin [Neurontin -] 300 mg PO Q8H 11/17/18 Metoprolol Succinate [Toprol Xl] 100 mg PO DAILY 11/17/18 Naproxen 500 mg PO BID PRN #20 tablet 11/17/18 Sitagliptin Phosphate [Januvia] 100 mg PO DAILY 11/17/18 Anemia: No Asthma: No Cancer: No Cardiac Disorders: No CVA: (TIA,syncope) COPD: No CHF: No Dementia: No Diabetes: Yes GI Disorders: Yes (diverticulitis) Disorders: No HTN: Yes Hypercholesterolemia: No Liver Disease: Yes Seizures: No Thyroid Disease: No - Surgical History Cholecystectomy: Yes - Immunization History Immunization Up to Date: No - Suicide/Smoking/Psychosocial Hx Smoking Status: No Smoking History: Never smoked Have you smoked in the past 12 months: No Number of Cigarettes Smoked Daily: 0 Hx Alcohol Use: No Drug/Substance Use Hx: No Substance Use Type: None Hx Substance Use Treatment: No *Physical Exam - Vital Signs Last Vital Signs Temp Pulse Resp BP Pulse Ox 98.3 F 95 H 18 163/76 98 12/15/18 08:32 12/15/18 08:32 12/15/18 08:32 12/15/18 08:32 12/15/18 08:32 Moderate Sedation - Procedure Monitoring Vital Signs: Procedure Monitoring Vital Signs Temperature 98.3 F 12/15/18 08:32 Pulse Rate 95 H 12/15/18 08:32 Respiratory Rate 18 12/15/18 08:32 Blood Pressure 163/76 12/15/18 08:32 O2 Sat by Pulse Oximetry (%) 98 12/15/18 08:32 ED Treatment Course - LABORATORY CBC & Chemistry Diagram: 12/15/18 09:39 12/15/18 09:39 Medical Decision Making - Medical Decision Making 12/15/18 10:03 A/P: 88-year-old female with repeat visit for left shoulder pain, as well as total body pain/aches. 1. Ofirmev for pain 2. Repeat shoulder x-ray 3. Basic labs 4. Influenza swab (body aches?) 5. Reevaluate 12/15/18 11:46 Labs reviewed and are unremarkable. Shoulder x-ray with arthropathy and chronic degenerative rotator cuff tear. Will refer her to orthopedics. Patient reevaluated and is feeling better after IV Tylenol. Patient and family feel comfortable with discharge, analgesia, and outpatient follow-up. Return precautions reviewed. *DC/Admit/Observation/Transfer Diagnosis at time of Disposition: Body aches Shoulder pain, left Qualifiers: Chronicity: chronic Qualified Code(s): M25.512 - Pain in left shoulder; G89.29 - Other chronic pain - Discharge Dispostion Disposition: HOME Condition at time of disposition: Improved Decision to Admit order: No - Referrals Referrals: Luis Alfredo Jensen DO [Staff Physician] - - Patient Instructions Printed Discharge Instructions: DI for Rotator Cuff Injury Additional Instructions: Rest and take Tylenol No. 3 as needed for severe pain. This medication may cause some drowsiness. Call and make a follow-up appointment with orthopedics (referral and close). Return here for uncontrolled pain or any other concerning symptoms. - Post Discharge Activity
[2018-12-15] MEDS ORDERED: ACETAMINOPHEN 1000 MG/100 ML VIAL (NON FORMULARY) IVPB ONE (09:24)
[2018-12-15 09:43] LABS: BASO % 0.7 % (0-2.0); EOS % 0.6 % (0-4.5); HEMATOCRIT 33.7 % (32.4-45.2); HEMOGLOBIN 11.6 GM/dL (10.7-15.3); LYMPH % 11.4 % (8-40); MCH 31.2 pg (25.7-33.7); MCHC 34.4 g/dl (32.0-36.0); MEAN CELL VOLUME 90.5 fl (80-96); MEAN PLT VOLUME 9.7 fl (7.5-11.1); MONO % 8.8 % (3.8-10.2); NEUT % 78.5 % (42.8-82.8); PLATELET COUNT 184 K/MM3 (134-434); RBC 3.72 M/mm3 (3.60-5.2); RDW 14.2 % (11.6-15.6); WHITE BLOOD COUNT 8.9 K/mm3 (4.0-10.0)
[2018-12-15 10:11] LABS: ALBUMIN 3.4 g/dl (3.4-5.0); ALK PHOS 84 U/L (45-117); ANION GAP 8 MMOL/L (8-16); BILIRUBIN,TOTAL 0.7 mg/dL (0.2-1); BLOOD UREA NITROGEN 13 mg/dL (7-18); CALCIUM 8.8 mg/dL (8.5-10.1); CHLORIDE 103 mmol/L (98-107); CO2 26 mmol/L (21-32); GLUCOSE,RANDOM 211 mg/dL (74-106); POTASSIUM 3.8 mmol/L (3.5-5.1); SGOT/AST 12 U/L (15-37); SGPT/ALT 17 U/L (13-61); SODIUM 137 mmol/L (136-145); TOT PROT 6.5 g/dl (6.4-8.2)
[2018-12-15] MEDS ORDERED: ACETAMINOPHEN INJECTION 100 ML IVPB ONE (10:21)
[2018-12-15 10:38] LABS: ACETONE SERUM NEGATIVE (NEGATIVE)
[2018-12-15 12:17] VITALS: BP 164/88; PULSE 80
== END 2018-12-15 12:16 | disposition home or self-care (01) ==
LOC: JER 08:26
PROC: 3E033NZ Introduction of Analgesics, Hypnotics, Sedatives into Peripheral Vein, Percutaneous Approach (ICD-10-PCS; principal; 2018-12-15)
DX: R52 Pain, unspecified (principal); M25.512 Pain in left shoulder; G89.29 Other chronic pain; I10 Essential (primary) hypertension; E11.9 Type 2 diabetes mellitus without complications
CPT/HCPCS: 36415; 73030-TC-LT-FY; 80053; 82009; 85025; 87804; 96374; 99283-25; J0131